=== PATIENT | male | born 1935 | race African-American/Black ===

== ENCOUNTER 2017-02-08 14:55 | Inpatient (IN) | payer MEDICAID, MEDICARE, OTHER ==
[~2017-02-08] VITALS: Ht 172.7 cm; Wt 89.8 kg
[2017-02-08] VITALS (9 sets, daily range): BP systolic 115–154; BP diastolic 54–79
--- NOTE | 2017-02-08 15:29 | Emergency Room Report ---
History of Present Illness General Chief Complaint: Dizziness Source: Patient Present Illness HPI 81-year-old male history of CAD with 1 stent, also with a pacemaker, hypertension, presenting with dizziness and lightheadedness for one day. Patient states that the dizziness occurs only when he walks, and is relieved with rest. Denying any headache, blurry vision, nausea or vomiting. Denies any palpitations or shortness of breath. Patient states that every single time he walks he gets the dizziness, however there are no other relieving factors. Patient states that he has been eating and drinking normally, denies any recent viral illness or diarrhea. Allergies: Coded Allergies: No Known Allergies (Unverified , 02/08/17) Patient History Past Medical History: see triage record Past Surgical History: none Pertinent Family History: none Reviewed Nursing Documentation: PMH: Agreed, PSxH: Agreed Nursing Documentation-PMH Past Medical History: No History, Except For Hx Cardiac Problems: Yes - angioplasty, "fluid in lungs" Hx Pacemaker: Yes Review of Systems All Other Systems: negative except mentioned in HPI Physical Exam Vital Signs Date Time Temp Pulse Resp B/P (MAP) Pulse Ox O2 Delivery O2 Flow Rate FiO2 02/08/17 14:58 97.3 65 18 114/72 98 Room Air Sp02 EP Interpretation: reviewed, normal General Appearance: normal inspection, well appearing, no apparent distress, alert, GCS 15, non-toxic Head: normocephalic, atraumatic Eyes: bilateral eye normal inspection, bilateral eye PERRL, bilateral eye EOMI ENT: normal ENT inspection, normal pharynx, normal voice, moist mucus membranes Neck: normal inspection, full range of motion, supple Respiratory: normal inspection, lungs clear, normal breath sounds, no respiratory distress, no retraction, no wheezing, speaking full sentences, chest symmetrical Cardiovascular #1: normal inspection, regular rate, rhythm, no edema, normal capillary refill Cardiovascular #2: 2+ radial (R), 2+ radial (L) Gastrointestinal: normal inspection, non tender, soft, non-distended, no guarding Genitourinary: no CVA tenderness Musculoskeletal: normal inspection, back normal, normal range of motion, non- tender Neurologic: normal inspection, alert, oriented x3, responsive, viticulturist III-XII nml as tested, motor strength/tone normal, sensory intact, speech normal, other - No nystagmus Psychiatric: normal inspection, judgement/insight normal, memory normal Skin: normal inspection, normal color, no rash, warm/dry, well hydrated, normal turgor Medical Decision Making Diagnostic Impression: Primary Impression: Dizziness of unknown cause ER Course 81-year-old male with one day of dizziness on exertion DDX: ACS vs. 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 Laboratory Tests Test 02/08/17 16:00 02/08/17 16:20 White Blood Count 6.4 K/UL (4.8-10.8) Red Blood Count 4.78 M/UL (4.70-6.10) Hemoglobin 14.1 G/DL (14.2-18.0) L Hematocrit 42.2 % (42.0-52.0) Mean Corpuscular Volume 88 FL (80-99) Mean Corpuscular Hemoglobin 29.5 PG (27.0-31.0) Mean Corpuscular Hemoglobin Concent 33.4 G/DL (32.0-36.0) Red Cell Distribution Width 12.9 % (11.6-14.8) Platelet Count 139 K/UL (150-450) L Mean Platelet Volume 9.8 FL (6.5-10.1) Neutrophils (%) (Auto) 63.8 % (45.0-75.0) Lymphocytes (%) (Auto) 24.6 % (20.0-45.0) Monocytes (%) (Auto) 9.6 % (1.0-10.0) Eosinophils (%) (Auto) 0.5 % (0.0-3.0) Basophils (%) (Auto) 1.6 % (0.0-2.0) Sodium Level 141 mEQ/L (135-145) Potassium Level 4.7 mEQ/L (3.4-4.9) Chloride Level 105 mEQ/L (98-107) Carbon Dioxide Level 25 mEQ/L (20-30) Anion Gap 11 (5-15) Blood Urea Nitrogen 16 mg/dL (7-23) Creatinine 1.5 mg/dL (0.7-1.2) H Estimate Glomerular Filtration Rate mL/min (>60) Glucose Level 119 mg/dL (74-106) H Calcium Level 9.0 mg/dL (8.6-10.2) Total Bilirubin 0.3 mg/dL (0.0-1.2) Aspartate Amino Transferase (AST) 19 U/L (5-40) Alanine Aminotransferase (ALT) 11 U/L (3-41) Alkaline Phosphatase 70 U/L (40-129) Total Creatine Kinase 107 U/L (38-174) Creatine Kinase MB 2.3 ng/mL (< 6.7) Creatine Kinase MB Relative Index 2.1 Troponin I < 0.30 ng/mL (<=0.30) Pro-B-Type Natriuretic Peptide 2300 pg/mL (0-450) H Total Protein 7.0 g/dL (6.6-8.7) Albumin 3.9 g/dL (3.5-5.2) Globulin 3.1 g/dL Albumin/Globulin Ratio 1.2 (1.0-2.7) Urine Color Yellow Urine Appearance Clear Urine pH 6 (4.5-8.0) Urine Specific [place] 1.020 (1.005-1.035) Urine Protein 3+ (NEGATIVE) H Urine Glucose (UA) Negative (NEGATIVE) Urine Ketones Negative (NEGATIVE) Urine Occult Blood Negative (NEGATIVE) Urine Nitrite Negative (NEGATIVE) Urine Bilirubin Negative (NEGATIVE) Urine Urobilinogen 8 MG/DL (0.0-1.0) H Urine Leukocyte Esterase Negative (NEGATIVE) Urine RBC 0-2 /HPF (0 - 0) H Urine WBC 0-2 /HPF (0 - 0) Urine Squamous Epithelial Cells None /LPF (NONE/OCC) Urine Calcium Oxalate Crystals Few /LPF (NONE) Urine Bacteria None /HPF (NONE) EKG Diagnostic Results Rate: normal Rhythm: other - V paced ST Segments: other - borderline peaked T waves, TWI aVL, discordant KRISTIN precordial leads ASA given to the pt in ED: No Rhythm Strip Diag. Results EP Interpretation: yes Rate: 65 Rhythm: other - V paced CT/MRI/US Diagnostic Results CT/MRI/US Diagnostic Results : Imaging Test Ordered: CT head Impression Impression No intracranial hemorrhage, mass effect or edema No evidence of acute cortical stroke Ventricular small vessel ischemic change. Cerebral atrophy. via [facility] Electronically signed by Christina Gonzales MD Last Vital Signs Date Time Temp Pulse Resp B/P (MAP) Pulse Ox O2 Delivery O2 Flow Rate FiO2 02/08/17 14:58 97.3 65 18 114/72 98 Room Air Disposition: ADMITTED INPATIENT Condition: Serious Christina Gonzales M.D. Feb 08, 2017 15:29
[2017-02-08 16:31] LABS: BASOPHILS % (AUTO) 1.6 % (0.0-2.0); EOSINOPHILS % (AUTO) 0.5 % (0.0-3.0); LYMPHOCYTES % (AUTO) 24.6 % (20.0-45.0); MEAN CORPUSCULAR HEMOGLOBIN 29.5 PG (27.0-31.0); MEAN CORPUSCULAR HGB CONC 33.4 G/DL (32.0-36.0); MEAN CORPUSCULAR VOLUME 88 FL (80-99); MEAN PLATELET VOLUME 9.8 FL (6.5-10.1); MONOCYTES % (AUTO) 9.6 % (1.0-10.0); NEUTROPHILS % (AUTO) 63.8 % (45.0-75.0); PLATELET COUNT 139 K/UL (150-450); RED BLOOD COUNT 4.78 M/UL (4.70-6.10); RED CELL DISTRIBUTION WIDTH 12.9 % (11.6-14.8); WHITE BLOOD COUNT 6.4 K/UL (4.8-10.8)
--- NOTE | 2017-02-08 16:40 | Diagnostic Imaging Report ---
Indication: Chest pain Comparison: December 27, 2005 A single view chest radiograph was obtained. Findings: No definite infiltrate or pulmonary vascular congestion identified. The heart is enlarged. The bones are osteopenic. Impression: No acute disease
[2017-02-08 16:48] LABS: TROPONIN I < 0.30 ng/mL (<=0.30)
[2017-02-08 16:56] LABS: ALANINE AMINOTRANSFERASE 11 U/L (3-41); ALBUMIN/GLOBULIN RATIO 1.2 (1.0-2.7); ANION GAP 11 (5-15); ASPARTATE AMINO TRANSFERASE 19 U/L (5-40); CARBON DIOXIDE 25 mEQ/L (20-30); CHLORIDE 105 mEQ/L (98-107); CREATININE 1.5 mg/dL (0.7-1.2); HEMOLYSIS 1; POTASSIUM 4.7 mEQ/L (3.4-4.9); SODIUM 141 mEQ/L (135-145)
[2017-02-08 17:04] LABS: APPEARANCE,URINE CLEAR; KETONES,URINE NEGATIVE (NEGATIVE); LEUKOCYTE ESTERASE ,URINE NEGATIVE (NEGATIVE); NITRITE,URINE NEGATIVE (NEGATIVE); PH,URINE 6 (4.5-8.0); PROTEIN,URINE 3+ (NEGATIVE); UROBILINOGEN,URINE 8 MG/DL (0.0-1.0)
[2017-02-08 17:06] LABS: CKMB 2.3 ng/mL (< 6.7)
[2017-02-08 17:10] LABS: CALCIUM OXALATE CRYSTALS,UR FEW /LPF; RBC,URINE 0-2 /HPF (0 - 0); WBC,URINE 0-2 /HPF (0 - 0)
[2017-02-08] MEDS ORDERED: Meclizine 25mg tab ORAL ONE (17:30)
[2017-02-08] MEDS ORDERED: NAPROXEN250 M1 PO (17:36)
[2017-02-08] MEDS ORDERED: LIPITOR80 MG ORAL (17:36)
[2017-02-08] MEDS ORDERED: OMEGA 3 1,0001 EACH PO (17:36)
[2017-02-08] MEDS ORDERED: CARVEDILOL3.125 MG ORAL (17:36)
[2017-02-08] MEDS ORDERED: COUMADIN2 MG ORAL (17:36)
[2017-02-08] MEDS ORDERED: DuoNeb 0.5-3(2.5)mg/3ml neb HHN PRN (18:45)
[2017-02-08] MEDS ORDERED: LORazepam Inj 2mg/ml 1ml IV PRN (18:45)
[2017-02-08] MEDS ORDERED: Miralax 17gm pkt ORAL PRN (18:45)
[2017-02-08] MEDS ORDERED: Mylanta II UD 30ml ORAL PRN (18:45)
[2017-02-08] MEDS ORDERED: Nitroglycerin Subl 0.4mg tab (Bottle Of 25) SL PRN (18:45)
[2017-02-08] MEDS ORDERED: Morphine Sulfate 2mg/ml Inj IVP PRN (18:45)
[2017-02-08] MEDS: Atorvastatin 80mg tab ORAL SCH (22:45)
[2017-02-08] MEDS: Heparin 5000 units/ml inj SUBQ SCH (22:47)
[2017-02-09 00:01] VITALS: BP 159/77
[2017-02-09 03:46] VITALS: BP 151/74
[2017-02-09 06:59] LABS: INR 1.9 (0.9-1.1); PROTHROMBIN TIME 20.5 SEC (9.30-11.50)
[2017-02-09 07:13] LABS: BASOPHILS % (AUTO) 0.7 % (0.0-2.0); EOSINOPHILS % (AUTO) 0.7 % (0.0-3.0); LYMPHOCYTES % (AUTO) 33.8 % (20.0-45.0); MEAN CORPUSCULAR HEMOGLOBIN 29.8 PG (27.0-31.0); MEAN CORPUSCULAR HGB CONC 33.5 G/DL (32.0-36.0); MEAN CORPUSCULAR VOLUME 89 FL (80-99); MEAN PLATELET VOLUME 9.4 FL (6.5-10.1); MONOCYTES % (AUTO) 9.7 % (1.0-10.0); NEUTROPHILS % (AUTO) 55.1 % (45.0-75.0); PLATELET COUNT 142 K/UL (150-450); RED CELL DISTRIBUTION WIDTH 12.9 % (11.6-14.8); WHITE BLOOD COUNT 7.2 K/UL (4.8-10.8)
[2017-02-09 07:20] LABS: ALANINE AMINOTRANSFERASE 12 U/L (3-41); ANION GAP 10 (5-15); ASPARTATE AMINO TRANSFERASE 19 U/L (5-40); CALCIUM 8.9 mg/dL (8.6-10.2); CARBON DIOXIDE 26 mEQ/L (20-30); CHLORIDE 106 mEQ/L (98-107); CHOLESTEROL 135 mg/dL (< 200); CHOLESTEROL/HDL RATIO 2.9 (3.3-4.4); CREATININE 1.4 mg/dL (0.7-1.2); HEMOLYSIS 5; LDL CHOLESTEROL (CALC.) 60 mg/dL (60-99); POTASSIUM 4.3 mEQ/L (3.4-4.9); SODIUM 142 mEQ/L (135-145); TOTAL PROTEIN 6.7 g/dL (6.6-8.7)
[2017-02-09 08:00] VITALS: BP 143/72
--- NOTE | 2017-02-09 08:24 | Diagnostic Imaging Report ---
Indication: DIZZY Technique: spiral acquisitions obtained through the brain. Angled axial and coronal 5 x 5 mm slices were reconstructed. No IV contrast utilized. Radiation dose was minimized using automated exposure control Total dose length product 1347 mGycm. CTDIvol(s) 70 mGy Comparison: none FINDINGS: No acute hemorrhage or edema. No mass effect or midline shift. There is age-related enlargement of the ventricles and extra axial CSF spaces. There is periventricular deep white matter ischemic change. Normal schmidt-white differentiation. Visualized orbits are unremarkable. Visualized sinuses are unremarkable. Intact calvarium. IMPRESSION: Chronic and age-related changes. Negative for acute intracranial bleed or mass effect This agrees with the preliminary interpretation provided overnight by [facility] teleradiology service. The CT scanner at [facility] is accredited by the [employer] and the scans are performed using protocols designed to limit radiation exposure to as low as reasonably achievable to attain images of sufficient resolution adequate for diagnostic evaluation
[2017-02-09] MEDS: Heparin 5000 units/ml inj SUBQ SCH ×2 (08:46→20:44)
--- NOTE | 2017-02-09 10:57 | Consultation ---
History of Present Illness General Date patient seen: Feb 09, 2017 Chief Complaint: Dizziness Referring physician: Dr. Leon Reason for Consultation: ipatient management Present Illness HPI 81-year-old male history of CAD with 1 stent, pacemaker, hypertension, presented to [facility] ER with CC of dizziness and lightheadedness for one day. Patient states that the dizziness occurs only when he walks, and is relieved with rest. Denying any headache, blurry vision, nausea or vomiting. Denies any palpitations or shortness of breath. Patient states that every single time he walks he gets the dizziness. Pt is admitted to telemetry for further work up. Allergies: Coded Allergies: No Known Allergies (Unverified , 02/08/17) Medication History Scheduled Atorvastatin (Lipitor), 80 MG ORAL BEDTIME, (Reported) Carvedilol* (Carvedilol*), 3.125 MG ORAL EVERY 12 HOURS, (Reported) Naproxen (Naproxen), 250 MG PO BID, (Reported) Warfarin Sod* (Coumadin*), 2 MG ORAL DAILY, (Reported) Miscellaneous Medications [place]-3 Fatty Acids/Fish Oil ([place] 3 1,000 Mg Softgel), 1 EACH PO, (Reported) Patient History Healthcare decision maker Resuscitation status Full Code Advanced Directive on File Yes Past Medical/Surgical History Past Medical/Surgical History: (1) CAD (coronary artery disease) (2) Stented coronary artery (3) Pacemaker (4) Acute encephalopathy Review of Systems All Other Systems: negative except mentioned in HPI Physical Exam General Appearance: WD/WN Lines, tubes and drains: peripheral HEENT: normocephalic, anicteric Neck: non-tender Respiratory/Chest: chest wall non-tender Abdomen: normal bowel sounds, non tender Genitourinary/Rectal: normal genital exam Extremities: normal range of motion, non-tender Skin Exam: normal pigmentation Last 24 Hour Vital Signs Date Time Temp Pulse Resp B/P (MAP) Pulse Ox O2 Delivery O2 Flow Rate FiO2 02/09/17 08:46 66 143/72 02/09/17 08:00 68 02/09/17 08:00 97.5 66 20 143/72 99 Room Air 02/09/17 04:00 66 02/09/17 03:46 97.3 65 20 151/74 98 Room Air 65 02/09/17 03:44 97.3 65 65 02/09/17 00:01 96.8 65 20 159/77 97 Room Air 02/09/17 00:00 68 02/08/17 22:45 66 153/77 02/08/17 22:07 97.5 66 20 141/68 98 Room Air 02/08/17 21:50 98.7 69 16 138/72 99 Room Air 02/08/17 21:30 98.7 69 16 138/72 99 Room Air 02/08/17 21:00 97.6 72 17 142/70 100 Room Air 02/08/17 19:35 97.8 68 18 139/71 99 Room Air 02/08/17 18:08 65 22 140/70 100 Room Air 02/08/17 17:08 65 20 154/79 100 Room Air 02/08/17 16:08 65 23 147/70 100 Room Air 02/08/17 15:30 65 20 137/67 100 Room Air 118/60 115/54 02/08/17 15:08 97.6 68 20 147/70 100 Room Air 02/08/17 14:58 97.3 65 18 114/72 98 Room Air Laboratory Tests Test 02/08/17 16:00 02/08/17 16:20 02/09/17 04:30 02/09/17 06:15 White Blood Count 6.4 K/UL (4.8-10.8) 7.2 K/UL (4.8-10.8) Red Blood Count 4.78 M/UL (4.70-6.10) 4.80 M/UL (4.70-6.10) Hemoglobin 14.1 G/DL (14.2-18.0) L 14.3 G/DL (14.2-18.0) Hematocrit 42.2 % (42.0-52.0) 42.7 % (42.0-52.0) Mean Corpuscular Volume 88 FL (80-99) 89 FL (80-99) Mean Corpuscular Hemoglobin 29.5 PG (27.0-31.0) 29.8 PG (27.0-31.0) Mean Corpuscular Hemoglobin Concent 33.4 G/DL (32.0-36.0) 33.5 G/DL (32.0-36.0) Red Cell Distribution Width 12.9 % (11.6-14.8) 12.9 % (11.6-14.8) Platelet Count 139 K/UL (150-450) L 142 K/UL (150-450) L Mean Platelet Volume 9.8 FL (6.5-10.1) 9.4 FL (6.5-10.1) Neutrophils (%) (Auto) 63.8 % (45.0-75.0) 55.1 % (45.0-75.0) Lymphocytes (%) (Auto) 24.6 % (20.0-45.0) 33.8 % (20.0-45.0) Monocytes (%) (Auto) 9.6 % (1.0-10.0) 9.7 % (1.0-10.0) Eosinophils (%) (Auto) 0.5 % (0.0-3.0) 0.7 % (0.0-3.0) Basophils (%) (Auto) 1.6 % (0.0-2.0) 0.7 % (0.0-2.0) Sodium Level 141 mEQ/L (135-145) 142 mEQ/L (135-145) Potassium Level 4.7 mEQ/L (3.4-4.9) 4.3 mEQ/L (3.4-4.9) Chloride Level 105 mEQ/L (98-107) 106 mEQ/L (98-107) Carbon Dioxide Level 25 mEQ/L (20-30) 26 mEQ/L (20-30) Anion Gap 11 (5-15) 10 (5-15) Blood Urea Nitrogen 16 mg/dL (7-23) 18 mg/dL (7-23) Creatinine 1.5 mg/dL (0.7-1.2) H 1.4 mg/dL (0.7-1.2) H Estimat Glomerular Filtration Rate mL/min (>60) mL/min (>60) Glucose Level 119 mg/dL (74-106) H 108 mg/dL (74-106) H Calcium Level 9.0 mg/dL (8.6-10.2) 8.9 mg/dL (8.6-10.2) Total Bilirubin 0.3 mg/dL (0.0-1.2) 0.4 mg/dL (0.0-1.2) Aspartate Amino Transf (AST/SGOT) 19 U/L (5-40) 19 U/L (5-40) Alanine Aminotransferase (ALT/SGPT) 11 U/L (3-41) 12 U/L (3-41) Alkaline Phosphatase 70 U/L (40-129) 66 U/L (40-129) Total Creatine Kinase 107 U/L (38-174) Creatine Kinase MB 2.3 ng/mL (< 6.7) Creatine Kinase MB Relative Index 2.1 Troponin I < 0.30 ng/mL (<=0.30) Pro-B-Type Natriuretic Peptide 2300 pg/mL (0-450) H Total Protein 7.0 g/dL (6.6-8.7) 6.7 g/dL (6.6-8.7) Albumin 3.9 g/dL (3.5-5.2) 3.5 g/dL (3.5-5.2) Globulin 3.1 g/dL 3.2 g/dL Albumin/Globulin Ratio 1.2 (1.0-2.7) 1.0 (1.0-2.7) Urine Color Yellow Urine Appearance Clear Urine pH 6 (4.5-8.0) Urine Specific [place] 1.020 (1.005-1.035) Urine Protein 3+ (NEGATIVE) H Urine Glucose (UA) Negative (NEGATIVE) Urine Ketones Negative (NEGATIVE) Urine Occult Blood Negative (NEGATIVE) Urine Nitrite Negative (NEGATIVE) Urine Bilirubin Negative (NEGATIVE) Urine Urobilinogen 8 MG/DL (0.0-1.0) H Urine Leukocyte Esterase Negative (NEGATIVE) Urine RBC 0-2 /HPF (0 - 0) H Urine WBC 0-2 /HPF (0 - 0) Urine Squamous Epithelial Cells None /LPF (NONE/OCC) Urine Calcium Oxalate Crystals Few /LPF (NONE) Urine Bacteria None /HPF (NONE) Triglycerides Level 142 mg/dL (< 150) Cholesterol Level 135 mg/dL (< 200) LDL Cholesterol 60 mg/dL (60-99) HDL Cholesterol 47 mg/dL (> 60) Cholesterol/HDL Ratio 2.9 (3.3-4.4) L Thyroid Stimulating Hormone (TSH) 1.810 uIU/mL (0.300-4.500) Prothrombin Time 20.5 SEC (9.30-11.50) H Prothromb Time International Ratio 1.9 (0.9-1.1) H Activated Partial Thromboplast Time 36 SEC (23-33) H Height (Feet): 5 Height (Inches): 8.00 Weight (Pounds): 198 Medications Current Medications Medications (Trade) Dose Ordered Sig/Tommy Route PRN Reason Start Time Stop Time Status Last Admin Dose Admin Acetaminophen (Tylenol) 650 mg Q4H PRN ORAL fever 02/08/17 18:45 03/10/17 18:44 Al Hydroxide/Mg Hydroxide (Mylanta II) 30 ml Q6H PRN ORAL dyspepsia 02/08/17 18:45 03/10/17 18:44 Albuterol/ Ipratropium (DuoNeb 0.5-3(2.5)mg/3ml) 3 ml Q4H PRN HHN Shortness of Breath 02/08/17 18:45 02/13/17 18:44 Atorvastatin Calcium (Lipitor) 80 mg BEDTIME ORAL 02/08/17 23:00 03/10/17 22:59 02/08/17 22:45 Carvedilol (Coreg) 3.125 mg EVERY 12 HOURS ORAL 02/08/17 23:00 03/10/17 22:59 02/09/17 08:46 Clonidine HCl (Catapres) 0.1 mg Q4H PRN ORAL For High Blood Pressure 02/08/17 18:45 03/10/17 18:44 Dextrose (Dextrose 50%) STAT PRN IV Hypoglycemia 02/08/17 18:45 03/10/17 18:44 Heparin Sodium (Porcine) (Heparin 5000 units/ml) 5,000 units EVERY 12 HOURS SUBQ 02/08/17 23:00 03/10/17 22:59 Lorazepam (Ativan 2mg/ml 1ml) 0.5 mg Q4H PRN IV For Anxiety 02/08/17 18:45 02/15/17 18:44 Morphine Sulfate (Morphine Sulfate) 1 mg Q4H PRN IVP For Pain 7-10 02/08/17 18:45 02/15/17 18:44 Nitroglycerin (Ntg) 0.4 mg Q5M X 3 DOSES PRN SL Prn Chest Pain 02/08/17 18:45 03/10/17 18:44 Ondansetron HCl (Zofran) 4 mg Q6H PRN IVP Nausea & Vomiting 02/08/17 18:45 03/10/17 18:44 Polyethylene Glycol (Miralax) 17 gm HSPRN PRN ORAL Constipation 02/08/17 18:45 03/10/17 18:44 Temazepam (Restoril) 15 mg HSPRN PRN ORAL Insomnia 02/08/17 18:45 02/15/17 18:44 Assessment/Plan Problem List: (1) Dizziness of unknown cause ICD Codes: R42 - Dizziness and giddiness SNOMED: 024120318 (2) Pacemaker ICD Codes: Z95.0 - Presence of cardiac pacemaker SNOMED: 924567286, 645038764 (3) CAD (coronary artery disease) ICD Codes: I25.10 - Atherosclerotic heart disease of [place] coronary artery without angina pectoris SNOMED: 27955570 (4) Stented coronary artery ICD Codes: Z95.5 - Presence of coronary angioplasty implant and graft SNOMED: 08853356, 643412477 (5) Acute encephalopathy ICD Codes: G93.40 - Encephalopathy, unspecified SNOMED: 9388832 Assessment/Plan 2d echo doppler of carotid artery neuro evaluation cardiac evaluation [place] Feb 09, 2017 10:57
[2017-02-09 11:48] VITALS: BP 126/71
[2017-02-09 13:17] LABS: URIC ACID 6.6 mg/dL (3.0-7.5)
[2017-02-09 14:05] LABS: APPEARANCE,URINE CLEAR; KETONES,URINE NEGATIVE (NEGATIVE); LEUKOCYTE ESTERASE ,URINE 1+ (NEGATIVE); NITRITE,URINE NEGATIVE (NEGATIVE); PH,URINE 6 (4.5-8.0); PROTEIN,URINE 2+ (NEGATIVE); UROBILINOGEN,URINE 4 MG/DL (0.0-1.0)
[2017-02-09 14:25] LABS: BACTERIA,URINE FEW /HPF; RBC,URINE 0-2 /HPF (0 - 0); SQUAMOUS EPITHELIAL CELL,UR OCCASIONAL /LPF (NONE/OCC)
--- NOTE | 2017-02-09 14:52 | History & Physical ---
History and Physical History & Physicial Adam Acosta MD Feb 09, 2017 14:52
[2017-02-09 16:00] VITALS: BP 156/71
--- NOTE | 2017-02-09 16:52 | Cardiology Progress Note ---
Assessment/Plan Assessment/Plan dizziness ? related to afib and loss a trial kick as well as paf s/p pacer implantation with joe as of yest paf now back into sinus cad hx of pci hso f chf pef pacer interrogated joe noted as of yesat reporgrammed to ddd mode with pt distinctively better now back to simnuf form afib keep on anticoagualtion with coumadin need pacer generator changed soon understood he want to go home today [id number] Objective Last 24 Hour Vital Signs Date Time Temp Pulse Resp B/P (MAP) Pulse Ox O2 Delivery O2 Flow Rate FiO2 02/09/17 16:00 60 02/09/17 16:00 97.9 61 20 156/71 97 Room Air 02/09/17 12:00 65 02/09/17 11:48 97.1 66 20 126/71 99 Room Air 02/09/17 08:46 66 143/72 02/09/17 08:00 68 02/09/17 08:00 97.5 66 20 143/72 99 Room Air 02/09/17 04:00 66 02/09/17 03:46 97.3 65 20 151/74 98 Room Air 65 02/09/17 03:44 97.3 65 65 02/09/17 00:01 96.8 65 20 159/77 97 Room Air 02/09/17 00:00 68 02/08/17 22:45 66 153/77 02/08/17 22:07 97.5 66 20 141/68 98 Room Air 02/08/17 21:50 98.7 69 16 138/72 99 Room Air 02/08/17 21:30 98.7 69 16 138/72 99 Room Air 02/08/17 21:00 97.6 72 17 142/70 100 Room Air 02/08/17 19:35 97.8 68 18 139/71 99 Room Air 02/08/17 18:08 65 22 140/70 100 Room Air 02/08/17 17:08 65 20 154/79 100 Room Air Laboratory Tests Test 02/09/17 04:30 02/09/17 06:15 02/09/17 13:57 White Blood Count 7.2 K/UL (4.8-10.8) Red Blood Count 4.80 M/UL (4.70-6.10) Hemoglobin 14.3 G/DL (14.2-18.0) Hematocrit 42.7 % (42.0-52.0) Mean Corpuscular Volume 89 FL (80-99) Mean Corpuscular Hemoglobin 29.8 PG (27.0-31.0) Mean Corpuscular Hemoglobin Concent 33.5 G/DL (32.0-36.0) Red Cell Distribution Width 12.9 % (11.6-14.8) Platelet Count 142 K/UL (150-450) L Mean Platelet Volume 9.4 FL (6.5-10.1) Neutrophils (%) (Auto) 55.1 % (45.0-75.0) Lymphocytes (%) (Auto) 33.8 % (20.0-45.0) Monocytes (%) (Auto) 9.7 % (1.0-10.0) Eosinophils (%) (Auto) 0.7 % (0.0-3.0) Basophils (%) (Auto) 0.7 % (0.0-2.0) Sodium Level 142 mEQ/L (135-145) Potassium Level 4.3 mEQ/L (3.4-4.9) Chloride Level 106 mEQ/L (98-107) Carbon Dioxide Level 26 mEQ/L (20-30) Anion Gap 10 (5-15) Blood Urea Nitrogen 18 mg/dL (7-23) Creatinine 1.4 mg/dL (0.7-1.2) H Estimat Glomerular Filtration Rate mL/min (>60) Glucose Level 108 mg/dL (74-106) H Uric Acid 6.6 mg/dL (3.0-7.5) Calcium Level 8.9 mg/dL (8.6-10.2) Total Bilirubin 0.4 mg/dL (0.0-1.2) Aspartate Amino Transf (AST/SGOT) 19 U/L (5-40) Alanine Aminotransferase (ALT/SGPT) 12 U/L (3-41) Alkaline Phosphatase 66 U/L (40-129) Total Creatine Kinase 87 U/L (38-174) Total Protein 6.7 g/dL (6.6-8.7) Albumin 3.5 g/dL (3.5-5.2) Globulin 3.2 g/dL Albumin/Globulin Ratio 1.0 (1.0-2.7) Triglycerides Level 142 mg/dL (< 150) Cholesterol Level 135 mg/dL (< 200) LDL Cholesterol 60 mg/dL (60-99) HDL Cholesterol 47 mg/dL (> 60) Cholesterol/HDL Ratio 2.9 (3.3-4.4) L Thyroid Stimulating Hormone (TSH) 1.810 uIU/mL (0.300-4.500) Prothrombin Time 20.5 SEC (9.30-11.50) H Prothromb Time International Ratio 1.9 (0.9-1.1) H Activated Partial Thromboplast Time 36 SEC (23-33) H Urine Color Yellow Urine Appearance Clear Urine pH 6 (4.5-8.0) Urine Specific [place] 1.020 (1.005-1.035) Urine Protein 2+ (NEGATIVE) H Urine Glucose (UA) Negative (NEGATIVE) Urine Ketones Negative (NEGATIVE) Urine Occult Blood Negative (NEGATIVE) Urine Nitrite Negative (NEGATIVE) Urine Bilirubin Negative (NEGATIVE) Urine Urobilinogen 4 MG/DL (0.0-1.0) H Urine Leukocyte Esterase 1+ (NEGATIVE) H Urine RBC 0-2 /HPF (0 - 0) H Urine WBC 2-4 /HPF (0 - 0) Urine Squamous Epithelial Cells Occasional /LPF Urine Bacteria Few /HPF (NONE) Urine Eosinophils None seen Urine Random Sodium 117 mmol/L Urine Potassium Timed 52 mmol/L CLAY GOMEZ Feb 09, 2017 16:52
[2017-02-09 20:00] VITALS: BP 145/64
[2017-02-09] MEDS: Atorvastatin 80mg tab ORAL SCH (20:42)
[2017-02-10] VITALS (7 sets, daily range): BP systolic 150–168; BP diastolic 71–77
--- NOTE | 2017-02-10 01:15 | History and Physical Report ---
DATE OF ADMISSION: 02/08/2017 CHIEF COMPLAINT: Near syncope and dizziness. History Of Present Illness: This is an 81-year-old gentleman with history of coronary artery disease status post PTCA with stent, sick sinus syndrome, status post pacemaker, hypertension, dyslipidemia, and congestive heart failure. The patient stated he had a pacemaker placed in 2004 with [employer] pacemaker, then generator replacement in 2010, who presented to the emergency room complaining about dizziness and lightheadedness since morning. The patient stated that dizziness occurred when he was walking out of his house. It was relieved with resting. Denies any headache, blurry vision, nausea, or vomiting. Denies any palpitations or shortness of breath. He stated that every single time that he walks he gets dizzy and however that relieves after the rest. Shortly after initial evaluation in the emergency room, the patient was admitted to the hospital with dizziness and near syncope. Past Medical History And Past Surgical History: As above. History of coronary artery disease with history of PTCA with stent, sick sinus syndrome, status post pacemaker, status post cholecystectomy in 1983, congestive heart failure, dyslipidemia, and hypertension. Medications: Medications at home are significant for Lipitor, Coreg, Naprosyn, omega-3, and warfarin. ALLERGIES: No known drug allergies. Social History: The patient quit smoking in 1983, 30 years pack smoker. He socially drinks. No substance. He is retired at this time. Family History: Father has history of diabetes. No history of coronary artery disease or myocardial infarction in the family. Denies any history of cancer in the family. Review Of Systems: Mostly as above. Denies any dysuria, frequency, or hematuria. Denies any hemoptysis or hematochezia. Denies any suicidal or homicidal ideation. Denies any double vision. Denies any bowel or urine incontinence. Positive history of arthritis. PHYSICAL EXAMINATION: Vital Signs: On admission, temperature 97.3 degrees, pulse of 65, respirations 18, and blood pressure 114/72. GENERAL: The patient is awake and responsive, no acute distress. Head And Neck: Pupils are equal and reactive to light. Extraocular movements are intact. NECK: Supple. No JVD. LUNGS: Good air entry. No wheezes or rales. Heart: S1 and S2 irregular. Distant heart sounds. Pacemaker leads noted in the left side of chest wall. ABDOMEN: Soft, nondistended, and morbidly obese. RECTAL: Refused and deferred. GENITOURINARY: Refused and deferred. EXTREMITIES: No cyanosis, clubbing, or edema. Neurologic: Cranial nerves II through XII grossly normal. Motor strength is 5/5 in all extremities. Gait is intact. Laboratory And Diagnostic Data: On admission from the ER, WBC of 6.4, hemoglobin 14, hematocrit 42, and platelet 139,000. Sodium 141, potassium 4.7, chloride 105, bicarbonate 25, BUN 16, creatinine 1.5, glucose is 119, and calcium is 9.0. First troponin less than 0.03. ProBNP of 2300. The patient's cholesterol is 135. Uric acid is 6.6. Urinalysis, +3 protein, no leukocytes. PT of 20, INR of 1.9, and PTT of 36. EKG with ventricular pacing with ventricular rate of 65. No ST elevation was noted. ASSESSMENT: 1. Syncopal episode, possibly due to the cardiac etiology such as arrhythmia. 2. Paroxysmal atrial fibrillation. 3. Dyslipidemia. 4. Congestive heart failure, chronic. 5. Sick sinus syndrome, status post pacemaker. 6. Mild obesity. 7. Presumed obstructive sleep apnea. Plan: Admit the patient to telemetry. We will followup with Dr. Munguia from Cardiology and Dr. Freitas, Pulmonary Critical Care. We interrogated the pacemaker. Code status is Full Code. We will resume home medications. PT evaluation for mobility. Continue Coumadin for DVT. Code status Full Code and if the patient's status improves, consider discharge home to be followed as outpatient for polysomnography. Adam Acosta M.D. DR: Padma JOB#: [id number] CC:
--- NOTE | 2017-02-10 05:01 | Consultation ---
DATE OF CONSULTATION: 02/09/2017 CARDIOLOGY CONSULTATION CONSULTING PHYSICIAN: Jose Munguia M.D. REFERRING PHYSICIAN: Phuc Freitas M.D. and Adam Acosta M.D. REASON FOR REFERRAL: Dizziness. History of Present Illness: This is an elderly gentleman, who is actually 81 years old, who presented to the hospital yesterday. He describes sensation of when he would walk. After a few steps, he would feel like he is dizzy. He cannot really describe whether it is lightheaded or not, but he describes a sensation of spinning. That sensation would persist for two to three seconds would go away if he would walk a little bit more stating that he had the same sensation. This occurred on several occasions walking back and forth to his car and from his car and eventually he give up walking, went into the car. When he did sit in the car, he did not have any of that sensation. In fact, he drove himself, initially to his work in the car and subsequently to the hospital. He denies any feeling of fainting, just dizziness and denies any feeling of balance issues. He is saying this is distinctly different than the sensation he had before he had his pacemaker implanted several years ago. Nevertheless, Dr. Freitas called me this morning. We arranged for his pacemaker to be interrogated. ROSA was reached as of yesterday. The VVI mode, which had occurred. The pacemaker was again reprogrammed to dual-chamber as the patient indicates immediately after that he felt a lot better, more energetic and he was able to walk around more so than he was prior to the episode before his defibrillator was reprogrammed. He has this pacemaker implanted back in 2004 he believes and since then he has had 1 generator replacement, but his sensation that he had yesterday and today was different than the sensation he had before it was placed. He does have a history of congestive heart failure. He was previously taken care of by Dr. Delonte Cowart, who has this past October and he had a recent stress test by the physician who has taken over Dr. Martel's. The stress test was done approximately two to three days ago and reportedly was negative. Last time he was hospitalized for congestive heart failure was back in October. At this time, he does not have any PND or orthopnea. He uses three pillows basically to watch TV, in the morning when he wakes up he has only one pillow underneath his head. He plays racquetball and does not have any chest pain, pressure, tightness, or heaviness in his chest nor is he short of breath except for occasion while he does play racque[employer]romex[employer]. He does not have PND as mentioned, no heart pounding or palpitation. No dizziness on standing. Past Medical History: Negative for diabetes or high blood pressure. He does have high cholesterol. He has taken medication. No heart attack. No cancer, stroke, hepatitis or tuberculosis. No asthma. No emphysema. He does have a history of ulcer disease. No kidney problems, liver problems, thyroid problems, or anemia. He does have some arthritis. He has never had any blood clots. He has coronary disease for which he has had the percutaneous coronary intervention and a stent that was placed a number of years ago and he got this pacemaker implantation as mentioned above as well as congestive heart failure. Medications: Medications at home, the patient takes Lipitor 80 mg bedtime, warfarin, Naprosyn, omega-3 and carvedilol. ALLERGIES: He is not allergic to any medications. Social History: He used to smoke and drink, but he has quit those, no drug use. He just recently got . As mentioned, he is playing racGiftology on regular basis. Review Of Systems: GI: Negative. : Negative. PULMONARY: Negative. CONSTITUTIONAL: Negative. NEUROLOGIC: Negative. CARDIAC: As mentioned in the history of present illness. PHYSICAL EXAMINATION: General: Shows to be an elderly gentleman, who looks younger than stated age. NECK: Supple. No jugular venous distention. LUNGS: Clear to auscultation and percussion. Cardiac: S1 is normal. S2 is normal. Regular rate and rhythm. No heaves, thrills, or gallops noted. ABDOMEN: Soft and nontender. Positive bowel sounds. EXTREMITIES: There is no clubbing, cyanosis, nor is there any edema. Neurological: He is awake, alert, responsive, and he moves all four extremities. Laboratory Values: Telemetry shows basically atrial paced ventricular sinus rhythm. Previously, the patient had ventricular paced with retrograde P-wave being noted and he had actually atrial fibrillation on his admission strips. The echocardiogram preliminary shows ejection fraction 65%. Mild valvular regurgitations and his EKG basically shows ventricular paced rhythm with possible retrograde P waves. His labs, white count 7.2, hemoglobin 14.3, and platelet count 142,000. Sodium is 142, potassium 4.3, chloride 106, bicarb 26, BUN of 18, creatinine 1.4, glucose of 108, uric acid 6.6. Liver function tests are normal. ProBNP is 2200. Troponin less than 0.03. Albumin of 3.5. Total cholesterol 135 with a LDL of 60 and HDL of 47. TSH of 1.8. Coags, INR 1.9 and a PTT of 36. Urinalysis shows 4+ urobilinogen, 1+ leukocyte esterase. A chest x-ray was performed that showed no acute disease. A CT scan of the head was performed that also shows chronic age-related changes, negative for acute intracranial bleed or mass effect. ASSESSMENT AND PLAN: 1. Episode of dizziness yesterday, which the patient describes as some spinning sensation although this may be related to mode switch on the pacemaker. 2. History of a dual-chamber pacemaker implantation now at elective replacement interval as of yesterday. 3. Paroxysmal episodes of atrial fibrillation and flutter. 4. Reported history of congestive heart failure and coronary disease status post coronary intervention. Dr. Acosta, this patient was seen in cardiac consultation. In this description, the patient provides unfortunately is vague, but it may be a constellation of symptoms including the fact that he is flipped into atrial fibrillation or flutter and has achieved elective replacement level his pacemaker, the component of vertebra cannot be excluded and should be considered. He seems to be on Coumadin. His INR was a bit subtherapeutic and I suspect that may be because of his proximal episodes of atrial fibrillation. He has no coronary ischemic syndrome. 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 His pacemaker has been interrogated today and elective replacement overall has been achieved. The patient's pacemaker was reprogrammed to dual chamber and he specifically indicates that he has significantly felt better once that occurred. It is likely that at least a component of symptoms were related to the atrial fibrillation and/or ROSA achievement of the pacemaker. He should be continued on anticoagulation with Coumadin. His Coumadin dose should be adjusted higher to achieve a therapeutic INR. He needs to follow up with Cardiology. He understands that he needs to have his pacemaker generator replaced as it appear to achieve ROSA as of yesterday. Jose Munguia M.D. DR: SEBASTIAN JOB#: [id number] CC:
[2017-02-10] MEDS: Heparin 5000 units/ml inj SUBQ SCH ×2 (08:31→21:04)
--- NOTE | 2017-02-10 11:17 | Diagnostic Imaging Report ---
Indication:Elevated Bun and Creatinine. Technique: Grayscale and duplex Doppler imaging of the kidneys performed. Comparison: None Findings: The size, contour, and echogenicity of both kidneys are within normal limits. Right kidney is between 11 and 12 cm. Left kidney is about 12 cm in length. There is no hydronephrosis. The IVC and urinary bladder are unremarkable. Impression: Negative study
--- NOTE | 2017-02-10 12:43 | Pulmonology Progress Note ---
Assessment/Plan Problems: (1) Dizziness of unknown cause (2) Pacemaker (3) CAD (coronary artery disease) (4) Stented coronary artery (5) Acute encephalopathy Assessment/Plan all noted dc home when ok with cardi symptomatic treatment Subjective ROS Limited/Unobtainable: No Constitutional: Reports: no symptoms HEENT: Repors: no symptoms Respiratory: Reports: no symptoms Allergies: Coded Allergies: No Known Allergies (Unverified , 02/08/17) Objective Last 24 Hour Vital Signs Date Time Temp Pulse Resp B/P (MAP) Pulse Ox O2 Delivery O2 Flow Rate FiO2 02/10/17 11:35 98.1 60 19 162/71 96 Room Air 02/10/17 09:30 60 152/75 02/10/17 08:29 60 165/77 02/10/17 08:17 97.8 60 20 165/77 95 Room Air 02/10/17 07:54 60 02/10/17 04:00 97.0 60 18 150/74 97 Room Air 02/10/17 04:00 60 02/10/17 00:00 60 02/10/17 00:00 97.0 60 20 158/71 97 Room Air 02/09/17 20:39 55 145/64 02/09/17 20:00 97.9 55 20 145/64 97 Room Air 02/09/17 20:00 60 02/09/17 16:00 60 02/09/17 16:00 97.9 61 20 156/71 97 Room Air Intake and Output 02/10/17 02/11/17 19:00 07:00 Intake Total 460 ml Balance 460 ml Intake Oral 460 ml # Voids 2 General Appearance: WD/WN HEENT: normocephalic, atraumatic Respiratory/Chest: chest wall non-tender, lungs clear Cardiovascular: normal peripheral pulses, normal rate Abdomen: normal bowel sounds, soft, non tender Extremities: no cyanosis, no clubbing Neurologic/Psychiatric: jukebox operator II-XII grossly normal, no motor/sensory deficits Laboratory Tests 02/09/17 13:57: Urine Color Yellow, Urine Appearance Clear, Urine pH 6, Urine Specific [place] 1.020, Urine Protein 2+H, Urine Glucose (UA) Negative, Urine Ketones Negative, Urine Occult Blood Negative, Urine Nitrite Negative, Urine Bilirubin Negative, Urine Urobilinogen 4H, Urine Leukocyte Esterase 1+H, Urine RBC 0-2H, Urine WBC 2 -4, Urine Squamous Epithelial Cells Occasional, Urine Bacteria Few, Urine Eosinophils None seen, Urine Random Sodium 117, Urine Potassium Timed 52 Current Medications Medications (Trade) Dose Ordered Sig/Tommy Route PRN Reason Start Time Stop Time Status Last Admin Dose Admin Acetaminophen (Tylenol) 650 mg Q4H PRN ORAL fever 02/08/17 18:45 03/10/17 18:44 Al Hydroxide/Mg Hydroxide (Mylanta II) 30 ml Q6H PRN ORAL dyspepsia 02/08/17 18:45 03/10/17 18:44 Albuterol/ Ipratropium (DuoNeb 0.5-3(2.5)mg/3ml) 3 ml Q4H PRN HHN Shortness of Breath 02/08/17 18:45 02/13/17 18:44 Atorvastatin Calcium (Lipitor) 80 mg BEDTIME ORAL 02/08/17 23:00 03/10/17 22:59 02/09/17 20:42 Carvedilol (Coreg) 3.125 mg EVERY 12 HOURS ORAL 02/08/17 23:00 03/10/17 22:59 02/10/17 08:29 Clonidine HCl (Catapres) 0.1 mg Q4H PRN ORAL For High Blood Pressure 02/08/17 18:45 03/10/17 18:44 Dextrose (Dextrose 50%) STAT PRN IV Hypoglycemia 02/08/17 18:45 03/10/17 18:44 Heparin Sodium (Porcine) (Heparin 5000 units/ml) 5,000 units EVERY 12 HOURS SUBQ 02/08/17 23:00 03/10/17 22:59 02/10/17 08:31 Lorazepam (Ativan 2mg/ml 1ml) 0.5 mg Q4H PRN IV For Anxiety 02/08/17 18:45 02/15/17 18:44 Morphine Sulfate (Morphine Sulfate) 1 mg Q4H PRN IVP For Pain 7-10 02/08/17 18:45 02/15/17 18:44 Nitroglycerin (Ntg) 0.4 mg Q5M X 3 DOSES PRN SL Prn Chest Pain 02/08/17 18:45 03/10/17 18:44 Ondansetron HCl (Zofran) 4 mg Q6H PRN IVP Nausea & Vomiting 02/08/17 18:45 03/10/17 18:44 Polyethylene Glycol (Miralax) 17 gm HSPRN PRN ORAL Constipation 02/08/17 18:45 03/10/17 18:44 Temazepam (Restoril) 15 mg HSPRN PRN ORAL Insomnia 02/08/17 18:45 02/15/17 18:44 [place] Feb 10, 2017 12:43
--- NOTE | 2017-02-10 13:58 | Internal Med Progress Note ---
Subjective Date of Service: Feb 10, 2017 Physician Name Dalton Ray Attending Physician Adam Acosta MD Current Medications Medications (Trade) Dose Ordered Sig/Tommy Route PRN Reason Start Time Stop Time Status Last Admin Dose Admin Acetaminophen (Tylenol) 650 mg Q4H PRN ORAL fever 02/08/17 18:45 03/10/17 18:44 Al Hydroxide/Mg Hydroxide (Mylanta II) 30 ml Q6H PRN ORAL dyspepsia 02/08/17 18:45 03/10/17 18:44 Albuterol/ Ipratropium (DuoNeb 0.5-3(2.5)mg/3ml) 3 ml Q4H PRN HHN Shortness of Breath 02/08/17 18:45 02/13/17 18:44 Atorvastatin Calcium (Lipitor) 80 mg BEDTIME ORAL 02/08/17 23:00 03/10/17 22:59 02/09/17 20:42 Carvedilol (Coreg) 3.125 mg EVERY 12 HOURS ORAL 02/08/17 23:00 03/10/17 22:59 02/10/17 08:29 Clonidine HCl (Catapres) 0.1 mg Q4H PRN ORAL For High Blood Pressure 02/08/17 18:45 03/10/17 18:44 Dextrose (Dextrose 50%) STAT PRN IV Hypoglycemia 02/08/17 18:45 03/10/17 18:44 Heparin Sodium (Porcine) (Heparin 5000 units/ml) 5,000 units EVERY 12 HOURS SUBQ 02/08/17 23:00 03/10/17 22:59 02/10/17 08:31 Lorazepam (Ativan 2mg/ml 1ml) 0.5 mg Q4H PRN IV For Anxiety 02/08/17 18:45 02/15/17 18:44 Morphine Sulfate (Morphine Sulfate) 1 mg Q4H PRN IVP For Pain 7-10 02/08/17 18:45 02/15/17 18:44 Nitroglycerin (Ntg) 0.4 mg Q5M X 3 DOSES PRN SL Prn Chest Pain 02/08/17 18:45 03/10/17 18:44 Ondansetron HCl (Zofran) 4 mg Q6H PRN IVP Nausea & Vomiting 02/08/17 18:45 03/10/17 18:44 Polyethylene Glycol (Miralax) 17 gm HSPRN PRN ORAL Constipation 02/08/17 18:45 03/10/17 18:44 Temazepam (Restoril) 15 mg HSPRN PRN ORAL Insomnia 02/08/17 18:45 02/15/17 18:44 Allergies: Coded Allergies: No Known Allergies (Unverified , 02/08/17) ROS Limited/Unobtainable: No Constitutional: Reports: no symptoms HEENT: Reports: no symptoms Cardiovascular: Reports: no symptoms Respiratory: Reports: no symptoms Gastrointestinal/Abdominal: Reports: no symptoms Genitourinary: Reports: no symptoms Neurologic/Psychiatric: Reports: no symptoms Subjective 81 YO M admitted with dizziness and near syncope. Cover for Int Med-Dr Acosta. Objective Last Vital Signs Date Time Temp Pulse Resp B/P (MAP) Pulse Ox O2 Delivery O2 Flow Rate FiO2 02/10/17 11:35 98.1 60 19 162/71 96 Room Air General Appearance: WD/WN, no apparent distress, alert EENT: PERRL/EOMI, normal ENT inspection, TMs normal Neck: non-tender, normal alignment, supple, normal inspection Cardiovascular: normal peripheral pulses, normal rate, regular rhythm, no gallop/murmur, no JVD Respiratory/Chest: chest wall non-tender, no respiratory distress, no accessory muscle use Abdomen: normal bowel sounds, non tender, soft, no organomegaly, no mass Extremities: normal range of motion, non-tender Neurologic: observation assistant II-XII grossly normal Skin: normal pigmentation, warm/dry Laboratory Tests Test 02/09/17 13:57 Urine Color Yellow Urine Appearance Clear Urine pH 6 (4.5-8.0) Urine Specific [place] 1.020 (1.005-1.035) Urine Protein 2+ (NEGATIVE) H Urine Glucose (UA) Negative (NEGATIVE) Urine Ketones Negative (NEGATIVE) Urine Occult Blood Negative (NEGATIVE) Urine Nitrite Negative (NEGATIVE) Urine Bilirubin Negative (NEGATIVE) Urine Urobilinogen 4 MG/DL (0.0-1.0) H Urine Leukocyte Esterase 1+ (NEGATIVE) H Urine RBC 0-2 /HPF (0 - 0) H Urine WBC 2-4 /HPF (0 - 0) Urine Squamous Epithelial Cells Occasional /LPF Urine Bacteria Few /HPF (NONE) Urine Eosinophils None seen Urine Random Sodium 117 mmol/L Urine Potassium Timed 52 mmol/L Intake and Output 02/10/17 02/11/17 19:00 07:00 Intake Total 460 ml Balance 460 ml Intake Oral 460 ml # Voids 2 Assessment/Plan Problem List: (1) Vertigo (2) Near syncope (3) CHF (congestive heart failure) (4) Sick sinus syndrome Assessment & Plan: S/P pacemaker (5) Atrial fibrillation Assessment & Plan: Currently sinus. See cardiology note. (6) HTN (hypertension) (7) CAD (coronary artery disease) (8) Pacemaker Assessment & Plan: S/P interrogation. Will need new generator-see cardiology note. Status: stable DALTON RAY Feb 10, 2017 13:58
--- NOTE | 2017-02-10 16:40 | Cardiology Progress Note ---
Assessment/Plan Assessment/Plan dizziness ? related to afib and loss a trial kick as well as paf s/p pacer implantation with joe as of yest paf now back into sinus cad hx of pci hs of chf pacer interrogated joe noted as of 1 dptra device was reporgrammed to ddd mode yest with pt distinctively better now back to sinus from afib keep on anticoagulation with Coumadin need pacer generator changed soon understood doing well tele sinus Subjective Cardiovascular: Denies: chest pain, irregular heart rate, lightheadedness, palpitations Respiratory: Denies: shortness of breath Gastrointestinal/Abdominal: Denies: abdominal pain Genitourinary: Denies: burning Subjective has walked around nto had any problems Objective Last 24 Hour Vital Signs Date Time Temp Pulse Resp B/P (MAP) Pulse Ox O2 Delivery O2 Flow Rate FiO2 02/10/17 16:33 98.3 61 20 168/73 97 Room Air 02/10/17 11:55 56 02/10/17 11:35 98.1 60 19 162/71 96 Room Air 02/10/17 09:30 60 152/75 02/10/17 08:29 60 165/77 02/10/17 08:17 97.8 60 20 165/77 95 Room Air 02/10/17 07:54 60 02/10/17 04:00 97.0 60 18 150/74 97 Room Air 02/10/17 04:00 60 02/10/17 00:00 60 02/10/17 00:00 97.0 60 20 158/71 97 Room Air 02/09/17 20:39 55 145/64 02/09/17 20:00 97.9 55 20 145/64 97 Room Air 02/09/17 20:00 60 General Appearance: no apparent distress, alert Neck: supple Cardiovascular: normal rate, regular rhythm Respiratory/Chest: lungs clear, normal breath sounds Abdomen: normal bowel sounds, non tender, soft Extremities: no swelling Intake and Output 02/10/17 02/11/17 19:00 07:00 Intake Total 460 ml Balance 460 ml Intake Oral 460 ml # Voids 2 CLAY GOMEZ Feb 10, 2017 16:40
[2017-02-10 17:39] LABS: INR 1.5 (0.9-1.1); PROTHROMBIN TIME 16.1 SEC (9.30-11.50)
[2017-02-10] MEDS ORDERED: Warfarin Sodium 3mg ORAL ONE (19:30)
[2017-02-10] MEDS: Atorvastatin 80mg tab ORAL SCH (21:03)
[2017-02-11] VITALS: BP 169/78
[2017-02-11 02:08] VITALS: BP 155/71
[2017-02-11 04:00] VITALS: BP 135/66
[2017-02-11 08:00] VITALS: BP 154/72
[2017-02-11 08:34] LABS: BASOPHILS % (AUTO) 0.6 % (0.0-2.0); EOSINOPHILS % (AUTO) 0.9 % (0.0-3.0); LYMPHOCYTES % (AUTO) 28.5 % (20.0-45.0); MEAN CORPUSCULAR HEMOGLOBIN 28.9 PG (27.0-31.0); MEAN CORPUSCULAR HGB CONC 32.4 G/DL (32.0-36.0); MEAN CORPUSCULAR VOLUME 89 FL (80-99); MEAN PLATELET VOLUME 9.3 FL (6.5-10.1); MONOCYTES % (AUTO) 9.3 % (1.0-10.0); NEUTROPHILS % (AUTO) 60.8 % (45.0-75.0); PLATELET COUNT 144 K/UL (150-450); RED BLOOD COUNT 4.95 M/UL (4.70-6.10); RED CELL DISTRIBUTION WIDTH 12.8 % (11.6-14.8); WHITE BLOOD COUNT 6.8 K/UL (4.8-10.8)
[2017-02-11 08:47] LABS: INR 1.4 (0.9-1.1); PROTHROMBIN TIME 14.9 SEC (9.30-11.50)
[2017-02-11 08:52] LABS: ANION GAP 9 (5-15); CALCIUM 9.2 mg/dL (8.6-10.2); CARBON DIOXIDE 28 mEQ/L (20-30); CHLORIDE 105 mEQ/L (98-107); CREATININE 1.4 mg/dL (0.7-1.2); HEMOLYSIS 4; POTASSIUM 4.5 mEQ/L (3.4-4.9); SODIUM 142 mEQ/L (135-145)
[2017-02-11] MEDS: Heparin 5000 units/ml inj SUBQ SCH (08:55)
[2017-02-11 09:21] LABS: TROPONIN I < 0.30 ng/mL (<=0.30)
--- NOTE | 2017-02-11 11:39 | Pulmonology Progress Note ---
Assessment/Plan Problems: (1) Dizziness of unknown cause (2) Pacemaker (3) CAD (coronary artery disease) (4) Stented coronary artery (5) Acute encephalopathy Assessment/Plan all noted dc home when ok with cardi symptomatic treatment pace maker generator need to be changed, ? when pt is asymptomatic Subjective ROS Limited/Unobtainable: No Constitutional: Reports: no symptoms HEENT: Repors: no symptoms Respiratory: Reports: no symptoms Allergies: Coded Allergies: No Known Allergies (Unverified , 02/08/17) Objective Last 24 Hour Vital Signs Date Time Temp Pulse Resp B/P (MAP) Pulse Ox O2 Delivery O2 Flow Rate FiO2 02/11/17 08:55 62 154/72 02/11/17 08:00 62 02/11/17 08:00 97.8 62 19 154/72 98 Room Air 02/11/17 04:00 60 02/11/17 04:00 97.6 60 20 135/66 96 Room Air 02/11/17 02:08 155/71 02/11/17 00:37 169/78 02/11/17 00:00 61 02/11/17 00:00 97.7 60 20 169/78 97 Room Air 02/10/17 21:03 62 155/71 02/10/17 20:00 60 02/10/17 20:00 97.5 62 20 155/71 96 Room Air 02/10/17 16:33 98.3 61 20 168/73 97 Room Air 02/10/17 15:59 61 02/10/17 11:55 56 General Appearance: WD/WN, no acute distress HEENT: anicteric Respiratory/Chest: chest wall non-tender, lungs clear Cardiovascular: normal peripheral pulses, normal rate, regular rhythm, no JVD Abdomen: normal bowel sounds, soft, non tender Genitourinary: normal external genitalia Skin: no rash Laboratory Tests 02/10/17 17:10: Prothrombin Time 16.1H, Prothromb Time International Ratio 1.5H 02/11/17 07:00: Prothrombin Time 14.9H, Prothromb Time International Ratio 1.4H, White Blood Count 6.8, Red Blood Count 4.95, Hemoglobin 14.3, Hematocrit 44.2, Mean Corpuscular Volume 89, Mean Corpuscular Hemoglobin 28.9, Mean Corpuscular Hemoglobin Concent 32.4, Red Cell Distribution Width 12.8, Platelet Count 144L, Mean Platelet Volume 9.3, Neutrophils (%) (Auto) 60.8, Lymphocytes (%) (Auto) 28.5, Monocytes (%) (Auto) 9.3, Eosinophils (%) (Auto) 0.9, Basophils (%) (Auto ) 0.6, Sodium Level 142, Potassium Level 4.5, Chloride Level 105, Carbon Dioxide Level 28, Anion Gap 9, Blood Urea Nitrogen 17, Creatinine 1.4H, Estimat Glomerular Filtration Rate , Glucose Level 111H, Calcium Level 9.2, Troponin I < 0.30, Pro-B-Type Natriuretic Peptide 866H Current Medications Medications (Trade) Dose Ordered Sig/Tommy Route PRN Reason Start Time Stop Time Status Last Admin Dose Admin Acetaminophen (Tylenol) 650 mg Q4H PRN ORAL fever 02/08/17 18:45 03/10/17 18:44 Al Hydroxide/Mg Hydroxide (Mylanta II) 30 ml Q6H PRN ORAL dyspepsia 02/08/17 18:45 03/10/17 18:44 Albuterol/ Ipratropium (DuoNeb 0.5-3(2.5)mg/3ml) 3 ml Q4H PRN HHN Shortness of Breath 02/08/17 18:45 02/13/17 18:44 Atorvastatin Calcium (Lipitor) 80 mg BEDTIME ORAL 02/08/17 23:00 03/10/17 22:59 02/10/17 21:03 Carvedilol (Coreg) 3.125 mg EVERY 12 HOURS ORAL 02/08/17 23:00 03/10/17 22:59 02/11/17 08:55 Clonidine HCl (Catapres) 0.1 mg Q4H PRN ORAL For High Blood Pressure 02/08/17 18:45 03/10/17 18:44 02/11/17 00:37 Dextrose (Dextrose 50%) STAT PRN IV Hypoglycemia 02/08/17 18:45 03/10/17 18:44 Heparin Sodium (Porcine) (Heparin 5000 units/ml) 5,000 units EVERY 12 HOURS SUBQ 02/08/17 23:00 03/10/17 22:59 02/10/17 21:04 Lorazepam (Ativan 2mg/ml 1ml) 0.5 mg Q4H PRN IV For Anxiety 02/08/17 18:45 02/15/17 18:44 Morphine Sulfate (Morphine Sulfate) 1 mg Q4H PRN IVP For Pain 7-10 02/08/17 18:45 02/15/17 18:44 Nitroglycerin (Ntg) 0.4 mg Q5M X 3 DOSES PRN SL Prn Chest Pain 02/08/17 18:45 03/10/17 18:44 Ondansetron HCl (Zofran) 4 mg Q6H PRN IVP Nausea & Vomiting 02/08/17 18:45 03/10/17 18:44 Polyethylene Glycol (Miralax) 17 gm HSPRN PRN ORAL Constipation 02/08/17 18:45 03/10/17 18:44 Temazepam (Restoril) 15 mg HSPRN PRN ORAL Insomnia 02/08/17 18:45 02/15/17 18:44 Warfarin Sodium (Coumadin per pharmacy) 1 ea DAILY PRN MISC Per rx protocol 02/10/17 18:00 03/12/17 17:59 Warfarin Sodium (Coumadin) 6 mg COUMADIN ORAL 02/11/17 17:00 02/11/17 17:01 [place] Feb 11, 2017 11:39
[2017-02-11 12:28] VITALS: BP 163/72
--- NOTE | 2017-02-11 14:14 | Cardiology Progress Note ---
Assessment/Plan Assessment/Plan dizziness ? related to afib and loss a trial kick as well as paf s/p pacer implantation with joe as of yest paf now back into sinus cad hx of pci hs of chf pacer interrogated joe noted as of 1 dptra device was reporgrammed to ddd mode with pt distinctively better back and fort with afib ad sinus keep on anticoagulation with Coumadin need pacer generator changed soon understood doing well tele sinus Subjective Cardiovascular: Denies: chest pain, lightheadedness, palpitations Respiratory: Denies: shortness of breath, SOB with excertion Gastrointestinal/Abdominal: Denies: abdominal pain Genitourinary: Denies: burning Subjective has walked around nto had any problems Objective Last 24 Hour Vital Signs Date Time Temp Pulse Resp B/P (MAP) Pulse Ox O2 Delivery O2 Flow Rate FiO2 02/11/17 12:28 97.0 61 20 163/72 99 Room Air 02/11/17 11:47 60 02/11/17 08:55 62 154/72 02/11/17 08:00 62 02/11/17 08:00 97.8 62 19 154/72 98 Room Air 02/11/17 04:00 60 02/11/17 04:00 97.6 60 20 135/66 96 Room Air 02/11/17 02:08 155/71 02/11/17 00:37 169/78 02/11/17 00:00 61 02/11/17 00:00 97.7 60 20 169/78 97 Room Air 02/10/17 21:03 62 155/71 02/10/17 20:00 60 02/10/17 20:00 97.5 62 20 155/71 96 Room Air 02/10/17 16:33 98.3 61 20 168/73 97 Room Air 02/10/17 15:59 61 General Appearance: alert Neck: supple Cardiovascular: normal rate, regular rhythm Respiratory/Chest: lungs clear, normal breath sounds Abdomen: normal bowel sounds, non tender, soft Extremities: no swelling Intake and Output 02/11/17 02/12/17 19:00 07:00 Intake Total 240 ml Balance 240 ml Intake Oral 240 ml # Voids 2 Laboratory Tests Test 02/10/17 17:10 02/11/17 07:00 Prothrombin Time 16.1 SEC (9.30-11.50) H 14.9 SEC (9.30-11.50) H Prothromb Time International Ratio 1.5 (0.9-1.1) H 1.4 (0.9-1.1) H White Blood Count 6.8 K/UL (4.8-10.8) Red Blood Count 4.95 M/UL (4.70-6.10) Hemoglobin 14.3 G/DL (14.2-18.0) Hematocrit 44.2 % (42.0-52.0) Mean Corpuscular Volume 89 FL (80-99) Mean Corpuscular Hemoglobin 28.9 PG (27.0-31.0) Mean Corpuscular Hemoglobin Concent 32.4 G/DL (32.0-36.0) Red Cell Distribution Width 12.8 % (11.6-14.8) Platelet Count 144 K/UL (150-450) L Mean Platelet Volume 9.3 FL (6.5-10.1) Neutrophils (%) (Auto) 60.8 % (45.0-75.0) Lymphocytes (%) (Auto) 28.5 % (20.0-45.0) Monocytes (%) (Auto) 9.3 % (1.0-10.0) Eosinophils (%) (Auto) 0.9 % (0.0-3.0) Basophils (%) (Auto) 0.6 % (0.0-2.0) Sodium Level 142 mEQ/L (135-145) Potassium Level 4.5 mEQ/L (3.4-4.9) Chloride Level 105 mEQ/L (98-107) Carbon Dioxide Level 28 mEQ/L (20-30) Anion Gap 9 (5-15) Blood Urea Nitrogen 17 mg/dL (7-23) Creatinine 1.4 mg/dL (0.7-1.2) H Estimat Glomerular Filtration Rate mL/min (>60) Glucose Level 111 mg/dL (74-106) H Calcium Level 9.2 mg/dL (8.6-10.2) Troponin I < 0.30 ng/mL (<=0.30) Pro-B-Type Natriuretic Peptide 866 pg/mL (0-450) H CLAY GOMEZ Feb 11, 2017 14:14
--- NOTE | 2017-02-11 14:26 | Internal Med Progress Note ---
Subjective Date of Service: Feb 11, 2017 Physician Name Ray,Daryn Attending Physician Adam Acosta MD Current Medications Medications (Trade) Dose Ordered Sig/Tommy Route PRN Reason Start Time Stop Time Status Last Admin Dose Admin Acetaminophen (Tylenol) 650 mg Q4H PRN ORAL fever 02/08/17 18:45 03/10/17 18:44 Al Hydroxide/Mg Hydroxide (Mylanta II) 30 ml Q6H PRN ORAL dyspepsia 02/08/17 18:45 03/10/17 18:44 Albuterol/ Ipratropium (DuoNeb 0.5-3(2.5)mg/3ml) 3 ml Q4H PRN HHN Shortness of Breath 02/08/17 18:45 02/13/17 18:44 Atorvastatin Calcium (Lipitor) 80 mg BEDTIME ORAL 02/08/17 23:00 03/10/17 22:59 02/10/17 21:03 Carvedilol (Coreg) 3.125 mg EVERY 12 HOURS ORAL 02/08/17 23:00 03/10/17 22:59 02/11/17 08:55 Clonidine HCl (Catapres) 0.1 mg Q4H PRN ORAL For High Blood Pressure 02/08/17 18:45 03/10/17 18:44 02/11/17 00:37 Dextrose (Dextrose 50%) STAT PRN IV Hypoglycemia 02/08/17 18:45 03/10/17 18:44 Heparin Sodium (Porcine) (Heparin 5000 units/ml) 5,000 units EVERY 12 HOURS SUBQ 02/08/17 23:00 03/10/17 22:59 02/10/17 21:04 Lorazepam (Ativan 2mg/ml 1ml) 0.5 mg Q4H PRN IV For Anxiety 02/08/17 18:45 02/15/17 18:44 Morphine Sulfate (Morphine Sulfate) 1 mg Q4H PRN IVP For Pain 7-10 02/08/17 18:45 02/15/17 18:44 Nitroglycerin (Ntg) 0.4 mg Q5M X 3 DOSES PRN SL Prn Chest Pain 02/08/17 18:45 03/10/17 18:44 Ondansetron HCl (Zofran) 4 mg Q6H PRN IVP Nausea & Vomiting 02/08/17 18:45 03/10/17 18:44 Polyethylene Glycol (Miralax) 17 gm HSPRN PRN ORAL Constipation 02/08/17 18:45 03/10/17 18:44 Temazepam (Restoril) 15 mg HSPRN PRN ORAL Insomnia 02/08/17 18:45 02/15/17 18:44 Warfarin Sodium (Coumadin per pharmacy) 1 ea DAILY PRN MISC Per rx protocol 02/10/17 18:00 03/12/17 17:59 Warfarin Sodium (Coumadin) 6 mg COUMADIN ORAL 02/11/17 17:00 02/11/17 17:01 Allergies: Coded Allergies: No Known Allergies (Unverified , 02/08/17) ROS Limited/Unobtainable: No Constitutional: Reports: no symptoms HEENT: Reports: no symptoms Cardiovascular: Reports: no symptoms Respiratory: Reports: no symptoms Gastrointestinal/Abdominal: Reports: no symptoms Genitourinary: Reports: no symptoms Neurologic/Psychiatric: Reports: no symptoms Subjective 81 YO M admitted with dizziness and near syncope. Cover for [facility] Med-Dr Acosta. Await discharge home today Objective Last Vital Signs Date Time Temp Pulse Resp B/P (MAP) Pulse Ox O2 Delivery O2 Flow Rate FiO2 02/11/17 12:28 97.0 61 20 163/72 99 Room Air Laboratory Tests Test 02/10/17 17:10 02/11/17 07:00 Prothrombin Time 16.1 SEC (9.30-11.50) H 14.9 SEC (9.30-11.50) H Prothromb Time International Ratio 1.5 (0.9-1.1) H 1.4 (0.9-1.1) H White Blood Count 6.8 K/UL (4.8-10.8) Red Blood Count 4.95 M/UL (4.70-6.10) Hemoglobin 14.3 G/DL (14.2-18.0) Hematocrit 44.2 % (42.0-52.0) Mean Corpuscular Volume 89 FL (80-99) Mean Corpuscular Hemoglobin 28.9 PG (27.0-31.0) Mean Corpuscular Hemoglobin Concent 32.4 G/DL (32.0-36.0) Red Cell Distribution Width 12.8 % (11.6-14.8) Platelet Count 144 K/UL (150-450) L Mean Platelet Volume 9.3 FL (6.5-10.1) Neutrophils (%) (Auto) 60.8 % (45.0-75.0) Lymphocytes (%) (Auto) 28.5 % (20.0-45.0) Monocytes (%) (Auto) 9.3 % (1.0-10.0) Eosinophils (%) (Auto) 0.9 % (0.0-3.0) Basophils (%) (Auto) 0.6 % (0.0-2.0) Sodium Level 142 mEQ/L (135-145) Potassium Level 4.5 mEQ/L (3.4-4.9) Chloride Level 105 mEQ/L (98-107) Carbon Dioxide Level 28 mEQ/L (20-30) Anion Gap 9 (5-15) Blood Urea Nitrogen 17 mg/dL (7-23) Creatinine 1.4 mg/dL (0.7-1.2) H Estimat Glomerular Filtration Rate mL/min (>60) Glucose Level 111 mg/dL (74-106) H Calcium Level 9.2 mg/dL (8.6-10.2) Troponin I < 0.30 ng/mL (<=0.30) Pro-B-Type Natriuretic Peptide 866 pg/mL (0-450) H Intake and Output 02/11/17 02/12/17 19:00 07:00 Intake Total 240 ml Balance 240 ml Intake Oral 240 ml # Voids 2 Objective General Appearance: WD/WN, no apparent distress, alert EENT: PERRL/EOMI, normal ENT inspection, TMs normal Neck: non-tender, normal alignment, supple, normal inspection Cardiovascular: normal peripheral pulses, normal rate, regular rhythm, no gallop/murmur, no JVD Respiratory/Chest: chest wall non-tender, no respiratory distress, no accessory muscle use Abdomen: normal bowel sounds, non tender, soft, no organomegaly, no mass Extremities: normal range of motion, non-tender Neurologic: documentum consultant II-XII grossly normal Skin: normal pigmentation, warm/dry Assessment/Plan Problem List: (1) Vertigo (2) Near syncope (3) CHF (congestive heart failure) (4) Sick sinus syndrome Assessment & Plan: S/P pacemaker (5) Atrial fibrillation Assessment & Plan: Currently sinus. See cardiology note. (6) HTN (hypertension) (7) CAD (coronary artery disease) (8) Pacemaker Assessment & Plan: S/P interrogation. Will need new generator-see cardiology note. Status: stable Assessment/Plan D/C home today DARYN RAY Feb 11, 2017 14:26
[2017-02-11] MEDS ORDERED: Warfarin Sodium 3mg ORAL SCH (17:00)
--- NOTE | 2017-02-12 16:03 | Cardiology Report ---
APPROVED REPORT EXAM: Two-dimensional and M-mode echocardiogram with Doppler and color Doppler. M-Mode DIMENSIONS IVSd1.5 (0.7-1.1cm)Left Atrium (MM)3.5 (1.6-4.0cm) LVDd4.5 (3.5-5.6cm)Aortic Root2.7 (2.0-3.7cm) PWd2.1 (0.7-1.1cm)Aortic Cusp Exc.1.7 (1.5-2.0cm) LVDs2.7 (2.5-4.0cm) PWs2.7 cm Left Ventricular Function Normal left ventricular chamber size, systolic function and wall motion. Left ventricular ejection fraction estimated to be 65%. No evidence of pericardial effusion All other cardiac chamber sizes are within normal limits. No Left atrial enlargement. Mild Focal aortic valve sclerosis with adequate cusp excursion. Thickened mitral valve leaflets with normal excursion. Pulmonic valve not well visualized. Normal tricuspid valve structure. IVC within normal size collapsing with respiration suggestive of increased RA pressure 10mmHg. A color flow and spectral Doppler study was performed and revealed: Mild, aortic insufficiency. Mild mitral regurgitation. Mitral inflow indicate grade II left ventricular diastolic function. Mild, tricuspid regurgitation. Tricuspid systolic velocities suggests peak right ventricular systolic pressure of 39mmHg consistent with mild pulmonary hypertension. .
--- NOTE | 2017-02-13 08:13 | Discharge Summary ---
Discharge Summary Hospital Course Date of Admission Feb 08, 2017 at 17:35 Date of Discharge Feb 11, 2017 at 14:40 Admitting Diagnosis DIZZINESS HPI Maximo Vuong is a 81 year old male who was admitted on Feb 08, 2017 at 17:35 for Dizziness Hospital Course dc summary #[id number] Discharge Medications Continued Medications: Atorvastatin (Lipitor) 80 Mg Tablet 80 MG ORAL BEDTIME, #30 TAB 0 Refills Carvedilol* (Carvedilol*) 3.125 Mg Tablet 3.125 MG ORAL EVERY 12 HOURS, TAB Naproxen (Naproxen) 250 Mg Tablet 250 MG PO BID, TAB Novelty-3 Fatty Acids/Fish Oil (Novelty 3 1,000 Mg Softgel) 1 Each Capsule 1 EACH PO, CAP Warfarin Sod* (Coumadin*) 2 Mg Tablet 2 MG ORAL DAILY, TAB Discharge Condition Upon Discharge: stable Discharge Disposition Patient was discharged to Home (01) Discharge Diagnoses: Discharge Instructions Discharge Instructions Special Instructions I have been assigned to complete a D/C Summary on this account. I was not involved in the patient management Betina Phillip NP (Vanchtein) Feb 13, 2017 08:13
--- NOTE | 2017-02-14 09:16 | Discharge Summary 2 SIG ---
DATE OF ADMISSION: 02/08/2017 DATE OF DISCHARGE: 02/11/2017 Reason For Admission: An 81-year-old male with past medical history significant for coronary artery disease status post percutaneous transluminal coronary angioplasty with stent, sick sinus syndrome, status post pacemaker, hypertension, dyslipidemia, congestive heart failure presented to the emergency department with complaining of dizziness and lightheadedness. Dizziness occurred when he was walking and relieved with rest. He denied headache, blurry vision, nausea, vomiting, no palpitation or shortness of breath. His pacemaker initially was placed in 2004 and then generator was replaced in 2010. In emergency department, the patient's laboratory workup was unremarkable, proBNP was 2300, BUN 16, creatinine 1.5. Troponin was negative. Urinalysis, no evidence of urinary tract infection. EKG shows ventricular pacing. No acute ischemic changes. Ventricular rate 65. No leukocytosis, stable hemoglobin and hematocrit. The patient was admitted for further management to telemetry floor. ADMITTING DIAGNOSES: 1. Dizziness of unknown origin. 2. Presyncope. 3. Paroxysmal atrial fibrillation. 4. Dyslipidemia. 5. Coronary artery disease status post stent. 6. Chronic congestive heart failure. 7. Hypertension. 8. Sick sinus syndrome, status post pacemaker. 9. Mild obesity. 10. Presumed obstructive sleep apnea. Hospital Stay: The patient was admitted to telemetry floor. Cardiology and Pulmonology consults were requested. Home medications were resumed. Anticoagulation for paroxysmal atrial fibrillation with Coumadin was resumed. Pacemaker was interrogated and reprogrammed to dual-chamber. The patient specifically indicated since that he felt significantly better once pacemaker was reprogrammed. Per pantograph machine set up operator, it was likely that a component of dizziness was related to atrial fibrillation and loss of atrial kick .Per pantograph machine set up operator, the patient needs to have his pacemaker generator replaced to achieve ROSA., which will be done as outpatient per patient pantograph machine set up operator . The patient was off and on between atrial fibrillation and sinus rhythm. Rate was controlled with low dose of beta-wilton, anticoagulation provided with Coumadin , INR subtherapeutic. Patietn need outpatient follow up for Coumadin dosing to achieve therapeutic INR. Statin was continued. Lipid panel was within normal limits. Blood pressure was stable with beta-wilton. Pulse oximetry was stable on room air. The patient was working with physical therapists. The patient was stable for discharge home. DISCHARGE DIAGNOSES: 1. Presyncope. 2. Paroxysmal atrial fibrillation. 3. Dyslipidemia. 4. Coronary artery disease with history of PCI 5. Sick sinus syndrome status post pacemaker. 6. Chronic congestive heart failure. 7. Hypertension. 8. Mild obesity. 9. Presumed obstructive sleep apnea. DISCHARGE MEDICATIONS: See medication reconciliation list. Discharge Instructions: The patient to follow up with primary medical doctor. The patient to follow up with Cardiology for generator replacement as well as the INR checks to achieve therapeutic INR range between 2 and 3. Recommended sleep study as outpatient for presumptive obstructive sleep apnea. Adam Acosta M.D. I have been assigned to dictate discharge summary on this account and I was not involved in the patient's management. Betina PerezNyu Langone Tisch HospitalNicole N.PJing DR: OLY JOB#: [id number] CC: GERMAIN
== END 2017-02-11 14:40 | disposition home or self-care (01) | DRG 308 ==
LOC: EMR 16:03 → 2E 17:35 → EDBEDREQ 20:44 → EDBEDREQSVC 21:08
DX: I48.0 Paroxysmal atrial fibrillation (principal); G93.40 Encephalopathy, unspecified; I50.9 Heart failure, unspecified; I49.5 Sick sinus syndrome; I25.10 Atherosclerotic heart disease of native coronary artery without angina pectoris; Z95.0 Presence of cardiac pacemaker; Z95.5 Presence of coronary angioplasty implant and graft; Z79.01 Long term (current) use of anticoagulants; R55 Syncope and collapse; E78.5 Hyperlipidemia, unspecified; G47.33 Obstructive sleep apnea (adult) (pediatric); E66.9 Obesity, unspecified; Z87.891 Personal history of nicotine dependence
CPT/HCPCS: 36415; 70450; 71010; 76775; 80048; 80053; 80061; 81001; 81003; 82550; 82553; 83880; 84133; 84300; 84443; 84484; 84550; 85025; 85610; 85730; 89050; 93005; 93306; 93880; 99285

== ENCOUNTER 2018-07-10 05:21 | Emergency (ER) | payer MEDICARE ==
[~2018-07-10] VITALS: Ht 170.2 cm; Wt 82.6 kg
[~2018-07-10 05:21] MED LIST: CARVEDILOL3.125 MG ORAL; COUMADIN2 MG ORAL; LIPITOR80 MG ORAL; NAPROXEN250 M1 PO; OMEGA 3 1,0001 EACH PO
[2018-07-10] MEDS ORDERED: ELIQUIS5 MG PO (05:36)
[2018-07-10] MEDS ORDERED: DULCOLAX10 MG RC (05:36)
[2018-07-10] MEDS ORDERED: PEPCID AC20 M2 PO (05:36)
[2018-07-10] MEDS ORDERED: AMIODARONE HCL400 M1 ORAL (05:36)
[2018-07-10 05:37] VITALS: BP 113/55
--- NOTE | 2018-07-10 05:44 | NUR ---
ED Nurse Note: pt walked in due to constipation since and was given laxative. pt stated he just pass a small amount of bm. pt presents with vital signs within normal limts. abdomen does not appear distended. pt states his diahrea is [place] color. skin does not tent. pt is able to ambulate.
--- NOTE | 2018-07-10 05:53 | Emergency Room Report ---
History of Present Illness General Chief Complaint: Constipation Source: Patient Present Illness HPI Is an 83-year-old male with a history of hypertension and CAD. He present with chief complaint of constipation. He's been constipated for the last 3-4 days. No bowel movement. He try [id number] medication with minimal relief. He try enema and that helped a little bit. Denies any fever or chills. Has abdominal cramps and pressure to have bowel movement but can't. Denies any fever chills. Denies any new medication. Denies any recent opiates. Allergies: Coded Allergies: No Known Allergies (Unverified , 02/08/17) Patient History Past Medical History: see triage record, old chart reviewed, HTN, CAD Past Surgical History: other Pertinent Family History: none Social History: Denies: smoking Immunizations: other Reviewed Nursing Documentation: PMH: Agreed; PSxH: Agreed Nursing Documentation-PMH Hx Cardiac Problems: Yes - Angioplasty, "fluid in lungs" Hx Hypertension: Yes Hx Pacemaker: Yes Hx Cancer: No Hx Gastrointestinal Problems: No Hx Neurological Problems: No Review of Systems Eye: Denies: eye pain, blurred vision ENT: Denies: ear pain, nose congestion, throat swelling Respiratory: Denies: cough, shortness of breath Cardiovascular: Denies: chest pain, palpitations Gastrointestinal: Reports: abdominal pain, constipation; Denies: diarrhea, nausea, vomiting Musculoskeletal: Denies: back pain, joint pain Skin: Denies: rash Neurological: Denies: headache, numbness Endocrine: Denies: increased thirst, increased urine Hematologic/Lymphatic: Denies: easy bruising All Other Systems: negative except mentioned in HPI Physical Exam Vital Signs Date Time Temp Pulse Resp B/P (MAP) Pulse Ox O2 Delivery O2 Flow Rate FiO2 07/10/18 05:28 98.1 68 16 113/55 93 Room Air vitals normal Sp02 EP Interpretation: reviewed, normal General Appearance: well appearing, no apparent distress, alert Head: normocephalic, atraumatic Eyes: bilateral eye PERRL, bilateral eye EOMI ENT: hearing grossly normal, normal pharynx Neck: full range of motion, supple, no meningismus Respiratory: chest non-tender, lungs clear, normal breath sounds Cardiovascular #1: regular rate, rhythm, no murmur Gastrointestinal: normal bowel sounds, non tender, no mass, no organomegaly, no bruit, non-distended Rectal: hemorrhoids - External, other - Large amount of stool in the rectal vault Musculoskeletal: back normal, gait/station normal, normal range of motion Psychiatric: mood/affect normal Skin: warm/dry Medical Decision Making Diagnostic Impression: Primary Impression: Constipation Qualified Codes: K59.00 - Constipation, unspecified ER Course Patient with constipation. No evidence of any obstruction. No evidence of any acute abdomen. He had a bowel movement after disimpaction and enema here. He felt better. We'll discharge home on medication. Last Vital Signs Date Time Temp Pulse Resp B/P (MAP) Pulse Ox O2 Delivery O2 Flow Rate FiO2 07/10/18 05:37 98.1 69 16 113/55 93 Room Air Status: improved Disposition: HOME, SELF-CARE Condition: Stable Scripts Lactulose (LACTULOSE*) 20 Gm/30 Ml Solution 30 ML ORAL DAILY, #240 ML 0 Refills Prov: Kike Mckinney MD 07/10/18 Patient Instructions: Constipation, Adult Additional Instructions: May use enema as needed. Follow-up with your doctor in 2-3 days of not better. Return if symptom worsen. Kike Mckinney MD Jul 10, 2018 05:53
[2018-07-10] MEDS ORDERED: Fleet's Enema 133ml RECTAL ONE (06:15)
[2018-07-10 06:25] VITALS: BP 115/56
[2018-07-10 06:26] VITALS: BP 115/56
[2018-07-10] MEDS ORDERED: LACTULOSE20 GM/301 ORAL (06:26)
--- NOTE | 2018-07-10 06:34 | NUR ---
ED Nurse Note: PT is DC per ERMD orders. pt vital signs, status and condition is steady and has been reported to ERMD prior to Dc and are stable. pt is alert and oriented times 4. pt is able to ambulate. pt has understood and is able to teach back Dc info. pt ID band removed. pt has left with all belongings. pt is stable for Dc as per ERMD order. pt has left with all belonging, DC notes and prescrptions.
== END 2018-07-10 06:40 | disposition home or self-care (01) ==
LOC: EMR 06:40
DX: K59.00 Constipation, unspecified (principal); I10 Essential (primary) hypertension; I25.10 Atherosclerotic heart disease of native coronary artery without angina pectoris; Z95.0 Presence of cardiac pacemaker
CPT/HCPCS: 99282

== ENCOUNTER 2018-07-12 06:21 | Inpatient (IN) | payer MEDICARE ==
[~2018-07-12] VITALS: Ht 172.7 cm; Wt 80.8 kg
[~2018-07-12 06:21] MED LIST changes: +AMIODARONE HCL400 M1 ORAL; +DULCOLAX10 MG RC; +ELIQUIS5 MG PO; +LACTULOSE20 GM/301 ORAL; +PEPCID AC20 M2 PO
[2018-07-12 06:30] VITALS: BP 140/56
--- NOTE | 2018-07-12 06:30 | NUR ---
ED Nurse Note: Patient walk in c/o diarrhea for 2 days. Patient was seen in [facility] ED for constipation 2 days ago, prescribed medication. Patient now reports diarrhea and weakness. ermd on bedside. will continue to monitor.
[2018-07-12 07:17] LABS: APPEARANCE,URINE CLEAR; BILIRUBIN, URINE NEGATIVE (NEGATIVE); GLUCOSE, URINE (UA) NEGATIVE (NEGATIVE); KETONES,URINE NEGATIVE (NEGATIVE); LEUKOCYTE ESTERASE ,URINE NEGATIVE (NEGATIVE); NITRITE,URINE NEGATIVE (NEGATIVE); PH,URINE 5 (4.5-8.0); PROTEIN,URINE 2+ (NEGATIVE); UROBILINOGEN,URINE 4 MG/DL (0.0-1.0)
[2018-07-12 07:29] LABS: ANION GAP 11 mmol/L (5-15); BLOOD UREA NITROGEN 32 mg/dL (7-18); CALCIUM 8.6 MG/DL (8.5-10.1); CARBON DIOXIDE 26 MMOL/L (21-32); CHLORIDE 101 MMOL/L (98-107); CREATININE 2.5 MG/DL (0.55-1.30); POTASSIUM 3.9 MMOL/L (3.5-5.1); SODIUM 138 MMOL/L (136-145)
[2018-07-12 07:32] LABS: COLOR,URINE YELLOW
[2018-07-12 07:33] LABS: ALANINE AMINOTRANSFERASE 25 U/L (12-78); ALBUMIN 3.5 G/DL (3.4-5.0); ALBUMIN/GLOBULIN RATIO 0.7 (1.0-2.7); ALKALINE PHOSPHATASE 67 U/L (46-116); ASPARTATE AMINO TRANSFERASE 54 U/L (15-37); BILIRUBIN,TOTAL 0.8 MG/DL (0.2-1.0)
[2018-07-12 07:36] VITALS: BP 151/54
--- NOTE | 2018-07-12 07:36 | NUR ---
ED Nurse Note: REPORT RECEIVED FROM ESTELA WOOTEN.
[2018-07-12 07:54] LABS: HEMATOCRIT 38.9 % (42.0-52.0); HEMOGLOBIN 12.8 G/DL (14.2-18.0); MEAN CORPUSCULAR VOLUME 89 FL (80-99); PLATELET COUNT 83 K/UL (150-450); RED BLOOD COUNT 4.36 M/UL (4.70-6.10); RED CELL DISTRIBUTION WIDTH 13.5 % (11.6-14.8); WHITE BLOOD COUNT 6.7 K/UL (4.8-10.8)
[2018-07-12] MEDS ORDERED: Oseltamivir 75mg cap ORAL ONE (08:15)
--- NOTE | 2018-07-12 08:30 | Emergency Room Report ---
History of Present Illness General Chief Complaint: Diarrhea Source: Patient, Family Member Present Illness HPI 83-year-old male presents to ED for evaluation. Complaining of feeling weak with diarrhea 2 days. Notes multiple loose watery stools. Denies any recent antibiotic use. Denies any recent travel. Was seen here 2 days ago for constipation and was prescribed stool softeners. at bedside also notes patient having runny nose, congestion. Denies fevers or chills. States he did not receive flu shot this year. No other aggravating relieving factors. Denies any other associated symptoms Allergies: Coded Allergies: No Known Allergies (Unverified , 02/08/17) Patient History Past Medical History: HTN Past Surgical History: pacemaker Pertinent Family History: none Social History: Denies: smoking, alcohol use, drug use Immunizations: UTD Reviewed Nursing Documentation: PMH: Agreed; PSxH: Agreed Nursing Documentation-PMH Hx Cardiac Problems: Yes - Angioplasty, "fluid in lungs" Hx Hypertension: Yes Hx Pacemaker: Yes Hx Cancer: No Hx Gastrointestinal Problems: No Hx Neurological Problems: No Review of Systems All Other Systems: negative except mentioned in HPI Physical Exam Vital Signs Date Time Temp Pulse Resp B/P (MAP) Pulse Ox O2 Delivery O2 Flow Rate FiO2 07/12/18 06:25 97.9 74 16 140/56 92 Room Air Sp02 EP Interpretation: reviewed, normal General Appearance: no apparent distress, alert, GCS 15, non-toxic Head: normocephalic, atraumatic Eyes: bilateral eye normal inspection, bilateral eye PERRL ENT: hearing grossly normal, normal pharynx, no angioedema, normal voice Neck: full range of motion, supple/symm/no masses Respiratory: chest non-tender, lungs clear, normal breath sounds, speaking full sentences Cardiovascular #1: regular rate, rhythm, no edema Cardiovascular #2: 2+ carotid (R), 2+ carotid (L), 2+ radial (R), 2+ radial (L) , 2+ dorsalis pedis (R), 2+ dorsalis pedis (L) Gastrointestinal: normal bowel sounds, non tender, soft, non-distended, no guarding, no rebound Rectal: deferred Genitourinary: normal inspection, no CVA tenderness Musculoskeletal: back normal, gait/station normal, normal range of motion, non- tender Neurologic: alert, oriented x3, responsive, motor strength/tone normal, sensory intact, speech normal Psychiatric: judgement/insight normal, memory normal, mood/affect normal, no suicidal/homicidal ideation Reflexes: 3+ bicep (R), 3+ bicep (L), 3+ tricep (R), 3+ tricep (L), 3+ knee (R) , 3+ knee (L) Skin: normal color, no rash, warm/dry, well hydrated Lymphatic: no adenopathy Medical Decision Making Diagnostic Impression: Primary Impression: Diarrhea Qualified Codes: A09 - Infectious gastroenteritis and colitis, unspecified Additional Impressions: Influenza A Renal insufficiency ER Course Hospital Course 83-year-old male presents ED with diarrhea, cough and congestion, weakness Clinical course Differentialgastroenteritis, dehydration, sepsis, influenza Patient placed on stretcher. After initial history and physical I ordered labs , IV fluids, chest x-ray Labs - no leukocytosis noted, Hb/Hct stable. BUN/Cr elevated, influenza A+ CXR - some atelectasis, effusion given levaquin. Given Tamiflu here. Given IV fluids. Discussed findings with patient. Patient will require inpatient admission patient will be admitted to Dr. Ferrari I feel this is a highly complex case requiring extensive working including EKG/ Rhythm strip, Xray/CT/US, Blood/urine lab work, repeat exams while in ED, and administration of strong opiates/narcotics for pain control, admission to hospital or close patient follow up. Diagnosis - diarrhea, influenza A, renal insufficiency Patient admitted to hospital in serious condition Labs Test 07/12/18 06:53 07/12/18 07:07 White Blood Count 6.7 K/UL (4.8-10.8) Red Blood Count 4.36 M/UL (4.70-6.10) Hemoglobin 12.8 G/DL (14.2-18.0) Hematocrit 38.9 % (42.0-52.0) Mean Corpuscular Volume 89 FL (80-99) Mean Corpuscular Hemoglobin 29.4 PG (27.0-31.0) Mean Corpuscular Hemoglobin Concent 32.9 G/DL (32.0-36.0) Red Cell Distribution Width 13.5 % (11.6-14.8) Platelet Count 83 K/UL (150-450) Mean Platelet Volume 10.2 FL (6.5-10.1) Neutrophils (%) (Auto) % (45.0-75.0) Lymphocytes (%) (Auto) % (20.0-45.0) Monocytes (%) (Auto) % (1.0-10.0) Eosinophils (%) (Auto) % (0.0-3.0) Basophils (%) (Auto) % (0.0-2.0) Urine Color Yellow Urine Appearance Clear Urine pH 5 (4.5-8.0) Urine Specific [place] 1.015 (1.005-1.035) Urine Protein 2+ (NEGATIVE) Urine Glucose (UA) Negative (NEGATIVE) Urine Ketones Negative (NEGATIVE) Urine Blood 3+ (NEGATIVE) Urine Nitrite Negative (NEGATIVE) Urine Bilirubin Negative (NEGATIVE) Urine Urobilinogen 4 MG/DL (0.0-1.0) Urine Leukocyte Esterase Negative (NEGATIVE) Urine RBC 2-4 /HPF (0 - 0) Urine WBC 2-4 /HPF (0 - 0) Urine Squamous Epithelial Cells Few /LPF (NONE/OCC) Urine Bacteria Few /HPF (NONE) Sodium Level 138 MMOL/L (136-145) Potassium Level 3.9 MMOL/L (3.5-5.1) Chloride Level 101 MMOL/L (98-107) Carbon Dioxide Level 26 MMOL/L (21-32) Anion Gap 11 mmol/L (5-15) Blood Urea Nitrogen 32 mg/dL (7-18) Creatinine 2.5 MG/DL (0.55-1.30) Estimat Glomerular Filtration Rate mL/min (>60) Glucose Level 94 MG/DL (74-106) Calcium Level 8.6 MG/DL (8.5-10.1) Total Bilirubin 0.8 MG/DL (0.2-1.0) Aspartate Amino Transf (AST/SGOT) 54 U/L (15-37) Alanine Aminotransferase (ALT/SGPT) 25 U/L (12-78) Alkaline Phosphatase 67 U/L (46-116) Total Protein 8.2 G/DL (6.4-8.2) Albumin 3.5 G/DL (3.4-5.0) Globulin 4.7 g/dL Albumin/Globulin Ratio 0.7 (1.0-2.7) Lactic Acid Level 1.80 mmol/L (0.4-2.0) Chest X-Ray Diagnostic Results Chest X-Ray Diagnostic Results : Chest X-Ray Ordered: Yes # of Views/Limited/Complete: 1 View Indication: Other EP Interpretation: Yes Interpretation: no pneumothorax, other - atelectasis RLL lung, effusion LLL Impression: Other - atelectasis Electronically Signed by: Electronically signed by Phillip Myles MD Last Vital Signs Date Time Temp Pulse Resp B/P (MAP) Pulse Ox O2 Delivery O2 Flow Rate FiO2 07/12/18 07:36 98.1 69 21 151/54 98 Room Air Status: improved Disposition: ADMITTED INPATIENT Condition: Serious Referrals: NON PHYSICIAN (PCP) Phillip Myles MD Jul 12, 2018 08:30
--- NOTE | 2018-07-12 08:30 | NUR ---
ED Nurse Note: XRAY AT BEDSIDE
--- NOTE | 2018-07-12 08:32 | NUR ---
ED Nurse Note: [facility] CALLED FOR REPORT. PER [facility], RN CURRENTLY WITH A PT AND WILL CALL BACK IN 10 MINUTES.
--- NOTE | 2018-07-12 08:52 | Diagnostic Imaging Report ---
Indication: Cough Technique: One view of the chest Comparison: 02/08/2017 Findings: Less optimal inspiration, with some crowding of bronchovascular markings in the right hilar region.. Linear scarring is again demonstrated in the left midlung. No definite infiltrates, effusions, or congestion. Left chest bifocal pacemaker is again demonstrated. Degenerative proliferative changes of both shoulders again noted Impression: No acute process. Incidental findings as noted
--- NOTE | 2018-07-12 09:22 | NUR ---
ED Nurse Note: [facility] CALLED FOR PT REPORT. REPORT GIVEN TO ESTELA QUINTANILLA. PT TRANSFERRED TO [facility] VIA GURNEY ON IV FLUIDS AND IV ABX ALONG WITH ALL BELONGINGS ACCOMPANIED BY EMT. VSS.
[2018-07-12 10:23] VITALS: BP 124/68
--- NOTE | 2018-07-12 11:39 | NUR ---
NURSE NOTES: Left message for MD Ferrari for admission orders.
[2018-07-12 12:00] VITALS: BP 140/62
--- NOTE | 2018-07-12 13:51 | NUR ---
NURSE NOTES: Left mesage for MD Ferrari again for admission orders.
[2018-07-12] MEDS ORDERED: Naproxen 500mg tab ORAL PRN (14:15)
[2018-07-12] MEDS ORDERED: Albuterol/Ipratropium 3ml neb HHN SCH (15:00)
[2018-07-12 16:00] VITALS: BP 162/68
[2018-07-12] MEDS: cefTRIAXone 1 GM in D5W 55 ML IVPB SCH (16:20)
[2018-07-12] MEDS: Eliquis 2.5mg tablet ORAL SCH (17:57)
[2018-07-12] MEDS ORDERED: Eliquis 2.5mg tablet ORAL SCH (18:00)
--- NOTE | 2018-07-12 19:52 | NUR ---
HAND-OFF: Report given to STEPHEN Stevens.
--- NOTE | 2018-07-12 19:54 | NUR ---
NURSE NOTES:Patent received ace QUINTANILLA R.N. patient A/A/OX4 . RAC G#20 NS @ 75CC/HR Infusing well.@100cc /hr.patient scds in placed .patient droplets isolation precaution maintained.call light within reach . bed in low position at all times will continue to monitor.
[2018-07-12 20:00] VITALS: BP 145/60
--- NOTE | 2018-07-12 22:15 | History and Physical Report ---
DATE OF ADMISSION: 07/12/2018 HISTORY OF PRESENT ILLNESS: The patient is an 83-year-old male who came to the emergency room for having short of breath, cough, two days prior to admission. The patient claims that he just came from [place] and has been sick for the last two days and feeling generalized weakness, tired, fatigue, cough with sputum production. Has low-grade fever. PAST MEDICAL HISTORY: Significant for coronary artery disease, hypertension, and status post stent placement. MEDICATIONS: He is taking amiodarone, apixaban, Lipitor, Pepcid, and naproxen. ALLERGIES: NKA. FAMILY HISTORY: Noncontributory. SOCIAL HISTORY: Lives at home with his . Denies any smoking or drinking. Denies any illegal drugs. REVIEW OF SYSTEMS: Generalized weakness, tired, fatigue, cough, and low-grade fever. PHYSICAL EXAMINATION: VITAL SIGNS: Blood pressure is 124/68, pulse 86, respirations 18, and temperature is 98.7. SKIN: Good skin turgor. HEENT: NAD. CHEST: Bilateral few crackles and wheezing. CARDIOVASCULAR: Regular rhythm. Tachycardia. ABDOMEN: Soft, positive bowel sounds. EXTREMITIES: CCE. NEUROLOGICAL: No focal deficit. GENITOURINARY: Deferred. LABORATORY EXAMINATION: White count 6.7, hemoglobin 13, hematocrit 39, and platelets are 83,000. Chemistry panel, sodium 138, potassium 3.9, BUN 32, creatinine 2.5. Glucose is 94. Lactic acid 1.80. Chest x-ray was showing no acute process. ASSESSMENT: 1. Influenza, pneumonia. 2. Coronary artery disease. 3. Hypertension. 4. Thrombocytopenia. 5. Hyperlipidemia. 6. Acute versus chronic renal failure. PLAN: We will add Tamiflu, Rocephin 1 g IV fluid, consider ID consult. Isolation, contact isolation. Continue home medications. Continue amiodarone and his blood pressure is also high. He will add Coreg 6.25 mg twice a day. Continue bronchodilator treatments. Consider ID and Pulmonary consult. Discussed with the charge nurse as well as discussed with PCP, Dr. Hayden. Consider ID consult, Dr. Zambrano, pulmonary consult with Dr. Pedro Curiel as well as consider Dr. Gill for Nephrology consult. Sanjeev Arthur Ferrari DR: MAGY JOB#: [id number] CC:
[2018-07-12] MEDS: Carvedilol 6.25mg Tab ORAL SCH (22:17)
[2018-07-12] MEDS: Amiodarone 200mg tab ORAL SCH (22:18)
[2018-07-12] MEDS: Atorvastatin 80mg tab ORAL SCH (22:18)
[2018-07-13] VITALS: BP 142/71
[2018-07-13 04:00] VITALS: BP 134/77
--- NOTE | 2018-07-13 07:23 | NUR ---
HAND-OFF: Report given to Rhea Patient in stable condition.
[2018-07-13 08:00] VITALS: BP 134/80
--- NOTE | 2018-07-13 08:00 | NUR ---
NURSE NOTES: Report received from outgoing RN, rounds made. Patient resting in bed, semi-fowlers position on O2 2LNC, no respiratory distress/cough noted, encouraged CDB exercises and to expectorate sputum. Droplet precautions. IVF infusing to RAC, site asymptomatic. Denies pain. Call light in reach, bed in lowest position. Will continue to monitor.
[2018-07-13] MEDS ORDERED: Lactulose 20gm/30ml UDC ORAL SCH (09:00)
[2018-07-13] MEDS: Carvedilol 6.25mg Tab ORAL SCH ×2 (09:41→20:20)
[2018-07-13] MEDS: Amiodarone 200mg tab ORAL SCH ×2 (09:41→20:20)
[2018-07-13] MEDS: Eliquis 2.5mg tablet ORAL SCH ×2 (09:42→17:41)
[2018-07-13 11:21] LABS: HEMATOCRIT 36.8 % (42.0-52.0); MEAN CORPUSCULAR VOLUME 90 FL (80-99); PLATELET COUNT 82 K/UL (150-450); RED BLOOD COUNT 4.09 M/UL (4.70-6.10); RED CELL DISTRIBUTION WIDTH 13.7 % (11.6-14.8); WHITE BLOOD COUNT 4.9 K/UL (4.8-10.8)
[2018-07-13 11:59] LABS: ANION GAP 6 mmol/L (5-15); BLOOD UREA NITROGEN 22 mg/dL (7-18); CALCIUM 8.4 MG/DL (8.5-10.1); CARBON DIOXIDE 27 MMOL/L (21-32); CHLORIDE 108 MMOL/L (98-107); CREATININE 1.8 MG/DL (0.55-1.30); POTASSIUM 4.2 MMOL/L (3.5-5.1); SODIUM 141 MMOL/L (136-145)
[2018-07-13 12:00] VITALS: BP 143/58
--- NOTE | 2018-07-13 12:02 | Consultation ---
Consult Note Consult Note asked to eval for renal failure- 83-year-old male presents to ED for evaluation. Complaining of feeling weak with diarrhea 2 days. Notes multiple loose watery stools. Denies any recent antibiotic use. Denies any recent travel. Was seen here 2 days ago for constipation and was prescribed stool softeners. at bedside also notes patient having runny nose, congestion. Denies fevers or chills. States he did not receive flu shot this year. No other aggravating relieving factors. Denies any other associated symptoms No Known Allergies (Unverified , 02/08/17) Past Medical History: HTN Past Surgical History: pacemaker Pertinent Family History: none Social History: Denies: smoking, alcohol use, drug use Immunizations: UTD Reviewed Nursing Documentation: PMH: Agreed; PSxH: Agreed Hx Cardiac Problems: Yes - Angioplasty, "fluid in lungs" Hx Hypertension: Yes Hx Pacemaker: Yes interviewed examined data reviewed Assessment/Plan renal failure: Likely acute on chronic Dehydration Diarrhea Influenza A Pacemaker Hydrate Urine studies Monitor renal parameters Avoid Nephrotoxics flomax 2D echo Sunil Gill MD Jul 13, 2018 12:02
[2018-07-13 12:04] LABS: ALANINE AMINOTRANSFERASE 29 U/L (12-78); ALBUMIN 2.8 G/DL (3.4-5.0); ALBUMIN/GLOBULIN RATIO 0.7 (1.0-2.7); ALKALINE PHOSPHATASE 57 U/L (46-116); ASPARTATE AMINO TRANSFERASE 52 U/L (15-37); BILIRUBIN,TOTAL 0.6 MG/DL (0.2-1.0); PHOSPHORUS 2.6 MG/DL (2.5-4.9)
[2018-07-13 12:10] LABS: CHOLESTEROL 116 MG/DL (< 200); CREATINE KINASE 259 U/L (26-308); HDL CHOLESTEROL 37 MG/DL (40-60); TRIGLYCERIDES 87 MG/DL (30-150)
[2018-07-13] MEDS ORDERED: Tamsulosin 0.4mg cap ORAL SCH (13:45)
--- NOTE | 2018-07-13 13:52 | NUR ---
CASE MANAGEMENT: INITIAL REVIEW 83 YO M PRESENTED TO OUR ED FROM HOME CC: DIARRHEA PMHx: HTN. PACEMAKER. SI:DEHYDRATION. INFLUENZA POSITIVE. T 97.9 HR 74 RR 16 B/P 140/56 STS 92% ONRA BUN 32 CR 2.5 AST 54 IS: NS BOLUS X1 PATIENT ADMITTED TO MED/SURG 07/12/2018 @ 0757 DCP: PATIENT TO BE DISCHARGED TO HOME ONCE MEDICALLY CLEARED. PLAN OF CARE: 2D ECHO SODIUM RANDOM URINE
[2018-07-13 16:00] VITALS: BP 174/72
[2018-07-13] MEDS: Tamsulosin 0.4mg cap ORAL SCH ×2 (16:21→20:20)
--- NOTE | 2018-07-13 16:32 | NUR ---
CARDIOLOGY PACS is down. 2D Echo preliminary report is as follows, Normal left ventricular chamber size. Global left ventricular hypokinesis. Left ventricular ejection fraction estimated to be 40 %. Mild left ventricular hypertrophy. Anterior Echo-free space, may be due to pericardial fat or effusion. All other cardiac chamber sizes are within normal limits. Mild focal aortic valve sclerosis with adequate cusp excursion. Mildly thickened mitral valve leaflets with normal excursion. Mild mitral annulus and aortic root calcification. Normal pulmonic valve structure. Normal tricuspid valve structure. IVC is normal in size with physiological collapse. A color flow and spectral Doppler study was performed and revealed: Mild to moderate aortic insufficiency. Moderate mitral regurgitation. Normal left ventricular diastolic function. Mild tricuspid regurgitation. Tricuspid systolic velocities suggests peak right ventricular systolic pressure of 85 mmHg, consistent with severe pulmonary hypertension. Mild pulmonic regurgitation present.
[2018-07-13] MEDS: cefTRIAXone 1 GM in D5W 55 ML IVPB SCH (16:37)
--- NOTE | 2018-07-13 16:45 | NUR ---
NURSE NOTES: Patient noted with elevated blood pressure 174/72 mmHg. Administered Catapres 0.1 mg at 1636, reassessed BP 139/62 mmHg. Patient with inspiratory/expiratory wheeze upon auscultation 94% on RA, RT notified for breathing treatment. Will continue to monitor.
--- NOTE | 2018-07-13 16:55 | NUR ---
NURSE NOTES: Spoke with Dr. Ferrari regarding new order for IVF from Dr. Monaco and that patient has had approximately 6 diarrheal stool, medication profile reviewed. Okay to start IVF as ordered by Dr. Monaco.
[2018-07-13] MEDS: Albuterol/Ipratropium 3ml neb HHN PRN (17:19)
[2018-07-13] MEDS: Docusate 100mg cap ORAL SCH (17:32)
--- NOTE | 2018-07-13 19:30 | NUR ---
HAND-OFF: Report given to Sahara PALMER.
[2018-07-13 20:00] VITALS: BP 164/70
--- NOTE | 2018-07-13 20:07 | NUR ---
NURSE NOTES: Received patient AOx4, able to verbalize needs, assisted to the bathroom, IV dressing reinforced. Pt denies pain. Bed on lowest position, brakes engaged, call light and belongings within reach. Droplet isolation noted.
[2018-07-13] MEDS: Atorvastatin 80mg tab ORAL SCH (20:19)
[2018-07-14] VITALS (7 sets, daily range): BP systolic 140–189; BP diastolic 63–98
[2018-07-14 06:32] LABS: HEMATOCRIT 35.5 % (42.0-52.0); HEMOGLOBIN 11.5 G/DL (14.2-18.0); MEAN CORPUSCULAR VOLUME 90 FL (80-99); PLATELET COUNT 83 K/UL (150-450); RED BLOOD COUNT 3.97 M/UL (4.70-6.10); RED CELL DISTRIBUTION WIDTH 13.7 % (11.6-14.8); WHITE BLOOD COUNT 5.6 K/UL (4.8-10.8)
[2018-07-14 07:13] LABS: ALANINE AMINOTRANSFERASE 29 U/L (12-78); ALBUMIN 2.9 G/DL (3.4-5.0); ALBUMIN/GLOBULIN RATIO 0.7 (1.0-2.7); ALKALINE PHOSPHATASE 58 U/L (46-116); ANION GAP 7 mmol/L (5-15); ASPARTATE AMINO TRANSFERASE 49 U/L (15-37); BILIRUBIN,TOTAL 0.5 MG/DL (0.2-1.0); BLOOD UREA NITROGEN 21 mg/dL (7-18); CALCIUM 8.5 MG/DL (8.5-10.1); CARBON DIOXIDE 24 MMOL/L (21-32); CHLORIDE 107 MMOL/L (98-107); CREATININE 1.7 MG/DL (0.55-1.30); PHOSPHORUS 2.5 MG/DL (2.5-4.9); POTASSIUM 4.1 MMOL/L (3.5-5.1); SODIUM 138 MMOL/L (136-145)
--- NOTE | 2018-07-14 07:15 | NUR ---
NURSE NOTES: Reinforced droplet precautions. No cough noted. Will continue to monitor.
--- NOTE | 2018-07-14 07:15 | NUR ---
NURSE NOTES: Report received from outgoing RN, rounds made. Patient resting in bed, semi-fowlers position. Alert, oriented x4 calm. Reinforced call light use and not to get up alone. BSC provided and instructed on. IVF infusing to RAC with difficulty, site asymptomatic. Assessed elbows, hips and knees, skin intact, no bruising or skin impairment noted due to recent fall last night. Denies diarrhea/NV. Call light in reach, bed in lowest position. Will continue to moniot
[2018-07-14 07:22] LABS: CREATINE KINASE 222 U/L (26-308)
--- NOTE | 2018-07-14 07:25 | NUR ---
HAND-OFF: Report given to ESTELA So. Endorsed troponin level to be followed up by AM nurse.
--- NOTE | 2018-07-14 08:30 | NUR ---
NURSE NOTES: Dr. Ferrari notified of Troponin level 0.105. Orders for Dr. Moreland to consult. see orders.
[2018-07-14] MEDS ORDERED: Lactulose 20gm/30ml UDC ORAL SCH (09:00)
[2018-07-14] MEDS: Docusate 100mg cap ORAL SCH ×3 (10:33→18:23)
[2018-07-14] MEDS: Carvedilol 6.25mg Tab ORAL SCH ×2 (10:33→20:13)
[2018-07-14] MEDS: Amiodarone 200mg tab ORAL SCH ×2 (10:33→20:12)
[2018-07-14] MEDS: Eliquis 2.5mg tablet ORAL SCH ×2 (10:34→18:23)
[2018-07-14] MEDS: Tamsulosin 0.4mg cap ORAL SCH ×2 (10:34→20:12)
--- NOTE | 2018-07-14 12:54 | Nephrology Progress Note ---
Assessment/Plan Problem List: (1) Renal insufficiency Assessment: acute on chronic (2) Dehydration (3) Pacemaker Assessment renal failure: Likely acute on chronic Dehydration Diarrhea Influenza A Pacemaker Plan Hydrate Urine studies Monitor renal parameters Avoid Nephrotoxics flomax 2D echo Subjective ROS Limited/Unobtainable: No Constitutional: Reports: malaise Objective Objective Last 24 Hour Vital Signs Date Time Temp Pulse Resp B/P (MAP) Pulse Ox O2 Delivery O2 Flow Rate FiO2 07/14/18 10:33 68 140/63 07/14/18 08:00 97.9 68 18 140/63 (88) 100 07/14/18 04:54 165/69 07/14/18 04:00 97.9 62 18 158/98 (118) 97 07/14/18 00:40 73 18 Room Air 21 07/14/18 00:00 98.3 64 18 165/69 (101) 96 07/13/18 21:00 Room Air 07/13/18 20:20 62 174/72 07/13/18 20:00 97.7 64 18 164/70 (101) 95 07/13/18 17:19 62 16 96 Room Air 21 07/13/18 16:36 174/72 07/13/18 16:00 97.7 65 18 174/72 (106) 94 Intake and Output 07/13/18 07/14/18 19:00 07:00 Intake Total 655 ml 825 ml Balance 655 ml 825 ml Intake Oral 480 ml IV Total 175 ml 825 ml # Voids 3 2 # Bowel Movements 6 Laboratory Tests 07/14/18 06:00: White Blood Count 5.6, Red Blood Count 3.97L, Hemoglobin 11.5L, Hematocrit 35.5L , Mean Corpuscular Volume 90, Mean Corpuscular Hemoglobin 29.1, Mean Corpuscular Hemoglobin Concent 32.4, Red Cell Distribution Width 13.7, Platelet Count 83L, Mean Platelet Volume 9.5, Neutrophils (%) (Auto) , Lymphocytes (%) ( Auto) , Monocytes (%) (Auto) , Eosinophils (%) (Auto) , Basophils (%) (Auto) , Differential Total Cells Counted 100, Neutrophils % (Manual) 67, Lymphocytes % ( Manual) 15L, Monocytes % (Manual) 16H, Eosinophils % (Manual) 2, Basophils % ( Manual) 0, Band Neutrophils 0, Platelet Estimate DecreasedL, Platelet Morphology Normal, Hypochromasia 1+, Sodium Level 138, Potassium Level 4.1, Chloride Level 107, Carbon Dioxide Level 24, Anion Gap 7, Blood Urea Nitrogen 21H, Creatinine 1.7H, Estimat Glomerular Filtration Rate , Glucose Level 112H, Uric Acid 3.8, Calcium Level 8.5, Phosphorus Level 2.5, Total Bilirubin 0.5, Aspartate Amino Transf (AST/SGOT) 49H, Alanine Aminotransferase (ALT/SGPT) 29, Alkaline Phosphatase 58, Total Creatine Kinase 222, Troponin I 0.105H, C- Reactive Protein, Quantitative 13.7H, Pro-B-Type Natriuretic Peptide 3952H, Total Protein 7.1, Albumin 2.9L, Globulin 4.2, Albumin/Globulin Ratio 0.7L Height (Feet): 5 Height (Inches): 8.00 Weight (Pounds): 182 General Appearance: no apparent distress Cardiovascular: normal rate Respiratory/Chest: decreased breath sounds Abdomen: soft Sunil Gill MD Jul 14, 2018 12:54
--- NOTE | 2018-07-14 15:30 | Progress Note ---
DATE: 07/14/2018 SUBJECTIVE: The patient had a fall while he was going to bathroom and he claims he slipped. He has no distress. His short of breath is improving. PHYSICAL EXAMINATION: VITAL SIGNS: Blood pressure is slightly still high at 165/69, pulse 62, respirations 18, and temperature 97.9. HEENT: NAD. CHEST: Bilaterally clear. CARDIOVASCULAR: Regular rhythm. ABDOMEN: Soft. Positive bowel sounds. EXTREMITIES: CCE. NEUROLOGICAL: No focal deficit. LABORATORY DATA: White counts are 5.6, hemoglobin 12. Chemistry panel, BUN 21, creatinine 1.7, and a glucose 112, troponin is 0.105. Cardiology consult was obtained. C. reactive protein is about 14,000. BNP was 3952. ASSESSMENT: 1. Possible pneumonia. 2. H. influenza. 3. Renal failure. 4. CHF. 5. Fall. 6. Uncontrolled high blood pressure. PLAN: 1. We will order PT and OT. 2. Cardiology consult. 3. We will probably make carvedilol to 12.5 twice a day. Continue current treatment. The patient is waiting for Cardiology and PT and OT. 4. We will continue Flomax. 5. Continue Colace and Pepcid. 6. Continue Tamiflu and IV fluids. Sanjeev Ferrari M.D. DR: Savita JOB#: [id number] CC:
--- NOTE | 2018-07-14 19:15 | Consultation ---
DATE OF CONSULTATION: 07/14/2018 INFECTIOUS DISEASES CONSULTATION PRIMARY ATTENDING PHYSICIAN: Sanjeev Ferrari M.D. REASON FOR CONSULTATION: Influenza A. HISTORY OF PRESENT ILLNESS: This is an 83-year-old male admitted on June from home. Few days before admission, the patient came to the ER because of constipation and anemia. At the time of admission developed diarrhea. According to , also had congestion, runny nose, and coughing. Influenza test became positive. PAST MEDICAL HISTORY: Significant for hypertension. The patient had history of pacemaker, coronary artery disease, history of angioplasty, and has BPH. ALLERGIES: No known drug allergies. MEDICATIONS: Getting Colace, Pepcid, Flomax, Tamiflu, amiodarone, atorvastatin, carvedilol, apixaban, ceftriaxone, albuterol, ipratropium inhaler. SOCIAL HISTORY: , lives at home. Denies alcohol, drug abuse, or smoking. VACCINATION HISTORY: The patient did not have a flu vaccination this year, but had pneumonia vaccination. REVIEW OF SYSTEMS: No sore throat. Some coughing that is nonproductive. No chest pain. No nausea. No vomiting. No problem passing urine. The patient is ambulatory. PHYSICAL EXAMINATION: VITAL SIGNS: Temperature 97.9 degrees, pulse 68, blood pressure 140/63. GENERAL APPEARANCE: Seems to be well developed. HEAD AND NECK: [place] conjunctiva. No oral lesion. HEART: S1, S2 regular. LUNGS: Clear. ABDOMEN: Soft and nontender. EXTREMITIES: He has no edema. NEUROLOGIC: Awake, alert, and oriented x3. LABORATORY AND DIAGNOSTIC DATA: WBC 5.6, hemoglobin 11.5, hematocrit 35.5, and platelets 83,000. Sodium 138, potassium 4.1, chloride 107, bicarbonate 24, BUN 21, creatinine 1.7. Troponin is elevated 0.105. Albumin is low 2.9. Influenza A and B antigen test was positive for influenza A. Chest x-ray showed no acute disease. IMPRESSION: Influenza A likely with upper respiratory infection, acute versus chronic renal failure. The patient has hypertension, decreased albumin, and benign prostatic hypertrophy. RECOMMENDATION: Continue Tamiflu to finish the five days course of treatment. Discontinue Rocephin. At the end of my exam, I thank Dr. Ferrari for involving me in the care of this patient. Adrian Zambrano M.D. DR: Mabel JOB#: [id number] CC: [place]
--- NOTE | 2018-07-14 19:33 | NUR ---
NURSE NOTES: Received report from ESTELA Wang
--- NOTE | 2018-07-14 19:45 | NUR ---
HAND-OFF: Report given to María PALMER.
--- NOTE | 2018-07-14 19:54 | Cardiology Progress Note ---
Assessment/Plan Assessment/Plan The patient is seen and examined, full consult note will be dictated. Objective Last 24 Hour Vital Signs Date Time Temp Pulse Resp B/P (MAP) Pulse Ox O2 Delivery O2 Flow Rate FiO2 07/14/18 16:00 97.5 62 19 144/69 (94) 100 07/14/18 12:00 98.0 70 20 147/68 (94) 100 07/14/18 10:33 68 140/63 07/14/18 09:00 Room Air 07/14/18 08:00 97.9 68 18 140/63 (88) 100 07/14/18 07:06 65 20 Room Air 21 07/14/18 04:54 165/69 07/14/18 04:00 97.9 62 18 158/98 (118) 97 07/14/18 00:40 73 18 Room Air 21 07/14/18 00:00 98.3 64 18 165/69 (101) 96 07/13/18 21:00 Room Air 07/13/18 20:20 62 174/72 07/13/18 20:00 97.7 64 18 164/70 (101) 95 Intake and Output 07/13/18 07/14/18 18:59 06:59 Intake Total 755 ml 825 ml Balance 755 ml 825 ml Intake Oral 480 ml IV Total 275 ml 825 ml # Voids 3 2 # Bowel Movements 6 Laboratory Tests Test 07/14/18 06:00 White Blood Count 5.6 K/UL (4.8-10.8) Red Blood Count 3.97 M/UL (4.70-6.10) L Hemoglobin 11.5 G/DL (14.2-18.0) L Hematocrit 35.5 % (42.0-52.0) L Mean Corpuscular Volume 90 FL (80-99) Mean Corpuscular Hemoglobin 29.1 PG (27.0-31.0) Mean Corpuscular Hemoglobin Concent 32.4 G/DL (32.0-36.0) Red Cell Distribution Width 13.7 % (11.6-14.8) Platelet Count 83 K/UL (150-450) L Mean Platelet Volume 9.5 FL (6.5-10.1) Neutrophils (%) (Auto) % (45.0-75.0) Lymphocytes (%) (Auto) % (20.0-45.0) Monocytes (%) (Auto) % (1.0-10.0) Eosinophils (%) (Auto) % (0.0-3.0) Basophils (%) (Auto) % (0.0-2.0) Differential Total Cells Counted 100 Neutrophils % (Manual) 67 % (45-75) Lymphocytes % (Manual) 15 % (20-45) L Monocytes % (Manual) 16 % (1-10) H Eosinophils % (Manual) 2 % (0-3) Basophils % (Manual) 0 % (0-2) Band Neutrophils 0 % (0-8) Platelet Estimate Decreased L Platelet Morphology Normal Hypochromasia 1+ Sodium Level 138 MMOL/L (136-145) Potassium Level 4.1 MMOL/L (3.5-5.1) Chloride Level 107 MMOL/L (98-107) Carbon Dioxide Level 24 MMOL/L (21-32) Anion Gap 7 mmol/L (5-15) Blood Urea Nitrogen 21 mg/dL (7-18) H Creatinine 1.7 MG/DL (0.55-1.30) H Estimat Glomerular Filtration Rate mL/min (>60) Glucose Level 112 MG/DL (74-106) H Uric Acid 3.8 MG/DL (2.6-7.2) Calcium Level 8.5 MG/DL (8.5-10.1) Phosphorus Level 2.5 MG/DL (2.5-4.9) Total Bilirubin 0.5 MG/DL (0.2-1.0) Aspartate Amino Transf (AST/SGOT) 49 U/L (15-37) H Alanine Aminotransferase (ALT/SGPT) 29 U/L (12-78) Alkaline Phosphatase 58 U/L (46-116) Total Creatine Kinase 222 U/L (26-308) Troponin I 0.105 ng/mL (0.000-0.056) C-Reactive Protein, Quantitative 13.7 mg/dL (0.00-0.90) H Pro-B-Type Natriuretic Peptide 3952 pg/mL (0-125) H Total Protein 7.1 G/DL (6.4-8.2) Albumin 2.9 G/DL (3.4-5.0) L Globulin 4.2 g/dL Albumin/Globulin Ratio 0.7 (1.0-2.7) L Microbiology Date/Time Source Procedure Growth Status 07/12/18 06:53 Nasal Nares Influenza Types A,B Antigen (JOVANNY) - Final Complete Markie Moreland MD Jul 14, 2018 19:54
[2018-07-14] MEDS: Atorvastatin 80mg tab ORAL SCH (20:13)
--- NOTE | 2018-07-14 21:39 | NUR ---
NURSE NOTES: Patient in bed, aox4. Clonidine given for bp of 189/80. C/o shortness of breath, 02 93% room air , placed on 2L nasal cannula. EKG performed, Dr. Moreland aware of results. Second order troponin lab pending. Reminded patient to call before getting out of bed. Due meds given, needs attended to. at bedside. Bed low, call light within reach.
--- NOTE | 2018-07-14 22:45 | Consultation ---
DATE OF CONSULTATION: 07/14/2018 CARDIOLOGY CONSULTATION CONSULTING PHYSICIAN: Markie Moreland M.D. REFERRING PHYSICIAN: Sanjeev Ferrari M.D. REASON FOR CONSULTATION: Management of shortness of breath and elevation of troponin I level. HISTORY OF PRESENT ILLNESS: The patient is a very unfortunate 83-year-old gentleman, who presents to the emergency department after feeling weak, dizzy spells following episodes of diarrhea that has been going on for about 2 days following use of stool softener given to him in this facility when he presented earlier with complaints of constipation. The patient also states that he has been having shortness of breath with productive cough with phlegm production as well as congestion. The patient also has had runny nose. Upon evaluation in the emergency department, blood pressure was 140/56 mmHg and heart rate was 74. The patient did not have any electrocardiogram and was admitted to non peoples hospital bed for management of diarrhea. Cardiology consultation was made at the request of Dr. Ferrari as his troponin I level turned out to be slightly positive at 0.1. At the time of my evaluation, the patient had trouble walking around his bed without getting dizzy or out of breath. He claims that prior to this event, he was capable of playing [employer]ash[employer] without having any difficulties. PAST MEDICAL HISTORY: 1. Hypertension. 2. History of paroxysmal atrial fibrillation for which he is on Eliquis. 3. Dual chamber pacemaker implantation due to sick sinus syndrome. FAMILY HISTORY: No premature coronary artery disease in first-degree relative. SOCIAL HISTORY: No history of tobacco, alcohol, or illicit drug use. REVIEW OF SYSTEMS: HEENT: Denies any headache, diplopia. Positive for dizziness and lightheadedness. CONSTITUTIONAL: Positive for chills. According to his , also generalized weakness, but no weight loss. CARDIOVASCULAR: Positive for shortness of breath with minimal activities. No chest pain. No PND, orthopnea, leg swelling, or syncope. PULMONARY: Positive for productive cough with phlegm, but no hemoptysis or wheezing. GASTROINTESTINAL: Denies any nausea, vomiting. He had diarrhea following use of stool softeners. Also 2 days ago, he had constipation. GENITOURINARY: Denies any hematuria, dysuria, incontinence. NEUROLOGY: Denies any motor dysfunction, sensory deficit, altered speech. There is no history of stroke in the past. MEDICATIONS: List of medication includes amiodarone 200 mg q.12 hours, Eliquis 5 mg p.o. twice daily, atorvastatin 80 mg p.o. at bedtime, Dulcolax 10 mg rectal daily as needed for constipation, carvedilol 3.125 mg q.12 hours, Pepcid AC 20 mg p.o. daily, lactulose 30 mL daily, naproxen 250 mg twice daily, [place]-3 ethyl merlin 1 tablet daily. PHYSICAL EXAMINATION: GENERAL: The patient is a very unfortunate 83-year-old gentleman, in no apparent respiratory distress. Alert and orientation x4. HEENT: Atraumatic and normocephalic. Anicteric. Pupils are equal, round, and reactive to light and accommodation. Extraocular muscles intact. NECK: JVP is less than 5 cm. No carotid bruits. Carotid upstrokes 2+ bilaterally. CARDIOVASCULAR: Normal S1, S2. There is 3/6 holosystolic murmur at the apex. LUNGS: Bibasilar crackles. ABDOMEN: Soft, nontender, nondistended. No hepatosplenomegaly. Positive bowel sounds. EXTREMITIES: No evidence of edema, clubbing, or cyanosis. LABORATORY FINDINGS: As of today sodium was 138, potassium 4.1, chloride 107, bicarbonate 24, BUN 21, creatinine 1.7, glucose is 112. Uric acid 3.8. Calcium is 8.5. Phosphorus 2.5. AST was 49 and ALT 29. Troponin I level was 0.105. ProBNP 3952. Triglyceride 87, total cholesterol is 116, LDL of 52, and HDL of 37. A 12-lead electrocardiogram shows sinus rhythm with no acute ST and T-wave abnormalities. ASSESSMENT AND PLAN: The patient is a very unfortunate 83-year-old gentleman, seen in Cardiology consultation. 1. Dyspnea most likely due to influenza A and pneumonia. There is presence of infiltration in the right middle lobe. Another mechanism for dyspnea on exertion could be congestive heart failure given elevated beta-natriuretic peptide as well as presence of a mitral regurgitation murmur, which is concerning. There is also presence of cardiomegaly on chest x-ray. A 2D echocardiography has been ordered, will be reviewed, and studied. Further diagnostic and therapeutic decision will be based on the results of 2D echocardiography. In the meantime, I would consider 1 dose of Lasix 20 mg IV push until the results of the echocardiography is available. 2. Most likely paroxysmal atrial fibrillation given the fact that he has been on amiodarone. We will continue on amiodarone 200 mg daily. The patient is also to be continued on Eliquis 5 mg twice daily. 3. Status post dual chamber permanent pacemaker. We will interrogate the device. 4. Thrombocytopenia. We will continue Eliquis at this time. I doubt Eliquis be a culprit for that. 5. History of hypertension. The patient will be continued on carvedilol. We will add hydralazine if needed given the presence of renal failure. 6. Acute kidney injury. Nephrology followup. I would like to thank Dr. Ferrari for the courtesy of this consultation. Markie Moreland M.D. DR: SUSI JOB#: [id number] CC:
[2018-07-15] VITALS (8 sets, daily range): BP systolic 118–195; BP diastolic 50–82
--- NOTE | 2018-07-15 00:05 | NUR ---
NURSE NOTES: Patient has increase in shortness of breath RR 24 02 94 on 4L nasal cannula BP 195/[address] Moreland called. Awaiting call back.
--- NOTE | 2018-07-15 00:13 | NUR ---
NURSE NOTES: RT called for breathing treatment.
[2018-07-15] MEDS: Albuterol/Ipratropium 3ml neb HHN PRN (00:30)
--- NOTE | 2018-07-15 00:48 | NUR ---
NURSE NOTES: Dr. Moreland ordered patient to be transferred to [facility]. Stat ABG ordered, D/C IV fluids, 40 mg lasix IVPx1 and hydralazine IVP q2H for SBP > 160 ([facility] only). Dr. Ferrari made aware. Breathing treatments changed from PRN to scheduled.
--- NOTE | 2018-07-15 02:02 | NUR ---
HAND-OFF: Report given to Raudel RN. Patient in stable condition. Transferred to [facility], room 244-2.
--- NOTE | 2018-07-15 02:03 | NUR ---
NURSE NOTES: Report received from ESTELA Rocha. Pt transferred to the unit via hospital bed. Pt awake and A/O x4. Denies any pain at this time. No signs of SOB. On NC 4L, saturating at 95%. Applied drum cleaner, SR with HR of 64. Denies any chest pain. VS 176/75. HR 64, T 98.4. Bed in the lowest position, semi-zhao's. Side rails up x2. Call light within reach. Will continue to monitor.
[2018-07-15] MEDS ORDERED: Albuterol/Ipratropium 3ml neb HHN SCH (03:00)
[2018-07-15] MEDS: Albuterol/Ipratropium 3ml neb HHN SCH ×5 (03:23→21:07)
--- NOTE | 2018-07-15 03:25 | NUR ---
NURSE NOTES: PRN bp med given and BP now 144/83, HR 77. Urine output 1.3L noted. Pt is getting breathing treatment. After Lasix, pt is breathing better, on NC 2L, saturation of 96%. Will continue to monitor.
--- NOTE | 2018-07-15 04:55 | NUR ---
NURSE NOTES: Observed pt sleeping on the bed. No acute distress noted at this time. Will continue to monitor.
--- NOTE | 2018-07-15 07:35 | NUR ---
HAND-OFF: Report given to Jann Krishna Observed pt sleeping on the bed, no acute distress noted.
[2018-07-15] MEDS: Amiodarone 200mg tab ORAL SCH ×2 (09:06→20:47)
[2018-07-15] MEDS: Docusate 100mg cap ORAL SCH ×3 (09:06→18:08)
[2018-07-15] MEDS: Carvedilol 6.25mg Tab ORAL SCH ×2 (09:06→20:47)
[2018-07-15] MEDS: Tamsulosin 0.4mg cap ORAL SCH ×2 (09:07→20:47)
[2018-07-15] MEDS: Eliquis 2.5mg tablet ORAL SCH ×2 (09:07→18:09)
--- NOTE | 2018-07-15 10:40 | NUR ---
NURSE NOTES: received pt in the bed, awake, alert, oriented, vital signs stable, no CO pain, no SOB at this time, skin warm and dry to touch, intact, tolerate diet well, use urinal, bed in low position, call light within reach.
--- NOTE | 2018-07-15 10:45 | NUR ---
NURSE NOTES: PT work with pt, ambulate, tolerate well, now sit in the chair.
[2018-07-15] MEDS ORDERED: Promethazine/Codeine 5ml UD ORAL PRN (11:00)
--- NOTE | 2018-07-15 11:04 | Consultation ---
History of Present Illness General Date patient seen: Jul 15, 2018 Chief Complaint: Diarrhea Present Illness HPI 83-year-old male history of CAD with 1 stent, pacemaker, hypertension, presented to [facility] ER with CC of diarrhea, then he was found to have dyspnea and cough with greenish sputum. Denies any palpitations or shortness of breath. I was called to evaluate his pulmonary symptoms. Allergies: Coded Allergies: No Known Allergies (Unverified , 02/08/17) Medication History Scheduled Amiodarone Hcl* (Amiodarone Hcl*), 200 MG ORAL EVERY 12 HOURS, (Reported) Atorvastatin (Lipitor), 80 MG ORAL BEDTIME, (Reported) Carvedilol* (Carvedilol*), 3.125 MG ORAL EVERY 12 HOURS, (Reported) Lactulose (Lactulose*), 30 ML ORAL DAILY Naproxen (Naproxen), 250 MG PO BID, (Reported) Warfarin Sod* (Coumadin*), 2 MG ORAL DAILY, (Reported) Miscellaneous Medications Apixaban (Eliquis), 5 MG PO, (Reported) Bisacodyl (Dulcolax), 10 MG RC, (Reported) Famotidine (Pepcid Ac), 20 MG PO, (Reported) [place]-3 Fatty Acids/Fish Oil ([place] 3 1,000 Mg Softgel), 1 EACH PO, (Reported) Patient History Healthcare decision maker Resuscitation status Chemical (Meds Only) Advanced Directive on File Yes Past Medical/Surgical History Past Medical/Surgical History: (1) Pacemaker (2) Stented coronary artery (3) Atrial fibrillation (4) CAD (coronary artery disease) Review of Systems Respiratory: Reports: shortness of breath All Other Systems: negative except mentioned in HPI Physical Exam General Appearance: WD/WN Lines, tubes and drains: peripheral HEENT: normocephalic, atraumatic Neck: non-tender, normal alignment Respiratory/Chest: chest wall non-tender, lungs clear Cardiovascular/Chest: normal peripheral pulses, normal rate Abdomen: normal bowel sounds, non tender Genitourinary/Rectal: normal genital exam, heme negative stool Extremities: normal range of motion, non-tender Skin Exam: normal pigmentation 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 Last 24 Hour Vital Signs Date Time Temp Pulse Resp B/P (MAP) Pulse Ox O2 Delivery O2 Flow Rate FiO2 07/15/18 10:43 80 18 100 Nasal Cannula 2.0 28 07/15/18 10:36 75 16 97 Nasal Cannula 2.0 28 07/15/18 09:06 76 126/57 07/15/18 08:00 98.1 76 26 126/57 (80) 95 07/15/18 08:00 Nasal Cannula 2.0 07/15/18 08:00 75 07/15/18 07:14 78 18 100 Nasal Cannula 2.0 28 07/15/18 07:05 73 16 Nasal Cannula 2.0 28 07/15/18 07:05 Nasal Cannula 2.0 28 07/15/18 07:05 73 16 100 Nasal Cannula 2.0 28 07/15/18 07:05 100 Nasal Cannula 2.0 28 07/15/18 06:00 142/69 (93) 07/15/18 05:24 171/69 07/15/18 04:00 71 07/15/18 04:00 Nasal Cannula 2.0 07/15/18 04:00 98.1 62 24 167/63 (97) 98 07/15/18 03:31 73 18 100 Nasal Cannula 2.0 28 07/15/18 03:24 73 18 96 Nasal Cannula 2.0 28 07/15/18 02:38 176/75 07/15/18 02:31 64 07/15/18 02:00 98.4 61 20 176/75 (108) 92 07/15/18 02:00 Nasal Cannula 2.0 07/15/18 00:38 67 20 99 Nasal Cannula 2.0 28 07/15/18 00:30 68 16 95 Nasal Cannula 2.0 28 07/15/18 00:00 97.6 72 22 195/82 (119) 92 07/14/18 21:30 64 162/65 (97) 07/14/18 21:25 69 18 Room Air 21 07/14/18 21:00 Nasal Cannula 2.0 07/14/18 20:13 71 189/80 07/14/18 20:04 189/80 07/14/18 20:00 97.8 71 19 189/80 (116) 93 07/14/18 16:00 97.5 62 19 144/69 (94) 100 07/14/18 12:00 98.0 70 20 147/68 (94) 100 Intake and Output 07/14/18 07/15/18 19:00 07:00 Intake Total 1225 ml 615 ml Output Total 1600 ml Balance 1225 ml -985 ml Intake Oral 400 ml 240 ml IV Total 825 ml 375 ml Output Urine Total 1600 ml Laboratory Tests Test 07/14/18 20:30 07/15/18 00:30 Troponin I 0.075 ng/mL (0.000-0.056) Arterial Blood pH 7.348 (7.350-7.450) Arterial Blood Partial Pressure CO2 38.8 mmHg (35.0-45.0) Arterial Blood Partial Pressure O2 89.5 mmHg (75.0-100.0) Arterial Blood HCO3 20.8 mmol/L (22.0-26.0) L Arterial Blood Oxygen Saturation 96.0 % (95-100) Arterial Blood Base Excess -4.4 (-2-2) L Lobo Test Positive Height (Feet): 5 Height (Inches): 8.00 Weight (Pounds): 182 Medications Current Medications Medications (Trade) Dose Ordered Sig/Tommy Route PRN Reason Start Time Stop Time Status Last Admin Dose Admin Albuterol/ Ipratropium (Albuterol/ Ipratropium) 3 ml Q4HRT HHN 07/15/18 03:00 07/20/18 02:59 07/15/18 10:36 Amiodarone HCl (Cordarone) 200 mg EVERY 12 HOURS ORAL 07/15/18 09:00 08/11/18 20:59 07/15/18 09:06 Apixaban (Eliquis) 5 mg BID ORAL 07/15/18 09:00 08/11/18 17:59 07/15/18 09:07 Atorvastatin Calcium (Lipitor) 80 mg BEDTIME ORAL 07/15/18 21:00 08/11/18 20:59 Bisacodyl (Dulcolax) 10 mg DAILYPRN PRN RECTAL Constipation 07/15/18 02:00 08/11/18 01:59 Carvedilol (Coreg) 6.25 mg EVERY 12 HOURS ORAL 07/15/18 09:00 08/11/18 20:59 07/15/18 09:06 Clonidine HCl (Catapres Tab) 0.1 mg Q6H PRN ORAL For High Blood Pressure 07/15/18 02:00 08/11/18 01:59 Docusate Sodium (Colace) 100 mg TID ORAL 07/15/18 09:00 08/12/18 17:59 07/15/18 09:06 Famotidine (Pepcid) 20 mg BID ORAL 07/15/18 09:00 08/12/18 08:59 07/15/18 09:06 Furosemide (Lasix) 20 mg DAILY IV 07/15/18 12:00 08/14/18 11:59 Hydralazine HCl (Apresoline) 5 mg Q2H PRN IV SBP>160 07/15/18 02:45 08/14/18 00:44 07/15/18 05:24 Oseltamivir Phosphate (Tamiflu) 30 mg DAILY ORAL 07/15/18 09:00 07/18/18 08:59 07/15/18 09:07 Promethazine HCl/ Codeine (Phenergan with Codeine) 5 ml Q4H PRN ORAL For Cough 07/15/18 11:00 08/14/18 10:59 UNV Tamsulosin HCl (Flomax) 0.4 mg Q12HR ORAL 07/15/18 09:00 08/12/18 13:44 07/15/18 09:07 Assessment/Plan Problem List: (1) Purulent bronchitis ICD Codes: 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
--- NOTE | 2018-07-15 11:10 | Infectious Diseases Prog Note ---
Assessment/Plan Assessment/Plan antibiotics : tamiflu 2.15.19 - A 1. influenza A URI 2. hypertension 3. renal failure improving 4. BPH P 1. continue tamiflu 1 more day 2. continue droplet precautions 3. will follow up clinically Subjective Constitutional: Denies: fever, chills Respiratory: Reports: shortness of breath, productive cough Gastrointestinal/Abdominal: Reports: diarrhea - decreased; Denies: nausea, vomiting Musculoskeletal: Denies: pain Allergies: Coded Allergies: No Known Allergies (Unverified , 02/08/17) Objective Vital Signs Last 24 Hour Vital Signs Date Time Temp Pulse Resp B/P (MAP) Pulse Ox O2 Delivery O2 Flow Rate FiO2 07/15/18 10:43 80 18 100 Nasal Cannula 2.0 28 07/15/18 10:36 75 16 97 Nasal Cannula 2.0 28 07/15/18 09:06 76 126/57 07/15/18 08:00 98.1 76 26 126/57 (80) 95 07/15/18 08:00 Nasal Cannula 2.0 07/15/18 08:00 75 07/15/18 07:14 78 18 100 Nasal Cannula 2.0 28 07/15/18 07:05 73 16 Nasal Cannula 2.0 28 07/15/18 07:05 Nasal Cannula 2.0 28 07/15/18 07:05 73 16 100 Nasal Cannula 2.0 28 07/15/18 07:05 100 Nasal Cannula 2.0 28 07/15/18 06:00 142/69 (93) 07/15/18 05:24 171/69 07/15/18 04:00 71 07/15/18 04:00 Nasal Cannula 2.0 07/15/18 04:00 98.1 62 24 167/63 (97) 98 07/15/18 03:31 73 18 100 Nasal Cannula 2.0 28 07/15/18 03:24 73 18 96 Nasal Cannula 2.0 28 07/15/18 02:38 176/75 07/15/18 02:31 64 07/15/18 02:00 98.4 61 20 176/75 (108) 92 07/15/18 02:00 Nasal Cannula 2.0 07/15/18 00:38 67 20 99 Nasal Cannula 2.0 28 07/15/18 00:30 68 16 95 Nasal Cannula 2.0 28 07/15/18 00:00 97.6 72 22 195/82 (119) 92 07/14/18 21:30 64 162/65 (97) 07/14/18 21:25 69 18 Room Air 21 07/14/18 21:00 Nasal Cannula 2.0 07/14/18 20:13 71 189/80 07/14/18 20:04 189/80 07/14/18 20:00 97.8 71 19 189/80 (116) 93 07/14/18 16:00 97.5 62 19 144/69 (94) 100 07/14/18 12:00 98.0 70 20 147/68 (94) 100 Height (Feet): 5 Height (Inches): 8.00 Weight (Pounds): 182 Respiratory/Chest: lungs clear Cardiovascular: normal rate, regular rhythm, no gallop/murmur Abdomen: soft, non tender Extremities: no edema Laboratory Tests Test 07/14/18 20:30 07/15/18 00:30 Troponin I 0.075 ng/mL (0.000-0.056) Arterial Blood pH 7.348 (7.350-7.450) Arterial Blood Partial Pressure CO2 38.8 mmHg (35.0-45.0) Arterial Blood Partial Pressure O2 89.5 mmHg (75.0-100.0) Arterial Blood HCO3 20.8 mmol/L (22.0-26.0) L Arterial Blood Oxygen Saturation 96.0 % (95-100) Arterial Blood Base Excess -4.4 (-2-2) L Lobo Test Positive Current Medications Medications (Trade) Dose Ordered Sig/Tommy Route PRN Reason Start Time Stop Time Status Last Admin Dose Admin Albuterol/ Ipratropium (Albuterol/ Ipratropium) 3 ml Q4HRT HHN 07/15/18 03:00 07/20/18 02:59 07/15/18 10:36 Amiodarone HCl (Cordarone) 200 mg EVERY 12 HOURS ORAL 07/15/18 09:00 08/11/18 20:59 07/15/18 09:06 Apixaban (Eliquis) 5 mg BID ORAL 07/15/18 09:00 08/11/18 17:59 07/15/18 09:07 Atorvastatin Calcium (Lipitor) 80 mg BEDTIME ORAL 07/15/18 21:00 08/11/18 20:59 Bisacodyl (Dulcolax) 10 mg DAILYPRN PRN RECTAL Constipation 07/15/18 02:00 08/11/18 01:59 Carvedilol (Coreg) 6.25 mg EVERY 12 HOURS ORAL 07/15/18 09:00 08/11/18 20:59 07/15/18 09:06 Clonidine HCl (Catapres Tab) 0.1 mg Q6H PRN ORAL For High Blood Pressure 07/15/18 02:00 08/11/18 01:59 Docusate Sodium (Colace) 100 mg TID ORAL 07/15/18 09:00 08/12/18 17:59 07/15/18 09:06 Famotidine (Pepcid) 20 mg BID ORAL 07/15/18 09:00 08/12/18 08:59 07/15/18 09:06 Furosemide (Lasix) 20 mg DAILY IV 07/15/18 12:00 08/14/18 11:59 Hydralazine HCl (Apresoline) 5 mg Q2H PRN IV SBP>160 07/15/18 02:45 08/14/18 00:44 07/15/18 05:24 Oseltamivir Phosphate (Tamiflu) 30 mg DAILY ORAL 07/15/18 09:00 07/18/18 08:59 07/15/18 09:07 Promethazine HCl/ Codeine (Phenergan with Codeine) 5 ml Q4H PRN ORAL For Cough 07/15/18 11:00 08/14/18 10:59 Tamsulosin HCl (Flomax) 0.4 mg Q12HR ORAL 07/15/18 09:00 08/12/18 13:44 07/15/18 09:07 Sri Antoine MD Jul 15, 2018 11:10
[2018-07-15 11:37] LABS: CREATINE KINASE 145 U/L (26-308)
--- NOTE | 2018-07-15 12:24 | Nephrology Progress Note ---
Assessment/Plan Problem List: (1) Renal failure (ARF), acute on chronic (2) Pacemaker Assessment renal failure: Likely acute on chronic Dehydration Diarrhea Influenza A Pacemaker Plan lasix for chf Urine studies Monitor renal parameters Avoid Nephrotoxics flomax 2D echo pending Subjective ROS Limited/Unobtainable: No Constitutional: Reports: malaise Objective Objective Last 24 Hour Vital Signs Date Time Temp Pulse Resp B/P (MAP) Pulse Ox O2 Delivery O2 Flow Rate FiO2 07/15/18 10:43 80 18 100 Nasal Cannula 2.0 28 07/15/18 10:36 75 16 97 Nasal Cannula 2.0 28 07/15/18 09:06 76 126/57 07/15/18 08:00 98.1 76 26 126/57 (80) 95 07/15/18 08:00 Nasal Cannula 2.0 07/15/18 08:00 75 07/15/18 07:14 78 18 100 Nasal Cannula 2.0 28 07/15/18 07:05 73 16 Nasal Cannula 2.0 28 07/15/18 07:05 Nasal Cannula 2.0 28 07/15/18 07:05 73 16 100 Nasal Cannula 2.0 28 07/15/18 07:05 100 Nasal Cannula 2.0 28 07/15/18 06:00 142/69 (93) 07/15/18 05:24 171/69 07/15/18 04:00 71 07/15/18 04:00 Nasal Cannula 2.0 07/15/18 04:00 98.1 62 24 167/63 (97) 98 07/15/18 03:31 73 18 100 Nasal Cannula 2.0 28 07/15/18 03:24 73 18 96 Nasal Cannula 2.0 28 07/15/18 02:38 176/75 07/15/18 02:31 64 07/15/18 02:00 98.4 61 20 176/75 (108) 92 07/15/18 02:00 Nasal Cannula 2.0 07/15/18 00:38 67 20 99 Nasal Cannula 2.0 28 07/15/18 00:30 68 16 95 Nasal Cannula 2.0 28 07/15/18 00:00 97.6 72 22 195/82 (119) 92 07/14/18 21:30 64 162/65 (97) 07/14/18 21:25 69 18 Room Air 21 07/14/18 21:00 Nasal Cannula 2.0 07/14/18 20:13 71 189/80 07/14/18 20:04 189/80 07/14/18 20:00 97.8 71 19 189/80 (116) 93 07/14/18 16:00 97.5 62 19 144/69 (94) 100 Intake and Output 07/14/18 07/15/18 19:00 07:00 Intake Total 1225 ml 615 ml Output Total 1600 ml Balance 1225 ml -985 ml Intake Oral 400 ml 240 ml IV Total 825 ml 375 ml Output Urine Total 1600 ml Laboratory Tests 07/14/18 20:30: Troponin I 0.075H 07/15/18 00:30: Arterial Blood pH 7.348L, Arterial Blood Partial Pressure CO2 38.8, Arterial Blood Partial Pressure O2 89.5, Arterial Blood HCO3 20.8L, Arterial Blood Oxygen Saturation 96.0, Arterial Blood Base Excess -4.4L, Lobo Test Positive 07/15/18 11:15: Uric Acid 3.6, Total Creatine Kinase 145 Height (Feet): 5 Height (Inches): 8.00 Weight (Pounds): 182 General Appearance: no apparent distress Cardiovascular: normal rate Respiratory/Chest: decreased breath sounds Abdomen: soft Objective no change Sunil Gill MD Jul 15, 2018 12:24
--- NOTE | 2018-07-15 12:37 | Diagnostic Imaging Report ---
Indication: Dyspnea Comparison: 07/14/2018 A single view chest radiograph was obtained. Findings: Patchy, primarily interstitial. Densities are noted bilaterally. Heart is enlarged. Pacemaker noted on the left. IMPRESSION: Similar findings to prior occasion. Pneumonitis versus interstitial edema
[2018-07-15 13:05] LABS: APPEARANCE,URINE CLEAR; BILIRUBIN, URINE NEGATIVE (NEGATIVE); COLOR,URINE PALE YELLOW; GLUCOSE, URINE (UA) NEGATIVE (NEGATIVE); KETONES,URINE NEGATIVE (NEGATIVE); LEUKOCYTE ESTERASE ,URINE NEGATIVE (NEGATIVE); NITRITE,URINE NEGATIVE (NEGATIVE); PH,URINE 6 (4.5-8.0); PROTEIN,URINE 1+ (NEGATIVE); UROBILINOGEN,URINE NORMAL MG/DL (0.0-1.0)
--- NOTE | 2018-07-15 14:16 | Diagnostic Imaging Report ---
Indication: Cough Comparison: 07/12/2018 A single view chest radiograph was obtained. Findings: Interstitial vascular prominence demonstrated slightly heterogeneous in distribution. The heart is enlarged. There is a left pacemaker noted. IMPRESSION: Slightly worsening interstitial edema versus pneumonitis
--- NOTE | 2018-07-15 14:52 | NUR ---
NURSE NOTES: pt resting, no co pain, no SOB, bed bath given, continue monitoring.
--- NOTE | 2018-07-15 15:10 | NUR ---
P.T Note: P.T evaluation completed and tx initiated. Please refer to P.T evaluation for current functional status. Pt is limited by generalized weakness and poor activity tolerance as evidenced by SOB with simple exertion and needing intermittent breaks . O2 saturation at 82-88% room with activities. Skilled P.T service is warranted to increase his strength, balance and endurance to improve safety and independence with ADL/functional mobilities gait. Recommend DC to prior living arrangement with P.T follow up.
--- NOTE | 2018-07-15 17:30 | Progress Note ---
DATE: 07/15/2018 SUBJECTIVE: This is an 83-year-old , currently was found as short of breath last night and was feeling generalized weakness transplant unit to step-down unit. The patient is currently awake and comfortable. Short of breath is improving. Pulmonary consult was obtained and chest x-ray is also done. OBJECTIVE: VITAL SIGNS: Blood pressure 126/57, pulse 76, respirations 26, and temperature 98.1. HEENT: NAD. CHEST: Bilateral few crackles. CARDIOVASCULAR: Regular rhythm. No gallop. No murmur. ABDOMEN: Soft. Positive bowel sounds. EXTREMITIES: CCE. NEUROLOGICAL: Generalized weakness. LABORATORY DATA: Chemistry panel, troponin 0.075 and yesterday BNP was 3952, protein 7.1. His ABG, pH 7.34, pCO2 38, pO2 89, and bicarb 21. ASSESSMENT AND PLAN: 1. Acute coronary syndrome. 2. Acute bronchitis. 3. CHF. 4. Hypertension. 5. Coronary artery disease. 6. Generalized weakness. PLAN: The patient's chest x-ray was done on 07/12/2018, showing no acute process. We will currently continue current medical treatment. The patient is waiting for cardiac workup. Continue Lipitor, amiodarone, apixaban, carvedilol, Colace, Pepcid, Flomax, bronchodilator treatment, hydralazine, and clonidine and probably we will give other dose of Lasix and consider Pulmonary consult. Sanjeev Ferrari M.D. DR: CARLOS JOB#: [id number] CC:
--- NOTE | 2018-07-15 18:52 | Cardiology Progress Note ---
Assessment/Plan Assessment/Plan 1. Acute heart failure with normal EF by echo, pseudo-normal LV physiology suggestive of moderately elevated LAP, recommend lasix, ? ischemic CM given elevated troponin I levels, require cardiac cath once influenza virus is resolved. 2. Severe pulmonary hypertension, ? etiology, some contribution from left heart failure, ? other etiologies. Requires right heart catheterization to verify pulmonary HTN and to evaluate pulmonary vein pressure, i.e PCWP. 3. Influenza pneumonitis 4. PAF, on Eliquis. 5. Permanent pacemaker, normal function. Subjective Subjective Sinus rhythm at rate of 70. Transferred to [facility]. Objective Last 24 Hour Vital Signs Date Time Temp Pulse Resp B/P (MAP) Pulse Ox O2 Delivery O2 Flow Rate FiO2 07/15/18 16:00 Nasal Cannula 2.0 07/15/18 16:00 70 07/15/18 16:00 97.9 70 20 118/50 (72) 100 07/15/18 15:30 70 16 100 Nasal Cannula 2.0 28 07/15/18 15:15 69 16 99 Nasal Cannula 2.0 28 07/15/18 12:00 69 07/15/18 12:00 Nasal Cannula 2.0 07/15/18 12:00 98.6 66 26 144/67 (92) 100 07/15/18 10:43 80 18 100 Nasal Cannula 2.0 28 07/15/18 10:36 75 16 97 Nasal Cannula 2.0 28 07/15/18 09:06 76 126/57 07/15/18 08:00 98.1 76 26 126/57 (80) 95 07/15/18 08:00 Nasal Cannula 2.0 07/15/18 08:00 75 07/15/18 07:14 78 18 100 Nasal Cannula 2.0 28 07/15/18 07:05 73 16 Nasal Cannula 2.0 28 07/15/18 07:05 Nasal Cannula 2.0 28 07/15/18 07:05 73 16 100 Nasal Cannula 2.0 28 07/15/18 07:05 100 Nasal Cannula 2.0 28 07/15/18 06:00 142/69 (93) 07/15/18 05:24 171/69 07/15/18 04:00 71 07/15/18 04:00 Nasal Cannula 2.0 07/15/18 04:00 98.1 62 24 167/63 (97) 98 07/15/18 03:31 73 18 100 Nasal Cannula 2.0 28 07/15/18 03:24 73 18 96 Nasal Cannula 2.0 28 07/15/18 02:38 176/75 07/15/18 02:31 64 07/15/18 02:00 98.4 61 20 176/75 (108) 92 07/15/18 02:00 Nasal Cannula 2.0 07/15/18 00:38 67 20 99 Nasal Cannula 2.0 28 07/15/18 00:30 68 16 95 Nasal Cannula 2.0 28 07/15/18 00:00 97.6 72 22 195/82 (119) 92 07/14/18 21:30 64 162/65 (97) 07/14/18 21:25 69 18 Room Air 21 07/14/18 21:00 Nasal Cannula 2.0 07/14/18 20:13 71 189/80 07/14/18 20:04 189/80 07/14/18 20:00 97.8 71 19 189/80 (116) 93 Intake and Output 07/14/18 07/15/18 18:59 06:59 Intake Total 1225 ml 690 ml Output Total 1600 ml Balance 1225 ml -910 ml Intake Oral 400 ml 240 ml IV Total 825 ml 450 ml Output Urine Total 1600 ml 2D Echo: Borderline LVEF ~45-50%, Pseudo-normal LV physio, Sev TR/RVSP ~80 Laboratory Tests Test 07/14/18 20:30 07/15/18 00:30 07/15/18 11:15 07/15/18 12:00 Troponin I 0.075 ng/mL (0.000-0.056) Arterial Blood pH 7.348 (7.350-7.450) Arterial Blood Partial Pressure CO2 38.8 mmHg (35.0-45.0) Arterial Blood Partial Pressure O2 89.5 mmHg (75.0-100.0) Arterial Blood HCO3 20.8 mmol/L (22.0-26.0) L Arterial Blood Oxygen Saturation 96.0 % (95-100) Arterial Blood Base Excess -4.4 (-2-2) L Lobo Test Positive Uric Acid 3.6 MG/DL (2.6-7.2) Total Creatine Kinase 145 U/L (26-308) C-Reactive Protein, Quantitative 16.2 mg/dL (0.00-0.90) H Urine Color Pale yellow Urine Appearance Clear Urine pH 6 (4.5-8.0) Urine Specific Geraldine 1.005 (1.005-1.035) Urine Protein 1+ (NEGATIVE) H Urine Glucose (UA) Negative (NEGATIVE) Urine Ketones Negative (NEGATIVE) Urine Blood Negative (NEGATIVE) Urine Nitrite Negative (NEGATIVE) Urine Bilirubin Negative (NEGATIVE) Urine Urobilinogen Normal MG/DL (0.0-1.0) Urine Leukocyte Esterase Negative (NEGATIVE) Urine RBC 0 /HPF (0 - 0) Urine WBC 0-2 /HPF (0 - 0) Urine Squamous Epithelial Cells None /LPF (NONE/OCC) Urine Bacteria Occasional /HPF (NONE) Urine Eosinophils None seen (NONE SEEN) Objective HEENT: Atraumatic and normocephalic. Anicteric. Pupils are equal, round, and reactive to light and accommodation. Extraocular muscles intact. NECK: JVP is less than 5 cm. No carotid bruits. Carotid upstrokes 2+ bilaterally. CARDIOVASCULAR: Normal S1, S2. There is 3/6 holosystolic murmur at the apex. LUNGS: Bibasilar crackles. ABDOMEN: Soft, nontender, nondistended. No hepatosplenomegaly. Positive bowel sounds. EXTREMITIES: No evidence of edema, clubbing, or cyanosis. Markie Moreland MD Jul 15, 2018 18:52
--- NOTE | 2018-07-15 19:06 | NUR ---
HAND-OFF: Report given to JAKE PALMER, no any distress at this time.
--- NOTE | 2018-07-15 19:06 | NUR ---
NURSE NOTES: Received report from Sudheer Jimenez RN. Patient is awake in bed watching television, A/O x4. No s/s of acute distress noted at this time. Sinus rhythm on nps. Saturating well on 2L O2 via nasal cannula. Right AC 20g IV saline lock, intact and patent. Bed locked in lowest position with side rails up x2. Call light left within reach. Will continue to monitor.
[2018-07-15] MEDS: Atorvastatin 80mg tab ORAL SCH (20:47)
[2018-07-16] VITALS: BP 126/67
[2018-07-16] MEDS: Albuterol/Ipratropium 3ml neb HHN SCH ×6 (00:36→20:39)
[2018-07-16 04:00] VITALS: BP 130/57
[2018-07-16 05:40] LABS: HEMATOCRIT 34.8 % (42.0-52.0); HEMOGLOBIN 11.5 G/DL (14.2-18.0); MEAN CORPUSCULAR VOLUME 87 FL (80-99); PLATELET COUNT 97 K/UL (150-450); RED BLOOD COUNT 3.98 M/UL (4.70-6.10); RED CELL DISTRIBUTION WIDTH 13.1 % (11.6-14.8); WHITE BLOOD COUNT 8.2 K/UL (4.8-10.8)
[2018-07-16 06:37] LABS: PHOSPHORUS 2.7 MG/DL (2.5-4.9)
[2018-07-16 06:44] LABS: ALANINE AMINOTRANSFERASE 25 U/L (12-78); ALBUMIN 2.5 G/DL (3.4-5.0); ALBUMIN/GLOBULIN RATIO 0.7 (1.0-2.7); ALKALINE PHOSPHATASE 53 U/L (46-116); ANION GAP 10 mmol/L (5-15); ASPARTATE AMINO TRANSFERASE 33 U/L (15-37); BILIRUBIN,TOTAL 1.1 MG/DL (0.2-1.0); BLOOD UREA NITROGEN 16 mg/dL (7-18); CALCIUM 7.8 MG/DL (8.5-10.1); CARBON DIOXIDE 26 MMOL/L (21-32); CHLORIDE 102 MMOL/L (98-107); CREATININE 1.7 MG/DL (0.55-1.30); POTASSIUM 3.6 MMOL/L (3.5-5.1); SODIUM 138 MMOL/L (136-145)
[2018-07-16 06:47] LABS: BILIRUBIN,DIRECT 0.3 MG/DL (0.0-0.3)
--- NOTE | 2018-07-16 07:06 | NUR ---
NURSE NOTES: 0702 Genie called to report patient troponin level of 0.061. MD not notified d/t troponin trending down.
--- NOTE | 2018-07-16 07:10 | NUR ---
HAND-OFF: Report given to Sudheer Jimenez RN.
[2018-07-16 08:00] VITALS: BP 157/62
--- NOTE | 2018-07-16 08:10 | NUR ---
NURSE NOTES: received pt in the bed, awake, alert, oriented, vital signs stable, no SOB, respiration regular, no co pain, skin warm and dry to touch, intact, tolerate diet well, bed in low position, call light within reach.
[2018-07-16] MEDS: Amiodarone 200mg tab ORAL SCH ×2 (08:34→20:48)
[2018-07-16] MEDS: Carvedilol 6.25mg Tab ORAL SCH ×2 (08:34→20:49)
[2018-07-16] MEDS: Eliquis 2.5mg tablet ORAL SCH ×2 (08:34→17:45)
[2018-07-16] MEDS: Docusate 100mg cap ORAL SCH ×3 (08:35→17:45)
[2018-07-16] MEDS: Tamsulosin 0.4mg cap ORAL SCH ×2 (08:36→20:48)
--- NOTE | 2018-07-16 09:06 | NUR ---
RADIOLOGY DEPT CHEST X-RAY DONE.-P.DYE
--- NOTE | 2018-07-16 09:56 | Infectious Diseases Prog Note ---
Assessment/Plan Assessment/Plan A 1. influenza A URI 2. hypertension 3. renal failure improving 4. BPH 5. Acute CHF 6. Pulmonary hypertension P 1. continue Tamiflu until tomorrow 2. continue droplet precautions 3. will follow up clinically Subjective ROS Limited/Unobtainable: No Constitutional: Reports: no symptoms Respiratory: Reports: productive cough Cardiovascular: Reports: no symptoms Gastrointestinal/Abdominal: Reports: no symptoms Genitourinary: Reports: no symptoms Allergies: Coded Allergies: No Known Allergies (Unverified , 02/08/17) Objective Vital Signs Last 24 Hour Vital Signs Date Time Temp Pulse Resp B/P (MAP) Pulse Ox O2 Delivery O2 Flow Rate FiO2 07/16/18 08:34 62 157/62 07/16/18 08:00 Nasal Cannula 2.0 07/16/18 08:00 97.9 62 18 157/62 (93) 100 07/16/18 08:00 68 07/16/18 07:22 68 18 97 Nasal Cannula 2.0 28 07/16/18 07:13 62 16 Nasal Cannula 2.0 28 07/16/18 07:13 Nasal Cannula 2.0 28 07/16/18 07:12 68 18 94 Nasal Cannula 2.0 28 07/16/18 07:12 94 Nasal Cannula 2.0 28 07/16/18 04:00 Nasal Cannula 2.0 07/16/18 04:00 98.5 62 20 130/57 (81) 99 07/16/18 03:20 72 07/16/18 02:39 71 18 99 Nasal Cannula 2.0 28 07/16/18 00:46 71 18 100 Nasal Cannula 2.0 28 07/16/18 00:36 69 18 100 Nasal Cannula 2.0 28 07/16/18 00:00 Nasal Cannula 2.0 07/16/18 00:00 99.3 70 20 126/67 (86) 100 07/15/18 23:31 64 07/15/18 21:17 66 16 100 Nasal Cannula 2.0 28 07/15/18 21:07 63 16 Nasal Cannula 2.0 28 07/15/18 21:07 63 16 100 Nasal Cannula 2.0 28 07/15/18 21:07 Nasal Cannula 2.0 28 07/15/18 21:07 100 Nasal Cannula 2.0 28 07/15/18 20:47 64 122/57 07/15/18 20:00 99.4 64 20 122/57 (78) 99 07/15/18 20:00 Nasal Cannula 2.0 07/15/18 19:30 62 07/15/18 16:00 Nasal Cannula 2.0 07/15/18 16:00 70 07/15/18 16:00 97.9 70 20 118/50 (72) 100 07/15/18 15:30 70 16 100 Nasal Cannula 2.0 28 07/15/18 15:15 69 16 99 Nasal Cannula 2.0 28 07/15/18 12:00 69 07/15/18 12:00 Nasal Cannula 2.0 07/15/18 12:00 98.6 66 26 144/67 (92) 100 07/15/18 10:43 80 18 100 Nasal Cannula 2.0 28 07/15/18 10:36 75 16 97 Nasal Cannula 2.0 28 Height (Feet): 5 Height (Inches): 8.00 Weight (Pounds): 182 General Appearance: no acute distress HEENT: mucous membranes moist Respiratory/Chest: lungs clear Cardiovascular: normal rate Abdomen: soft, non tender Extremities: no edema Neurologic/Psychiatric: alert, oriented x 3, responsive Microbiology Date/Time Source Procedure Growth Status 07/15/18 18:00 Sputum Gram Stain Pending Resulted 07/15/18 18:00 Sputum Sputum Culture - Preliminary NO GROWTH Resulted Laboratory Tests Test 07/15/18 11:15 07/15/18 12:00 07/16/18 03:25 Uric Acid 3.6 MG/DL (2.6-7.2) 3.8 MG/DL (2.6-7.2) Total Creatine Kinase 145 U/L (26-308) C-Reactive Protein, Quantitative 16.2 mg/dL (0.00-0.90) H Urine Color Pale yellow Urine Appearance Clear Urine pH 6 (4.5-8.0) Urine Specific Wise 1.005 (1.005-1.035) Urine Protein 1+ (NEGATIVE) H Urine Glucose (UA) Negative (NEGATIVE) Urine Ketones Negative (NEGATIVE) Urine Blood Negative (NEGATIVE) Urine Nitrite Negative (NEGATIVE) Urine Bilirubin Negative (NEGATIVE) Urine Urobilinogen Normal MG/DL (0.0-1.0) Urine Leukocyte Esterase Negative (NEGATIVE) Urine RBC 0 /HPF (0 - 0) Urine WBC 0-2 /HPF (0 - 0) Urine Squamous Epithelial Cells None /LPF (NONE/OCC) Urine Bacteria Occasional /HPF (NONE) Urine Eosinophils None seen (NONE SEEN) White Blood Count 8.2 K/UL (4.8-10.8) Red Blood Count 3.98 M/UL (4.70-6.10) L Hemoglobin 11.5 G/DL (14.2-18.0) L Hematocrit 34.8 % (42.0-52.0) L Mean Corpuscular Volume 87 FL (80-99) Mean Corpuscular Hemoglobin 28.8 PG (27.0-31.0) Mean Corpuscular Hemoglobin Concent 32.9 G/DL (32.0-36.0) Red Cell Distribution Width 13.1 % (11.6-14.8) Platelet Count 97 K/UL (150-450) L Mean Platelet Volume 11.2 FL (6.5-10.1) H Neutrophils (%) (Auto) % (45.0-75.0) Lymphocytes (%) (Auto) % (20.0-45.0) Monocytes (%) (Auto) % (1.0-10.0) Eosinophils (%) (Auto) % (0.0-3.0) Basophils (%) (Auto) % (0.0-2.0) Sodium Level 138 MMOL/L (136-145) Potassium Level 3.6 MMOL/L (3.5-5.1) Chloride Level 102 MMOL/L (98-107) Carbon Dioxide Level 26 MMOL/L (21-32) Anion Gap 10 mmol/L (5-15) Blood Urea Nitrogen 16 mg/dL (7-18) Creatinine 1.7 MG/DL (0.55-1.30) H Estimat Glomerular Filtration Rate mL/min (>60) Glucose Level 92 MG/DL (74-106) Hemoglobin A1c 6.0 % (4.3-6.0) Calcium Level 7.8 MG/DL (8.5-10.1) L Phosphorus Level 2.7 MG/DL (2.5-4.9) Magnesium Level 1.6 MG/DL (1.8-2.4) L Total Bilirubin 1.1 MG/DL (0.2-1.0) H Direct Bilirubin 0.3 MG/DL (0.0-0.3) Aspartate Amino Transf (AST/SGOT) 33 U/L (15-37) Alanine Aminotransferase (ALT/SGPT) 25 U/L (12-78) Alkaline Phosphatase 53 U/L (46-116) Troponin I 0.061 ng/mL (0.000-0.056) Pro-B-Type Natriuretic Peptide 4638 pg/mL (0-125) H Total Protein 6.3 G/DL (6.4-8.2) L Albumin 2.5 G/DL (3.4-5.0) L Globulin 3.8 g/dL Albumin/Globulin Ratio 0.7 (1.0-2.7) L Current Medications Medications (Trade) Dose Ordered Sig/Tommy Route PRN Reason Start Time Stop Time Status Last Admin Dose Admin Albuterol/ Ipratropium (Albuterol/ Ipratropium) 3 ml Q4HRT HHN 07/15/18 03:00 07/20/18 02:59 07/16/18 07:12 Amiodarone HCl (Cordarone) 200 mg EVERY 12 HOURS ORAL 07/15/18 09:00 08/11/18 20:59 07/16/18 08:34 Apixaban (Eliquis) 5 mg BID ORAL 07/15/18 09:00 08/11/18 17:59 07/16/18 08:34 Atorvastatin Calcium (Lipitor) 80 mg BEDTIME ORAL 07/15/18 21:00 08/11/18 20:59 07/15/18 20:47 Bisacodyl (Dulcolax) 10 mg DAILYPRN PRN RECTAL Constipation 07/15/18 02:00 08/11/18 01:59 Carvedilol (Coreg) 6.25 mg EVERY 12 HOURS ORAL 07/15/18 09:00 08/11/18 20:59 07/16/18 08:34 Clonidine HCl (Catapres Tab) 0.1 mg Q6H PRN ORAL For High Blood Pressure 07/15/18 02:00 08/11/18 01:59 Docusate Sodium (Colace) 100 mg TID ORAL 07/15/18 09:00 08/12/18 17:59 07/16/18 08:35 Famotidine (Pepcid) 20 mg BID ORAL 07/15/18 09:00 08/12/18 08:59 07/16/18 08:34 Furosemide (Lasix) 20 mg DAILY IV 07/15/18 12:00 08/14/18 11:59 07/16/18 08:35 Hydralazine HCl (Apresoline) 5 mg Q2H PRN IV SBP>160 07/15/18 02:45 08/14/18 00:44 07/15/18 05:24 Oseltamivir Phosphate (Tamiflu) 30 mg DAILY ORAL 07/15/18 09:00 07/18/18 08:59 07/16/18 08:35 Promethazine HCl/ Codeine (Phenergan with Codeine) 5 ml Q4H PRN ORAL For Cough 07/15/18 11:00 08/14/18 10:59 Tamsulosin HCl (Flomax) 0.4 mg Q12HR ORAL 07/15/18 09:00 08/12/18 13:44 07/16/18 08:36 Adrian Zambrano MD Jul 16, 2018 09:56
--- NOTE | 2018-07-16 10:55 | Diagnostic Imaging Report ---
Indication: Shortness of breath Technique: One view of the chest Comparison: 07/15/2018 Findings: Interstitial and airspace edema has increased slightly, right greater than left. Cardiomegaly persists. Left chest pacemaker again noted. Impression: Slightly increased interstitial and airspace edema, over one
--- NOTE | 2018-07-16 11:42 | Pulmonology Progress Note ---
Assessment/Plan Problems: (1) Purulent bronchitis (2) CHF (congestive heart failure) (3) Renal failure (ARF), acute on chronic (4) Stented coronary artery (5) CAD (coronary artery disease) (6) HTN (hypertension) (7) Pacemaker Assessment/Plan diuresed 4 liters so far watch BUN/creatinine respiratory treatment monitor BP Physical therapy ordered dvt prophylaxis. Subjective ROS Limited/Unobtainable: No Constitutional: Reports: no symptoms HEENT: Repors: no symptoms Allergies: Coded Allergies: No Known Allergies (Unverified , 02/08/17) Objective Last 24 Hour Vital Signs Date Time Temp Pulse Resp B/P (MAP) Pulse Ox O2 Delivery O2 Flow Rate FiO2 07/16/18 08:34 62 157/62 07/16/18 08:00 Nasal Cannula 2.0 07/16/18 08:00 97.9 62 18 157/62 (93) 100 07/16/18 08:00 68 07/16/18 07:22 68 18 97 Nasal Cannula 2.0 28 07/16/18 07:13 62 16 Nasal Cannula 2.0 28 07/16/18 07:13 Nasal Cannula 2.0 28 07/16/18 07:12 68 18 94 Nasal Cannula 2.0 28 07/16/18 07:12 94 Nasal Cannula 2.0 28 07/16/18 04:00 Nasal Cannula 2.0 07/16/18 04:00 98.5 62 20 130/57 (81) 99 07/16/18 03:20 72 07/16/18 02:39 71 18 99 Nasal Cannula 2.0 28 07/16/18 00:46 71 18 100 Nasal Cannula 2.0 28 07/16/18 00:36 69 18 100 Nasal Cannula 2.0 28 07/16/18 00:00 Nasal Cannula 2.0 07/16/18 00:00 99.3 70 20 126/67 (86) 100 07/15/18 23:31 64 07/15/18 21:17 66 16 100 Nasal Cannula 2.0 28 07/15/18 21:07 63 16 Nasal Cannula 2.0 28 07/15/18 21:07 63 16 100 Nasal Cannula 2.0 28 07/15/18 21:07 Nasal Cannula 2.0 28 07/15/18 21:07 100 Nasal Cannula 2.0 28 07/15/18 20:47 64 122/57 07/15/18 20:00 99.4 64 20 122/57 (78) 99 07/15/18 20:00 Nasal Cannula 2.0 07/15/18 19:30 62 07/15/18 16:00 Nasal Cannula 2.0 07/15/18 16:00 70 07/15/18 16:00 97.9 70 20 118/50 (72) 100 07/15/18 15:30 70 16 100 Nasal Cannula 2.0 28 07/15/18 15:15 69 16 99 Nasal Cannula 2.0 28 07/15/18 12:00 69 07/15/18 12:00 Nasal Cannula 2.0 07/15/18 12:00 98.6 66 26 144/67 (92) 100 Intake and Output 07/15/18 07/16/18 19:00 07:00 Intake Total 540 ml 120 ml Output Total 1100 ml 800 ml Balance -560 ml -680 ml Intake Oral 540 ml 120 ml Output Urine Total 1100 ml 800 ml General Appearance: cachetic HEENT: normocephalic, atraumatic Respiratory/Chest: chest wall non-tender, lungs clear Cardiovascular: normal peripheral pulses, normal rate Abdomen: normal bowel sounds, soft, non tender Genitourinary: normal external genitalia Extremities: no clubbing 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, no motor/sensory deficits Lymphatic: no neck adenopathy Microbiology Date/Time Source Procedure Growth Status 07/15/18 18:00 Sputum Gram Stain Pending Resulted 07/15/18 18:00 Sputum Sputum Culture - Preliminary NO GROWTH Resulted Laboratory Tests 07/15/18 12:00: Urine Color Pale yellow, Urine Appearance Clear, Urine pH 6, Urine Specific [place] 1.005, Urine Protein 1+H, Urine Glucose (UA) Negative, Urine Ketones Negative, Urine Blood Negative, Urine Nitrite Negative, Urine Bilirubin Negative , Urine Urobilinogen Normal, Urine Leukocyte Esterase Negative, Urine RBC 0, Urine WBC 0-2, Urine Squamous Epithelial Cells None, Urine Bacteria Occasional, Urine Eosinophils None seen 07/16/18 03:25: White Blood Count 8.2, Red Blood Count 3.98L, Hemoglobin 11.5L, Hematocrit 34.8L , Mean Corpuscular Volume 87, Mean Corpuscular Hemoglobin 28.8, Mean Corpuscular Hemoglobin Concent 32.9, Red Cell Distribution Width 13.1, Platelet Count 97L, Mean Platelet Volume 11.2H, Neutrophils (%) (Auto) , Lymphocytes (%) (Auto) , Monocytes (%) (Auto) , Eosinophils (%) (Auto) , Basophils (%) (Auto) , Sodium Level 138, Potassium Level 3.6, Chloride Level 102, Carbon Dioxide Level 26, Anion Gap 10, Blood Urea Nitrogen 16, Creatinine 1.7H, Estimat Glomerular Filtration Rate , Glucose Level 92, Hemoglobin A1c 6.0, Uric Acid 3.8, Calcium Level 7.8L, Phosphorus Level 2.7, Magnesium Level 1.6L, Total Bilirubin 1.1H, Direct Bilirubin 0.3, Aspartate Amino Transf (AST/SGOT) 33, Alanine Aminotransferase (ALT/SGPT) 25, Alkaline Phosphatase 53, Troponin I 0.061H, Pro- B-Type Natriuretic Peptide 4638H, Total Protein 6.3L, Albumin 2.5L, Globulin 3.8 , Albumin/Globulin Ratio 0.7L Current Medications Medications (Trade) Dose Ordered Sig/Tommy Route PRN Reason Start Time Stop Time Status Last Admin Dose Admin Albuterol/ Ipratropium (Albuterol/ Ipratropium) 3 ml Q4HRT HHN 07/15/18 03:00 07/20/18 02:59 07/16/18 07:12 Amiodarone HCl (Cordarone) 200 mg EVERY 12 HOURS ORAL 07/15/18 09:00 08/11/18 20:59 07/16/18 08:34 Apixaban (Eliquis) 5 mg BID ORAL 07/15/18 09:00 08/11/18 17:59 07/16/18 08:34 Atorvastatin Calcium (Lipitor) 80 mg BEDTIME ORAL 07/15/18 21:00 08/11/18 20:59 07/15/18 20:47 Bisacodyl (Dulcolax) 10 mg DAILYPRN PRN RECTAL Constipation 07/15/18 02:00 08/11/18 01:59 Carvedilol (Coreg) 6.25 mg EVERY 12 HOURS ORAL 07/15/18 09:00 08/11/18 20:59 07/16/18 08:34 Clonidine HCl (Catapres Tab) 0.1 mg Q6H PRN ORAL For High Blood Pressure 07/15/18 02:00 08/11/18 01:59 Docusate Sodium (Colace) 100 mg TID ORAL 07/15/18 09:00 08/12/18 17:59 07/16/18 08:35 Famotidine (Pepcid) 20 mg BID ORAL 07/15/18 09:00 08/12/18 08:59 07/16/18 08:34 Furosemide (Lasix) 20 mg DAILY IV 07/15/18 12:00 08/14/18 11:59 07/16/18 08:35 Hydralazine HCl (Apresoline) 5 mg Q2H PRN IV SBP>160 07/15/18 02:45 08/14/18 00:44 07/15/18 05:24 Magnesium Sulfate 100 ml @ 100 mls/hr Q1H IVPB 07/16/18 12:00 07/16/18 13:59 Oseltamivir Phosphate (Tamiflu) 30 mg DAILY ORAL 07/15/18 09:00 07/18/18 08:59 07/16/18 08:35 Promethazine HCl/ Codeine (Phenergan with Codeine) 5 ml Q4H PRN ORAL For Cough 07/15/18 11:00 08/14/18 10:59 Tamsulosin HCl (Flomax) 0.4 mg Q12HR ORAL 07/15/18 09:00 08/12/18 13:44 07/16/18 08:36 Phuc Freitas MD Jul 16, 2018 11:42
[2018-07-16 12:00] VITALS: BP 142/61
--- NOTE | 2018-07-16 14:10 | Cardiology Report ---
APPROVED REPORT EXAM: Two-dimensional and M-mode echocardiogram with Doppler and color Doppler. INDICATION Congestive Heart Failure M-Mode DIMENSIONS IVSd1.3 (0.7-1.1cm)Left Atrium (MM)3.7 (1.6-4.0cm) LVDd4.8 (3.5-5.6cm)Aortic Root2.4 (2.0-3.7cm) PWd1.3 (0.7-1.1cm)Aortic Cusp Exc.1.5 (1.5-2.0cm) LVDs3.3 (2.5-4.0cm) PWs1.8 cm Normal left ventricular chamber size. Global left ventricular hypokinesis. Left ventricular ejection fraction estimated to be 40 %. Mild left ventricular hypertrophy. Anterior Echo-free space, may be due to pericardial fat or effusion. All other cardiac chamber sizes are within normal limits. Mild focal aortic valve sclerosis with adequate cusp excursion. Mildly thickened mitral valve leaflets with normal excursion. Mild mitral annulus and aortic root calcification. Normal pulmonic valve structure. Normal tricuspid valve structure. IVC at normal size with physiologic collapse. A color flow and spectral Doppler study was performed and revealed: Mild to moderate aortic regurgitation. Moderate mitral regurgitation. Normal left ventricular diastolic function. Mild tricuspid regurgitation. Tricuspid systolic velocities suggests peak right ventricular systolic pressure of 85 mmHg, consistent with severe pulmonary hypertension. Mild pulmonic regurgitation present.
--- NOTE | 2018-07-16 15:09 | NUR ---
NURSE NOTES: dr. Freitas saw pt, Magnesium 1.6, 2gm Mag given as ordered, ambulate with PT, continue monitoring.
[2018-07-16 16:00] VITALS: BP 129/55
--- NOTE | 2018-07-16 19:08 | NUR ---
HAND-OFF: Report given to JAKE PALMER, pt resting, no distress.
--- NOTE | 2018-07-16 19:08 | NUR ---
NURSE NOTES: Received report from Sudheer Jimenez RN. Patient is asleep in bed, arousable to name and light shaking, A/O x4. No s/s of acute distress noted at this time. Sinus rhythm on cardiac specialist. Saturating well on 2L O2 via nasal cannula. Right AC 20g IV saline lock, intact and patent. Bed locked in lowest position with side rails up x2. Call light left within reach. Will continue to monitor.
--- NOTE | 2018-07-16 19:21 | Nephrology Progress Note ---
Assessment/Plan Problem List: (1) Renal failure (ARF), acute on chronic (2) Pacemaker (3) CHF (congestive heart failure) Assessment: cardiomyopathy Assessment renal failure: Likely acute on chronic Dehydration Diarrhea Influenza A Pacemaker Plan lasix for chf Urine studies Monitor renal parameters Avoid Nephrotoxics flomax 2D echo Global left ventricular hypokinesis. Left ventricular ejection fraction estimated to be 40 %. Subjective ROS Limited/Unobtainable: No Constitutional: Reports: malaise Objective Objective Last 24 Hour Vital Signs Date Time Temp Pulse Resp B/P (MAP) Pulse Ox O2 Delivery O2 Flow Rate FiO2 07/16/18 16:21 62 18 100 Nasal Cannula 2.0 28 07/16/18 16:11 69 18 100 Nasal Cannula 2.0 28 07/16/18 16:00 Nasal Cannula 2.0 07/16/18 16:00 60 07/16/18 16:00 98.1 63 20 129/55 (79) 100 07/16/18 12:00 98.8 66 22 142/61 (88) 98 07/16/18 12:00 66 07/16/18 12:00 Nasal Cannula 2.0 07/16/18 11:51 64 18 100 Nasal Cannula 2.0 28 07/16/18 11:41 64 18 98 Nasal Cannula 2.0 28 07/16/18 08:34 62 157/62 07/16/18 08:00 Nasal Cannula 2.0 07/16/18 08:00 97.9 62 18 157/62 (93) 100 07/16/18 08:00 68 07/16/18 07:22 68 18 97 Nasal Cannula 2.0 28 07/16/18 07:13 62 16 Nasal Cannula 2.0 28 07/16/18 07:13 Nasal Cannula 2.0 28 07/16/18 07:12 68 18 94 Nasal Cannula 2.0 28 07/16/18 07:12 94 Nasal Cannula 2.0 28 07/16/18 04:00 Nasal Cannula 2.0 07/16/18 04:00 98.5 62 20 130/57 (81) 99 07/16/18 03:20 72 07/16/18 02:39 71 18 99 Nasal Cannula 2.0 28 07/16/18 00:46 71 18 100 Nasal Cannula 2.0 28 07/16/18 00:36 69 18 100 Nasal Cannula 2.0 28 07/16/18 00:00 Nasal Cannula 2.0 07/16/18 00:00 99.3 70 20 126/67 (86) 100 07/15/18 23:31 64 07/15/18 21:17 66 16 100 Nasal Cannula 2.0 28 07/15/18 21:07 63 16 Nasal Cannula 2.0 28 07/15/18 21:07 63 16 100 Nasal Cannula 2.0 28 07/15/18 21:07 Nasal Cannula 2.0 28 07/15/18 21:07 100 Nasal Cannula 2.0 28 07/15/18 20:47 64 122/57 07/15/18 20:00 99.4 64 20 122/57 (78) 99 07/15/18 20:00 Nasal Cannula 2.0 07/15/18 19:30 62 Intake and Output 07/15/18 07/16/18 19:00 07:00 Intake Total 540 ml 120 ml Output Total 1100 ml 800 ml Balance -560 ml -680 ml Intake Oral 540 ml 120 ml Output Urine Total 1100 ml 800 ml Laboratory Tests 07/16/18 03:25: White Blood Count 8.2, Red Blood Count 3.98L, Hemoglobin 11.5L, Hematocrit 34.8L , Mean Corpuscular Volume 87, Mean Corpuscular Hemoglobin 28.8, Mean Corpuscular Hemoglobin Concent 32.9, Red Cell Distribution Width 13.1, Platelet Count 97L, Mean Platelet Volume 11.2H, Neutrophils (%) (Auto) , Lymphocytes (%) (Auto) , Monocytes (%) (Auto) , Eosinophils (%) (Auto) , Basophils (%) (Auto) , Sodium Level 138, Potassium Level 3.6, Chloride Level 102, Carbon Dioxide Level 26, Anion Gap 10, Blood Urea Nitrogen 16, Creatinine 1.7H, Estimat Glomerular Filtration Rate , Glucose Level 92, Hemoglobin A1c 6.0, Uric Acid 3.8, Calcium Level 7.8L, Phosphorus Level 2.7, Magnesium Level 1.6L, Total Bilirubin 1.1H, Direct Bilirubin 0.3, Aspartate Amino Transf (AST/SGOT) 33, Alanine Aminotransferase (ALT/SGPT) 25, Alkaline Phosphatase 53, Troponin I 0.061H, Pro- B-Type Natriuretic Peptide 4638H, Total Protein 6.3L, Albumin 2.5L, Globulin 3.8 , Albumin/Globulin Ratio 0.7L Height (Feet): 5 Height (Inches): 8.00 Weight (Pounds): 182 General Appearance: no apparent distress Cardiovascular: normal rate Respiratory/Chest: decreased breath sounds Abdomen: soft Objective no change Sunil Gill MD Jul 16, 2018 19:21
[2018-07-16 20:00] VITALS: BP 137/59
[2018-07-16] MEDS: Atorvastatin 80mg tab ORAL SCH (20:48)
--- NOTE | 2018-07-16 22:26 | Consultation ---
History of Present Illness General Chief Complaint: Diarrhea Present Illness Allergies: Coded Allergies: No Known Allergies (Unverified , 02/08/17) Medication History Scheduled Amiodarone Hcl* (Amiodarone Hcl*), 200 MG ORAL EVERY 12 HOURS, (Reported) Atorvastatin (Lipitor), 80 MG ORAL BEDTIME, (Reported) Carvedilol* (Carvedilol*), 3.125 MG ORAL EVERY 12 HOURS, (Reported) Lactulose (Lactulose*), 30 ML ORAL DAILY Naproxen (Naproxen), 250 MG PO BID, (Reported) Warfarin Sod* (Coumadin*), 2 MG ORAL DAILY, (Reported) Miscellaneous Medications Apixaban (Eliquis), 5 MG PO, (Reported) Bisacodyl (Dulcolax), 10 MG RC, (Reported) Famotidine (Pepcid Ac), 20 MG PO, (Reported) [place]-3 Fatty Acids/Fish Oil ([place] 3 1,000 Mg Softgel), 1 EACH PO, (Reported) Patient History Healthcare decision maker Resuscitation status Chemical (Meds Only) Advanced Directive on File Yes Physical Exam Last 24 Hour Vital Signs Date Time Temp Pulse Resp B/P (MAP) Pulse Ox O2 Delivery O2 Flow Rate FiO2 07/16/18 20:49 68 137/59 07/16/18 20:00 98 Nasal Cannula 2.0 28 07/16/18 20:00 99.1 69 18 137/59 (85) 100 07/16/18 20:00 Nasal Cannula 2.0 07/16/18 20:00 68 18 Nasal Cannula 2.0 28 07/16/18 20:00 Nasal Cannula 2.0 28 07/16/18 20:00 72 18 100 Nasal Cannula 2.0 28 07/16/18 19:50 68 18 98 Nasal Cannula 2.0 28 07/16/18 19:36 66 07/16/18 16:21 62 18 100 Nasal Cannula 2.0 28 07/16/18 16:11 69 18 100 Nasal Cannula 2.0 28 07/16/18 16:00 Nasal Cannula 2.0 07/16/18 16:00 60 07/16/18 16:00 98.1 63 20 129/55 (79) 100 07/16/18 12:00 98.8 66 22 142/61 (88) 98 07/16/18 12:00 66 2/19/19 12:00 Nasal Cannula 2.0 07/16/18 11:51 64 18 100 Nasal Cannula 2.0 28 07/16/18 11:41 64 18 98 Nasal Cannula 2.0 28 07/16/18 08:34 62 157/62 07/16/18 08:00 Nasal Cannula 2.0 07/16/18 08:00 97.9 62 18 157/62 (93) 100 07/16/18 08:00 68 07/16/18 07:22 68 18 97 Nasal Cannula 2.0 28 07/16/18 07:13 62 16 Nasal Cannula 2.0 28 07/16/18 07:13 Nasal Cannula 2.0 28 07/16/18 07:12 68 18 94 Nasal Cannula 2.0 28 07/16/18 07:12 94 Nasal Cannula 2.0 28 07/16/18 04:00 Nasal Cannula 2.0 07/16/18 04:00 98.5 62 20 130/57 (81) 99 07/16/18 03:20 72 07/16/18 02:39 71 18 99 Nasal Cannula 2.0 28 07/16/18 00:46 71 18 100 Nasal Cannula 2.0 28 07/16/18 00:36 69 18 100 Nasal Cannula 2.0 28 07/16/18 00:00 Nasal Cannula 2.0 07/16/18 00:00 99.3 70 20 126/67 (86) 100 07/15/18 23:31 64 Intake and Output 07/15/18 07/16/18 18:59 06:59 Intake Total 540 ml 120 ml Output Total 1100 ml 800 ml Balance -560 ml -680 ml Intake Oral 540 ml 120 ml Output Urine Total 1100 ml 800 ml Laboratory Tests Test 07/16/18 03:25 White Blood Count 8.2 K/UL (4.8-10.8) Red Blood Count 3.98 M/UL (4.70-6.10) L Hemoglobin 11.5 G/DL (14.2-18.0) L Hematocrit 34.8 % (42.0-52.0) L Mean Corpuscular Volume 87 FL (80-99) Mean Corpuscular Hemoglobin 28.8 PG (27.0-31.0) Mean Corpuscular Hemoglobin Concent 32.9 G/DL (32.0-36.0) Red Cell Distribution Width 13.1 % (11.6-14.8) Platelet Count 97 K/UL (150-450) L Mean Platelet Volume 11.2 FL (6.5-10.1) H Neutrophils (%) (Auto) % (45.0-75.0) Lymphocytes (%) (Auto) % (20.0-45.0) Monocytes (%) (Auto) % (1.0-10.0) Eosinophils (%) (Auto) % (0.0-3.0) Basophils (%) (Auto) % (0.0-2.0) Sodium Level 138 MMOL/L (136-145) Potassium Level 3.6 MMOL/L (3.5-5.1) Chloride Level 102 MMOL/L (98-107) Carbon Dioxide Level 26 MMOL/L (21-32) Anion Gap 10 mmol/L (5-15) Blood Urea Nitrogen 16 mg/dL (7-18) Creatinine 1.7 MG/DL (0.55-1.30) H Estimat Glomerular Filtration Rate mL/min (>60) Glucose Level 92 MG/DL (74-106) Hemoglobin A1c 6.0 % (4.3-6.0) Uric Acid 3.8 MG/DL (2.6-7.2) Calcium Level 7.8 MG/DL (8.5-10.1) L Phosphorus Level 2.7 MG/DL (2.5-4.9) Magnesium Level 1.6 MG/DL (1.8-2.4) L Total Bilirubin 1.1 MG/DL (0.2-1.0) H Direct Bilirubin 0.3 MG/DL (0.0-0.3) Aspartate Amino Transf (AST/SGOT) 33 U/L (15-37) Alanine Aminotransferase (ALT/SGPT) 25 U/L (12-78) Alkaline Phosphatase 53 U/L (46-116) Troponin I 0.061 ng/mL (0.000-0.056) Pro-B-Type Natriuretic Peptide 4638 pg/mL (0-125) H Total Protein 6.3 G/DL (6.4-8.2) L Albumin 2.5 G/DL (3.4-5.0) L Globulin 3.8 g/dL Albumin/Globulin Ratio 0.7 (1.0-2.7) L Height (Feet): 5 Height (Inches): 8.00 Weight (Pounds): 182 Medications Current Medications Medications (Trade) Dose Ordered Sig/Tommy Route PRN Reason Start Time Stop Time Status Last Admin Dose Admin Albuterol/ Ipratropium (Albuterol/ Ipratropium) 3 ml Q4HRT HHN 07/15/18 03:00 07/20/18 02:59 07/16/18 20:39 Amiodarone HCl (Cordarone) 200 mg EVERY 12 HOURS ORAL 07/15/18 09:00 08/11/18 20:59 07/16/18 20:48 Apixaban (Eliquis) 2.5 mg BID ORAL 07/16/18 18:00 08/15/18 17:59 07/16/18 17:45 Atorvastatin Calcium (Lipitor) 80 mg BEDTIME ORAL 07/15/18 21:00 08/11/18 20:59 07/16/18 20:48 Bisacodyl (Dulcolax) 10 mg DAILYPRN PRN RECTAL Constipation 07/15/18 02:00 08/11/18 01:59 Carvedilol (Coreg) 6.25 mg EVERY 12 HOURS ORAL 07/15/18 09:00 08/11/18 20:59 07/16/18 20:49 Clonidine HCl (Catapres Tab) 0.1 mg Q6H PRN ORAL For High Blood Pressure 07/15/18 02:00 08/11/18 01:59 Docusate Sodium (Colace) 100 mg TID ORAL 07/15/18 09:00 08/12/18 17:59 07/16/18 17:45 Famotidine (Pepcid) 20 mg BID ORAL 07/15/18 09:00 08/12/18 08:59 07/16/18 17:45 Furosemide (Lasix) 20 mg DAILY IV 07/15/18 12:00 08/14/18 11:59 07/16/18 08:35 Hydralazine HCl (Apresoline) 5 mg Q2H PRN IV SBP>160 07/15/18 02:45 08/14/18 00:44 07/15/18 05:24 Oseltamivir Phosphate (Tamiflu) 30 mg DAILY ORAL 07/15/18 09:00 07/18/18 08:59 07/16/18 08:35 Promethazine HCl/ Codeine (Phenergan with Codeine) 5 ml Q4H PRN ORAL For Cough 07/15/18 11:00 08/14/18 10:59 Tamsulosin HCl (Flomax) 0.4 mg Q12HR ORAL 07/15/18 09:00 08/12/18 13:44 07/16/18 20:48 Assessment/Plan Assessment/Plan Hematology/Oncology Consultation Requesting MD: Vega Pace Date of Service: 07/16/18 Reason for consultation: Anemia and Thrombocytopenia HPI: This is a 83-year-old male with history of CAD with 1 stent, pacemaker, hypertension, presented to [facility] with CC of diarrhea, then he was found to have dyspnea and cough with greenish sputum. Denies any palpitations or shortness of breath. I was called to evaluate his pulmonary symptoms. Hematology /Oncology was consulted for Anemia and Thrombocytopenia, Hgb 11 and plt 97. Allergies: Coded Allergies: No Known Allergies (Unverified , 02/08/17) Medication History Scheduled Amiodarone Hcl* (Amiodarone Hcl*), 200 MG ORAL EVERY 12 HOURS, (Reported) Atorvastatin (Lipitor), 80 MG ORAL BEDTIME, (Reported) Carvedilol* (Carvedilol*), 3.125 MG ORAL EVERY 12 HOURS, (Reported) Lactulose (Lactulose*), 30 ML ORAL DAILY Naproxen (Naproxen), 250 MG PO BID, (Reported) Warfarin Sod* (Coumadin*), 2 MG ORAL DAILY, (Reported) Miscellaneous Medications Apixaban (Eliquis), 5 MG PO, (Reported) Bisacodyl (Dulcolax), 10 MG RC, (Reported) Famotidine (Pepcid Ac), 20 MG PO, (Reported) [place]-3 Fatty Acids/Fish Oil ([place] 3 1,000 Mg Softgel), 1 EACH PO, (Reported) Patient History Healthcare decision maker Resuscitation status Chemical (Meds Only) Advanced Directive on File Yes Past Medical/Surgical History Past Medical/Surgical History: (1) Pacemaker (2) Stented coronary artery (3) Atrial fibrillation (4) CAD (coronary artery disease) Review of Systems Respiratory: Reports: shortness of breath All Other Systems: negative except mentioned in HPI Physical Exam General Appearance: WD/WN Lines, tubes and drains: peripheral HEENT: normocephalic, atraumatic Neck: non-tender, normal alignment Respiratory/Chest: chest wall non-tender, lungs clear Cardiovascular/Chest: normal peripheral pulses, normal rate Abdomen: normal bowel sounds, non tender Genitourinary/Rectal: normal genital exam, heme negative stool Extremities: normal range of motion, non-tender Skin Exam: normal pigmentation 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 Last 24 Hour Vital Signs Date Time Temp Pulse Resp B/P (MAP) Pulse Ox O2 Delivery O2 Flow Rate FiO2 07/15/18 10:43 80 18 100 Nasal Cannula 2.0 28 07/15/18 10:36 75 16 97 Nasal Cannula 2.0 28 07/15/18 09:06 76 126/57 07/15/18 08:00 98.1 76 26 126/57 (80) 95 07/15/18 08:00 Nasal Cannula 2.0 07/15/18 08:00 75 07/15/18 07:14 78 18 100 Nasal Cannula 2.0 28 07/15/18 07:05 73 16 Nasal Cannula 2.0 28 07/15/18 07:05 Nasal Cannula 2.0 28 07/15/18 07:05 73 16 100 Nasal Cannula 2.0 28 07/15/18 07:05 100 Nasal Cannula 2.0 28 07/15/18 06:00 142/69 (93) 07/15/18 05:24 171/69 07/15/18 04:00 71 07/15/18 04:00 Nasal Cannula 2.0 07/15/18 04:00 98.1 62 24 167/63 (97) 98 07/15/18 03:31 73 18 100 Nasal Cannula 2.0 28 07/15/18 03:24 73 18 96 Nasal Cannula 2.0 28 07/15/18 02:38 176/75 07/15/18 02:31 64 07/15/18 02:00 98.4 61 20 176/75 (108) 92 07/15/18 02:00 Nasal Cannula 2.0 07/15/18 00:38 67 20 99 Nasal Cannula 2.0 28 07/15/18 00:30 68 16 95 Nasal Cannula 2.0 28 07/15/18 00:00 97.6 72 22 195/82 (119) 92 07/14/18 21:30 64 162/65 (97) 07/14/18 21:25 69 18 Room Air 21 07/14/18 21:00 Nasal Cannula 2.0 07/14/18 20:13 71 189/80 07/14/18 20:04 189/80 07/14/18 20:00 97.8 71 19 189/80 (116) 93 07/14/18 16:00 97.5 62 19 144/69 (94) 100 07/14/18 12:00 98.0 70 20 147/68 (94) 100 Intake and Output 07/14/18 07/15/18 19:00 07:00 Intake Total 1225 ml 615 ml Output Total 1600 ml Balance 1225 ml -985 ml Intake Oral 400 ml 240 ml IV Total 825 ml 375 ml Output Urine Total 1600 ml Laboratory Tests Test 07/14/18 20:30 07/15/18 00:30 Troponin I 0.075 ng/mL (0.000-0.056) Arterial Blood pH 7.348 (7.350-7.450) Arterial Blood Partial Pressure CO2 38.8 mmHg (35.0-45.0) Arterial Blood Partial Pressure O2 89.5 mmHg (75.0-100.0) Arterial Blood HCO3 20.8 mmol/L (22.0-26.0) L Arterial Blood Oxygen Saturation 96.0 % (95-100) Arterial Blood Base Excess -4.4 (-2-2) L Lobo Test Positive Height (Feet): 5 Height (Inches): 8.00 Weight (Pounds): 182 Medications Current Medications Medications (Trade) Dose Ordered Sig/Tommy Route PRN Reason Start Time Stop Time Status Last Admin Dose Admin Albuterol/ Ipratropium (Albuterol/ Ipratropium) 3 ml Q4HRT HHN 07/15/18 03:00 07/20/18 02:59 07/15/18 10:36 Amiodarone HCl (Cordarone) 200 mg EVERY 12 HOURS ORAL 07/15/18 09:00 08/11/18 20:59 07/15/18 09:06 Apixaban (Eliquis) 5 mg BID ORAL 07/15/18 09:00 08/11/18 17:59 07/15/18 09:07 Atorvastatin Calcium (Lipitor) 80 mg BEDTIME ORAL 07/15/18 21:00 08/11/18 20:59 Bisacodyl (Dulcolax) 10 mg DAILYPRN PRN RECTAL Constipation 07/15/18 02:00 08/11/18 01:59 Carvedilol (Coreg) 6.25 mg EVERY 12 HOURS ORAL 07/15/18 09:00 08/11/18 20:59 07/15/18 09:06 Clonidine HCl (Catapres Tab) 0.1 mg Q6H PRN ORAL For High Blood Pressure 07/15/18 02:00 08/11/18 01:59 Docusate Sodium (Colace) 100 mg TID ORAL 07/15/18 09:00 08/12/18 17:59 07/15/18 09:06 Famotidine (Pepcid) 20 mg BID ORAL 07/15/18 09:00 08/12/18 08:59 07/15/18 09:06 Furosemide (Lasix) 20 mg DAILY IV 07/15/18 12:00 08/14/18 11:59 Hydralazine HCl (Apresoline) 5 mg Q2H PRN IV SBP>160 07/15/18 02:45 08/14/18 00:44 07/15/18 05:24 Oseltamivir Phosphate (Tamiflu) 30 mg DAILY ORAL 07/15/18 09:00 07/18/18 08:59 07/15/18 09:07 Promethazine HCl/ Codeine (Phenergan with Codeine) 5 ml Q4H PRN ORAL For Cough 07/15/18 11:00 08/14/18 10:59 UNV Tamsulosin HCl (Flomax) 0.4 mg Q12HR ORAL 07/15/18 09:00 08/12/18 13:44 07/15/18 09:07 Assessment/Plan # Anemia of chronic disease (or of iron deficiency) due to underlying chronic medical issues, multifactorial --> Anemia workup has been ordered --> No evidence of hemolysis is noted, peripheral smear has been reviewed. --> Hgb goal >7. Transfuse prn. --> Epogen or iron at this time is not particularly indicated --> Medications have been reviewed # Thrombocytopenia - potential causes multifactorial, evaluate liver and viral etiologies to begin, also could be related to underlying medications patient has received. --> Hep panel and HIV ordered --> US abd to evaluate for cirrhosis and hsm ordered --> Peripheral smear ordered to evaluate for blasts /schistocytes --> abx and other meds have been reviewed --> ok for ppx if plt >50k w/ either heparin or lovenox --> Transfuse if Plt < 20k and fever, or if Plt < 10k without fever # Influenza, pneumonia, continue Tamiflu continue droplet precaution # Acute heart failure , require cardiac cath once influenza virus is resolved. -->appreciate cardiology recs # PAF, on Eliquis. # Permanent pacemaker, normal function. # Acute versus chronic renal fail, Avoid Nephrotoxics, flomax, 2D echo Global left ventricular hypokinesis, Left ventricular ejection fraction estimated to be 40 %. -->appreciate nephro recs # Dehydration, diuresed 4 liters so far, watch BUN/creatinine -->appreciate pulm recs The timing of this note does not necessarily reflect the time of the patient was seen. Greatly appreciate consultation! Jez Harp MD Jul 16, 2018 22:26
--- NOTE | 2018-07-16 23:45 | Cardiology Progress Note ---
Assessment/Plan Assessment/Plan 1. Acute heart failure with normal EF by echo, pseudo-normal LV physiology suggestive of moderately elevated LAP, continue lasix, ? ischemic CM given elevated troponin I levels, require cardiac cath once influenza virus is resolved. 2. Severe pulmonary hypertension, ? etiology, some contribution from left heart failure, ? other etiologies. Requires right heart catheterization to verify pulmonary HTN and to evaluate pulmonary vein pressure, i.e PCWP. 3. Influenza pneumonitis 4. PAF, on Eliquis. 5. Permanent pacemaker, normal function. Subjective Subjective Sinus rhythm at rate of 68. Objective Last 24 Hour Vital Signs Date Time Temp Pulse Resp B/P (MAP) Pulse Ox O2 Delivery O2 Flow Rate FiO2 07/16/18 20:49 68 137/59 07/16/18 20:00 98 Nasal Cannula 2.0 28 07/16/18 20:00 99.1 69 18 137/59 (85) 100 07/16/18 20:00 Nasal Cannula 2.0 07/16/18 20:00 68 18 Nasal Cannula 2.0 28 07/16/18 20:00 Nasal Cannula 2.0 28 07/16/18 20:00 72 18 100 Nasal Cannula 2.0 28 07/16/18 19:50 68 18 98 Nasal Cannula 2.0 28 07/16/18 19:36 66 07/16/18 16:21 62 18 100 Nasal Cannula 2.0 28 07/16/18 16:11 69 18 100 Nasal Cannula 2.0 28 07/16/18 16:00 Nasal Cannula 2.0 07/16/18 16:00 60 07/16/18 16:00 98.1 63 20 129/55 (79) 100 07/16/18 12:00 98.8 66 22 142/61 (88) 98 07/16/18 12:00 66 07/16/18 12:00 Nasal Cannula 2.0 07/16/18 11:51 64 18 100 Nasal Cannula 2.0 28 07/16/18 11:41 64 18 98 Nasal Cannula 2.0 28 07/16/18 08:34 62 157/62 07/16/18 08:00 Nasal Cannula 2.0 07/16/18 08:00 97.9 62 18 157/62 (93) 100 07/16/18 08:00 68 07/16/18 07:22 68 18 97 Nasal Cannula 2.0 28 07/16/18 07:13 62 16 Nasal Cannula 2.0 28 07/16/18 07:13 Nasal Cannula 2.0 28 07/16/18 07:12 68 18 94 Nasal Cannula 2.0 28 07/16/18 07:12 94 Nasal Cannula 2.0 28 07/16/18 04:00 Nasal Cannula 2.0 07/16/18 04:00 98.5 62 20 130/57 (81) 99 07/16/18 03:20 72 07/16/18 02:39 71 18 99 Nasal Cannula 2.0 28 07/16/18 00:46 71 18 100 Nasal Cannula 2.0 28 07/16/18 00:36 69 18 100 Nasal Cannula 2.0 28 07/16/18 00:00 Nasal Cannula 2.0 07/16/18 00:00 99.3 70 20 126/67 (86) 100 Intake and Output 07/15/18 07/16/18 18:59 06:59 Intake Total 540 ml 120 ml Output Total 1100 ml 800 ml Balance -560 ml -680 ml Intake Oral 540 ml 120 ml Output Urine Total 1100 ml 800 ml 2D Echo: Borderline LVEF ~45-50%, Pseudo-normal LV physio, Sev TR/RVSP ~80 Laboratory Tests Test 07/16/18 03:25 White Blood Count 8.2 K/UL (4.8-10.8) Red Blood Count 3.98 M/UL (4.70-6.10) L Hemoglobin 11.5 G/DL (14.2-18.0) L Hematocrit 34.8 % (42.0-52.0) L Mean Corpuscular Volume 87 FL (80-99) Mean Corpuscular Hemoglobin 28.8 PG (27.0-31.0) Mean Corpuscular Hemoglobin Concent 32.9 G/DL (32.0-36.0) Red Cell Distribution Width 13.1 % (11.6-14.8) Platelet Count 97 K/UL (150-450) L Mean Platelet Volume 11.2 FL (6.5-10.1) H Neutrophils (%) (Auto) % (45.0-75.0) Lymphocytes (%) (Auto) % (20.0-45.0) Monocytes (%) (Auto) % (1.0-10.0) Eosinophils (%) (Auto) % (0.0-3.0) Basophils (%) (Auto) % (0.0-2.0) Sodium Level 138 MMOL/L (136-145) Potassium Level 3.6 MMOL/L (3.5-5.1) Chloride Level 102 MMOL/L (98-107) Carbon Dioxide Level 26 MMOL/L (21-32) Anion Gap 10 mmol/L (5-15) Blood Urea Nitrogen 16 mg/dL (7-18) Creatinine 1.7 MG/DL (0.55-1.30) H Estimat Glomerular Filtration Rate mL/min (>60) Glucose Level 92 MG/DL (74-106) Hemoglobin A1c 6.0 % (4.3-6.0) Uric Acid 3.8 MG/DL (2.6-7.2) Calcium Level 7.8 MG/DL (8.5-10.1) L Phosphorus Level 2.7 MG/DL (2.5-4.9) Magnesium Level 1.6 MG/DL (1.8-2.4) L Total Bilirubin 1.1 MG/DL (0.2-1.0) H Direct Bilirubin 0.3 MG/DL (0.0-0.3) Aspartate Amino Transf (AST/SGOT) 33 U/L (15-37) Alanine Aminotransferase (ALT/SGPT) 25 U/L (12-78) Alkaline Phosphatase 53 U/L (46-116) Troponin I 0.061 ng/mL (0.000-0.056) Pro-B-Type Natriuretic Peptide 4638 pg/mL (0-125) H Total Protein 6.3 G/DL (6.4-8.2) L Albumin 2.5 G/DL (3.4-5.0) L Globulin 3.8 g/dL Albumin/Globulin Ratio 0.7 (1.0-2.7) L Microbiology Date/Time Source Procedure Growth Status 07/15/18 18:00 Sputum Gram Stain - Final Resulted 07/15/18 18:00 Sputum Sputum Culture - Preliminary NO GROWTH Resulted Objective HEENT: Atraumatic and normocephalic. Anicteric. Pupils are equal, round, and reactive to light and accommodation. Extraocular muscles intact. NECK: JVP is less than 5 cm. No carotid bruits. Carotid upstrokes 2+ bilaterally. CARDIOVASCULAR: Normal S1, S2. There is 3/6 holosystolic murmur at the apex. LUNGS: Bibasilar crackles. ABDOMEN: Soft, nontender, nondistended. No hepatosplenomegaly. Positive bowel sounds. EXTREMITIES: No evidence of edema, clubbing, or cyanosis. Markie Moreland MD Jul 16, 2018 23:45
[2018-07-17] VITALS: BP 141/55
[2018-07-17] MEDS: Albuterol/Ipratropium 3ml neb HHN SCH ×5 (00:11→15:00)
[2018-07-17 04:00] VITALS: BP 112/68
--- NOTE | 2018-07-17 07:20 | NUR ---
HAND-OFF: Report given to Sudheer Jimenez RN and Radha Grady RN.
[2018-07-17 08:00] VITALS: BP 126/61
--- NOTE | 2018-07-17 08:15 | NUR ---
NURSE NOTES: Received Pt from Aislinn Gan RN. Pt asleep at the moment with no cardiopulmonary distress noted. Left chest pacemaker noted. HR currently 69 bpm on monitor. Pt is on 2 L O2 NC. Pt is on a regular diet by mouth and uses urinal to void. Skin is intact. R 20g AC noted. Bed is in lowest position. Side rails up x 2. Call light within reach.
[2018-07-17] MEDS: Docusate 100mg cap ORAL SCH ×2 (09:31→12:45)
[2018-07-17] MEDS: Tamsulosin 0.4mg cap ORAL SCH (09:31)
[2018-07-17] MEDS: Eliquis 2.5mg tablet ORAL SCH ×2 (09:32→11:59)
[2018-07-17] MEDS: Carvedilol 6.25mg Tab ORAL SCH (09:34)
[2018-07-17] MEDS: Amiodarone 200mg tab ORAL SCH (09:34)
--- NOTE | 2018-07-17 10:26 | Infectious Diseases Prog Note ---
Assessment/Plan Assessment/Plan A 1. influenza A URI, pneumonia 2. hypertension 3. renal failure improving 4. BPH 5. Acute CHF 6. Pulmonary hypertension P 1. discontinue Tamiflu 2. discontinue droplet precautions 3. will follow up clinically Subjective ROS Limited/Unobtainable: No Constitutional: Reports: no symptoms Respiratory: Reports: productive cough Cardiovascular: Reports: no symptoms Gastrointestinal/Abdominal: Reports: no symptoms Genitourinary: Reports: no symptoms Allergies: Coded Allergies: No Known Allergies (Unverified , 02/08/17) Objective Vital Signs Last 24 Hour Vital Signs Date Time Temp Pulse Resp B/P (MAP) Pulse Ox O2 Delivery O2 Flow Rate FiO2 07/17/18 09:34 75 126/61 07/17/18 08:00 64 07/17/18 08:00 Nasal Cannula 2.0 07/17/18 08:00 98.0 75 17 126/61 (82) 100 07/17/18 07:12 78 18 99 Nasal Cannula 2.0 28 07/17/18 07:01 67 18 99 Nasal Cannula 2.0 28 07/17/18 07:00 Nasal Cannula 2.0 28 07/17/18 07:00 99 Nasal Cannula 2.0 28 07/17/18 04:00 98.1 66 20 112/68 (83) 99 07/17/18 04:00 Nasal Cannula 2.0 07/17/18 03:55 64 18 95 Nasal Cannula 2.0 28 07/17/18 03:44 60 18 92 Nasal Cannula 2.0 28 07/17/18 03:20 92 07/17/18 00:15 71 18 100 Nasal Cannula 2.0 28 07/17/18 00:00 Nasal Cannula 2.0 07/17/18 00:00 98.1 68 20 141/55 (83) 99 07/17/18 00:00 69 18 100 Nasal Cannula 2.0 28 07/16/18 23:30 64 07/16/18 20:49 68 137/59 07/16/18 20:00 98 Nasal Cannula 2.0 28 07/16/18 20:00 99.1 69 18 137/59 (85) 100 07/16/18 20:00 Nasal Cannula 2.0 07/16/18 20:00 68 18 Nasal Cannula 2.0 28 07/16/18 20:00 Nasal Cannula 2.0 28 07/16/18 20:00 72 18 100 Nasal Cannula 2.0 28 07/16/18 19:50 68 18 98 Nasal Cannula 2.0 28 07/16/18 19:36 66 07/16/18 16:21 62 18 100 Nasal Cannula 2.0 28 07/16/18 16:11 69 18 100 Nasal Cannula 2.0 28 07/16/18 16:00 Nasal Cannula 2.0 07/16/18 16:00 60 07/16/18 16:00 98.1 63 20 129/55 (79) 100 07/16/18 12:00 98.8 66 22 142/61 (88) 98 07/16/18 12:00 66 07/16/18 12:00 Nasal Cannula 2.0 07/16/18 11:51 64 18 100 Nasal Cannula 2.0 28 07/16/18 11:41 64 18 98 Nasal Cannula 2.0 28 Height (Feet): 5 Height (Inches): 8.00 Weight (Pounds): 178 General Appearance: no acute distress HEENT: mucous membranes moist Respiratory/Chest: lungs clear Cardiovascular: normal rate Abdomen: soft, non tender Extremities: no edema Neurologic/Psychiatric: alert, oriented x 3, responsive Microbiology Date/Time Source Procedure Growth Status 07/15/18 18:00 Sputum Gram Stain - Final Complete 07/15/18 18:00 Sputum Sputum Culture - Final NORMAL UPPER RESPIRATORY SENAIT PRESENT Complete Laboratory Tests Test 07/17/18 10:08 07/17/18 10:15 Arterial Blood pH 7.465 (7.350-7.450) Arterial Blood Partial Pressure CO2 39.7 mmHg (35.0-45.0) Arterial Blood Partial Pressure O2 49.0 mmHg (75.0-100.0) Arterial Blood HCO3 27.9 mmol/L (22.0-26.0) H Arterial Blood Oxygen Saturation 84.9 % (95-100) *L Arterial Blood Base Excess 3.9 (-2-2) H Lobo Test Positive White Blood Count Pending Red Blood Count Pending Hemoglobin Pending Hematocrit Pending Mean Corpuscular Volume Pending Mean Corpuscular Hemoglobin Pending Mean Corpuscular Hemoglobin Concent Pending Red Cell Distribution Width Pending Platelet Count Pending Mean Platelet Volume Pending Neutrophils (%) (Auto) Pending Lymphocytes (%) (Auto) Pending Monocytes (%) (Auto) Pending Eosinophils (%) (Auto) Pending Basophils (%) (Auto) Pending Sodium Level Pending Potassium Level Pending Chloride Level Pending Carbon Dioxide Level Pending Blood Urea Nitrogen Pending Creatinine Pending Estimat Glomerular Filtration Rate Pending Glucose Level Pending Calcium Level Pending Current Medications Medications (Trade) Dose Ordered Sig/Tommy Route PRN Reason Start Time Stop Time Status Last Admin Dose Admin Albuterol/ Ipratropium (Albuterol/ Ipratropium) 3 ml Q4HRT HHN 07/15/18 03:00 07/20/18 02:59 07/17/18 07:00 Amiodarone HCl (Cordarone) 200 mg EVERY 12 HOURS ORAL 07/15/18 09:00 08/11/18 20:59 07/17/18 09:34 Apixaban (Eliquis) 2.5 mg BID ORAL 07/16/18 18:00 08/15/18 17:59 07/16/18 17:45 Atorvastatin Calcium (Lipitor) 80 mg BEDTIME ORAL 07/15/18 21:00 08/11/18 20:59 07/16/18 20:48 Bisacodyl (Dulcolax) 10 mg DAILYPRN PRN RECTAL Constipation 07/15/18 02:00 08/11/18 01:59 Carvedilol (Coreg) 6.25 mg EVERY 12 HOURS ORAL 07/15/18 09:00 08/11/18 20:59 07/17/18 09:34 Clonidine HCl (Catapres Tab) 0.1 mg Q6H PRN ORAL For High Blood Pressure 07/15/18 02:00 08/11/18 01:59 Docusate Sodium (Colace) 100 mg TID ORAL 07/15/18 09:00 08/12/18 17:59 07/17/18 09:31 Famotidine (Pepcid) 20 mg BID ORAL 07/15/18 09:00 08/12/18 08:59 07/17/18 09:31 Furosemide (Lasix) 20 mg DAILY IV 07/15/18 12:00 08/14/18 11:59 07/16/18 08:35 Hydralazine HCl (Apresoline) 5 mg Q2H PRN IV SBP>160 07/15/18 02:45 08/14/18 00:44 07/15/18 05:24 Oseltamivir Phosphate (Tamiflu) 30 mg DAILY ORAL 07/15/18 09:00 07/18/18 08:59 07/17/18 09:00 Promethazine HCl/ Codeine (Phenergan with Codeine) 5 ml Q4H PRN ORAL For Cough 07/15/18 11:00 08/14/18 10:59 Tamsulosin HCl (Flomax) 0.4 mg Q12HR ORAL 07/15/18 09:00 08/12/18 13:44 07/17/18 09:31 Adrian Zambrano MD Jul 17, 2018 10:26
[2018-07-17 10:27] LABS: BASOPHILS % (AUTO) 0.4 % (0.0-2.0); EOSINOPHILS % (AUTO) 0.1 % (0.0-3.0); HEMATOCRIT 36.5 % (42.0-52.0); HEMOGLOBIN 11.9 G/DL (14.2-18.0); MEAN CORPUSCULAR VOLUME 88 FL (80-99); MONOCYTES % (AUTO) 9.4 % (1.0-10.0); PLATELET COUNT 123 K/UL (150-450); RED BLOOD COUNT 4.16 M/UL (4.70-6.10); WHITE BLOOD COUNT 9.6 K/UL (4.8-10.8)
[2018-07-17 10:40] LABS: ANION GAP 7 mmol/L (5-15); BLOOD UREA NITROGEN 14 mg/dL (7-18); CARBON DIOXIDE 29 MMOL/L (21-32); CHLORIDE 101 MMOL/L (98-107); CREATININE 1.6 MG/DL (0.55-1.30); POTASSIUM 3.9 MMOL/L (3.5-5.1); SODIUM 137 MMOL/L (136-145)
--- NOTE | 2018-07-17 10:45 | NUR ---
NURSE NOTES: Droplet isolation and oseltamivir d/c per Dr. Zambrano's order. ABG on RA results communicated with Dr. Freitas and instructed to remove NC to assess pt's current SaO2 on RA. Monitoring pt. Bed in lowest position. Side rails up x 3. Call light within reach
--- NOTE | 2018-07-17 11:19 | Pulmonology Progress Note ---
Assessment/Plan Problems: (1) Purulent bronchitis (2) CHF (congestive heart failure) (3) Renal failure (ARF), acute on chronic (4) Stented coronary artery (5) CAD (coronary artery disease) (6) HTN (hypertension) (7) Pacemaker Assessment/Plan diuresed 3.4 liters so far watch BUN/creatinine respiratory treatment monitor BP Physical therapy ordered dvt prophylaxis. pulse oximeter is 91%, will need home oxygen Subjective ROS Limited/Unobtainable: No Constitutional: Reports: no symptoms HEENT: Repors: no symptoms Allergies: Coded Allergies: No Known Allergies (Unverified , 02/08/17) Objective Last 24 Hour Vital Signs Date Time Temp Pulse Resp B/P (MAP) Pulse Ox O2 Delivery O2 Flow Rate FiO2 07/17/18 11:10 63 18 90 Room Air 21 07/17/18 09:34 75 126/61 07/17/18 08:00 64 07/17/18 08:00 Nasal Cannula 2.0 07/17/18 08:00 98.0 75 17 126/61 (82) 100 07/17/18 07:12 78 18 99 Nasal Cannula 2.0 28 07/17/18 07:01 67 18 99 Nasal Cannula 2.0 28 07/17/18 07:00 Nasal Cannula 2.0 28 07/17/18 07:00 99 Nasal Cannula 2.0 28 07/17/18 04:00 98.1 66 20 112/68 (83) 99 07/17/18 04:00 Nasal Cannula 2.0 07/17/18 03:55 64 18 95 Nasal Cannula 2.0 28 07/17/18 03:44 60 18 92 Nasal Cannula 2.0 28 07/17/18 03:20 92 07/17/18 00:15 71 18 100 Nasal Cannula 2.0 28 07/17/18 00:00 Nasal Cannula 2.0 07/17/18 00:00 98.1 68 20 141/55 (83) 99 07/17/18 00:00 69 18 100 Nasal Cannula 2.0 28 07/16/18 23:30 64 07/16/18 20:49 68 137/59 07/16/18 20:00 98 Nasal Cannula 2.0 28 07/16/18 20:00 99.1 69 18 137/59 (85) 100 07/16/18 20:00 Nasal Cannula 2.0 07/16/18 20:00 68 18 Nasal Cannula 2.0 28 07/16/18 20:00 Nasal Cannula 2.0 28 07/16/18 20:00 72 18 100 Nasal Cannula 2.0 28 07/16/18 19:50 68 18 98 Nasal Cannula 2.0 28 07/16/18 19:36 66 07/16/18 16:21 62 18 100 Nasal Cannula 2.0 28 07/16/18 16:11 69 18 100 Nasal Cannula 2.0 28 07/16/18 16:00 Nasal Cannula 2.0 07/16/18 16:00 60 07/16/18 16:00 98.1 63 20 129/55 (79) 100 07/16/18 12:00 98.8 66 22 142/61 (88) 98 07/16/18 12:00 66 07/16/18 12:00 Nasal Cannula 2.0 07/16/18 11:51 64 18 100 Nasal Cannula 2.0 28 07/16/18 11:41 64 18 98 Nasal Cannula 2.0 28 Intake and Output 07/16/18 07/17/18 19:00 07:00 Intake Total 570 ml 150 ml Output Total 870 ml 300 ml Balance -300 ml -150 ml Intake Oral 570 ml 150 ml Output Urine Total 870 ml 300 ml General Appearance: WD/WN HEENT: normocephalic Respiratory/Chest: chest wall non-tender, lungs clear Cardiovascular: normal peripheral pulses, normal rate Abdomen: soft, non tender, non distended Genitourinary: normal external genitalia Extremities: no clubbing Skin: no rash, no ulcers 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 Lymphatic: no neck adenopathy Musculoskeletal: normal muscle bulk Microbiology Date/Time Source Procedure Growth Status 07/15/18 18:00 Sputum Gram Stain - Final Complete 07/15/18 18:00 Sputum Sputum Culture - Final NORMAL UPPER RESPIRATORY SENAIT PRESENT Complete Laboratory Tests 07/17/18 10:08: Arterial Blood pH 7.465H, Arterial Blood Partial Pressure CO2 39.7, Arterial Blood Partial Pressure O2 49.0*L, Arterial Blood HCO3 27.9H, Arterial Blood Oxygen Saturation 84.9*L, Arterial Blood Base Excess 3.9H, Lobo Test Positive 07/17/18 10:15: White Blood Count 9.6, Red Blood Count 4.16L, Hemoglobin 11.9L, Hematocrit 36.5L , Mean Corpuscular Volume 88, Mean Corpuscular Hemoglobin 28.6, Mean Corpuscular Hemoglobin Concent 32.6, Red Cell Distribution Width 13.0, Platelet Count 123L, Mean Platelet Volume 10.9H, Neutrophils (%) (Auto) 81.0H, Lymphocytes (%) (Auto) 9.0L, Monocytes (%) (Auto) 9.4, Eosinophils (%) (Auto) 0.1, Basophils (%) (Auto) 0.4, Sodium Level 137, Potassium Level 3.9, Chloride Level 101, Carbon Dioxide Level 29, Anion Gap 7, Blood Urea Nitrogen 14, Creatinine 1.6H, Estimat Glomerular Filtration Rate , Glucose Level 119H, Calcium Level 8.0L Current Medications Medications (Trade) Dose Ordered Sig/Tommy Route PRN Reason Start Time Stop Time Status Last Admin Dose Admin Albuterol/ Ipratropium (Albuterol/ Ipratropium) 3 ml Q4HRT HHN 07/15/18 03:00 07/20/18 02:59 07/17/18 11:09 Amiodarone HCl (Cordarone) 200 mg EVERY 12 HOURS ORAL 07/15/18 09:00 08/11/18 20:59 07/17/18 09:34 Apixaban (Eliquis) 2.5 mg BID ORAL 07/16/18 18:00 08/15/18 17:59 07/16/18 17:45 Atorvastatin Calcium (Lipitor) 80 mg BEDTIME ORAL 07/15/18 21:00 08/11/18 20:59 07/16/18 20:48 Bisacodyl (Dulcolax) 10 mg DAILYPRN PRN RECTAL Constipation 07/15/18 02:00 08/11/18 01:59 Carvedilol (Coreg) 6.25 mg EVERY 12 HOURS ORAL 07/15/18 09:00 08/11/18 20:59 07/17/18 09:34 Clonidine HCl (Catapres Tab) 0.1 mg Q6H PRN ORAL For High Blood Pressure 07/15/18 02:00 08/11/18 01:59 Docusate Sodium (Colace) 100 mg TID ORAL 07/15/18 09:00 08/12/18 17:59 07/17/18 09:31 Famotidine (Pepcid) 20 mg BID ORAL 07/15/18 09:00 08/12/18 08:59 07/17/18 09:31 Furosemide (Lasix) 20 mg DAILY IV 07/15/18 12:00 08/14/18 11:59 07/16/18 08:35 Hydralazine HCl (Apresoline) 5 mg Q2H PRN IV SBP>160 07/15/18 02:45 08/14/18 00:44 07/15/18 05:24 Promethazine HCl/ Codeine (Phenergan with Codeine) 5 ml Q4H PRN ORAL For Cough 07/15/18 11:00 08/14/18 10:59 Tamsulosin HCl (Flomax) 0.4 mg Q12HR ORAL 07/15/18 09:00 08/12/18 13:44 07/17/18 09:31 Phuc Freitas MD Jul 17, 2018 11:19
[2018-07-17 12:00] VITALS: BP 130/64
--- NOTE | 2018-07-17 12:00 | NUR ---
NURSE NOTES: Pt's SaO2 on RA dropped to 90-91%. Dr. Freitas is aware and states pt can be discharged with home O2. Erendira Forte RN contacted Rand from Case Management and notified her. Erendira also contacted Dr. Moreland- [employer] Supervisor-and left message for further d/c instructions. Awaiting call back. Pt is in no distress. Hooked back to MN, SaO2 95%. R AC IV noted to be edematous. Proceeded to d/c R AC IV and started a 22g IV in L forearm. IV flushed and patent- asymptomatic. Bed in lowest position. Side rails up x 3. Call light within reach. Continuing to monitor pt.
--- NOTE | 2018-07-17 12:52 | NUR ---
NURSE NOTES: NC removed for for 5 minutes. SaO2 dropped to 87% on RA.
--- NOTE | 2018-07-17 12:55 | NUR ---
NURSE NOTES: Received call back from Dr. Moreland. Instructed to d/c pt. Pt back on NC. 4L O2. SaO2 increased to 94%. Pt is stable. No distress noted. Bed in lowest position. Side rails up x 3. Call light within reach.
--- NOTE | 2018-07-17 13:22 | Nephrology Progress Note ---
Assessment/Plan Problem List: (1) Renal failure (ARF), acute on chronic (2) Pacemaker (3) CHF (congestive heart failure) Assessment: cardiomyopathy Assessment renal failure: Likely acute on chronic Dehydration Diarrhea Influenza A Pacemaker Plan lasix for chf Urine studies Monitor renal parameters Avoid Nephrotoxics flomax 2D echo Global left ventricular hypokinesis. Left ventricular ejection fraction estimated to be 40 %. Subjective ROS Limited/Unobtainable: No Constitutional: Reports: malaise Objective Objective Last 24 Hour Vital Signs Date Time Temp Pulse Resp B/P (MAP) Pulse Ox O2 Delivery O2 Flow Rate FiO2 07/17/18 12:00 66 07/17/18 12:00 Nasal Cannula 2.0 07/17/18 12:00 98.1 78 19 130/64 (86) 94 07/17/18 11:20 70 16 99 Room Air 21 07/17/18 11:10 63 18 90 Room Air 21 07/17/18 09:34 75 126/61 07/17/18 08:00 64 07/17/18 08:00 Nasal Cannula 2.0 07/17/18 08:00 98.0 75 17 126/61 (82) 100 07/17/18 07:12 78 18 99 Nasal Cannula 2.0 28 07/17/18 07:01 67 18 99 Nasal Cannula 2.0 28 07/17/18 07:00 Nasal Cannula 2.0 28 07/17/18 07:00 99 Nasal Cannula 2.0 28 07/17/18 04:00 98.1 66 20 112/68 (83) 99 07/17/18 04:00 Nasal Cannula 2.0 07/17/18 03:55 64 18 95 Nasal Cannula 2.0 28 07/17/18 03:44 60 18 92 Nasal Cannula 2.0 28 07/17/18 03:20 92 07/17/18 00:15 71 18 100 Nasal Cannula 2.0 28 07/17/18 00:00 Nasal Cannula 2.0 07/17/18 00:00 98.1 68 20 141/55 (83) 99 07/17/18 00:00 69 18 100 Nasal Cannula 2.0 28 07/16/18 23:30 64 07/16/18 20:49 68 137/59 07/16/18 20:00 98 Nasal Cannula 2.0 28 07/16/18 20:00 99.1 69 18 137/59 (85) 100 07/16/18 20:00 Nasal Cannula 2.0 07/16/18 20:00 68 18 Nasal Cannula 2.0 28 07/16/18 20:00 Nasal Cannula 2.0 28 07/16/18 20:00 72 18 100 Nasal Cannula 2.0 28 07/16/18 19:50 68 18 98 Nasal Cannula 2.0 28 07/16/18 19:36 66 07/16/18 16:21 62 18 100 Nasal Cannula 2.0 28 07/16/18 16:11 69 18 100 Nasal Cannula 2.0 28 07/16/18 16:00 Nasal Cannula 2.0 07/16/18 16:00 60 07/16/18 16:00 98.1 63 20 129/55 (79) 100 Intake and Output 07/16/18 07/17/18 19:00 07:00 Intake Total 570 ml 150 ml Output Total 870 ml 300 ml Balance -300 ml -150 ml Intake Oral 570 ml 150 ml Output Urine Total 870 ml 300 ml Laboratory Tests 07/17/18 10:08: Arterial Blood pH 7.465H, Arterial Blood Partial Pressure CO2 39.7, Arterial Blood Partial Pressure O2 49.0*L, Arterial Blood HCO3 27.9H, Arterial Blood Oxygen Saturation 84.9*L, Arterial Blood Base Excess 3.9H, Lobo Test Positive 07/17/18 10:15: White Blood Count 9.6, Red Blood Count 4.16L, Hemoglobin 11.9L, Hematocrit 36.5L , Mean Corpuscular Volume 88, Mean Corpuscular Hemoglobin 28.6, Mean Corpuscular Hemoglobin Concent 32.6, Red Cell Distribution Width 13.0, Platelet Count 123L, Mean Platelet Volume 10.9H, Neutrophils (%) (Auto) 81.0H, Lymphocytes (%) (Auto) 9.0L, Monocytes (%) (Auto) 9.4, Eosinophils (%) (Auto) 0.1, Basophils (%) (Auto) 0.4, Sodium Level 137, Potassium Level 3.9, Chloride Level 101, Carbon Dioxide Level 29, Anion Gap 7, Blood Urea Nitrogen 14, Creatinine 1.6H, Estimat Glomerular Filtration Rate , Glucose Level 119H, Calcium Level 8.0L Height (Feet): 5 Height (Inches): 8.00 Weight (Pounds): 178 General Appearance: no apparent distress Cardiovascular: normal rate Respiratory/Chest: decreased breath sounds Objective no change Sunil Gill MD Jul 17, 2018 13:22
--- NOTE | 2018-07-17 13:45 | NUR ---
*-* DISCHARGE PLANNING *-* PATIENT REFERRAL SENT TO: [facility] P:[phone] F:[phone]
--- NOTE | 2018-07-17 14:25 | NUR ---
NURSE NOTES: Case Management informed about need for PT home health.
--- NOTE | 2018-07-17 14:28 | NUR ---
DOCTOR OF AUDIOLOGY NOTES SPOKE WITH TRACY FROM [facility], [place] HOME OXYGEN WILL BE DELIVERED TODAY @ BEDSIDE. OK TO DC PT HOME ONCE OXYGEN IS DELIVERED. PT ACCEPTED TO [facility] FOR SERVICES. [facility] [phone]
--- NOTE | 2018-07-17 14:33 | NUR ---
*-* DISCHARGE PLANNING *-* PATIENT HAS BEEN REFERRED TO: [email or web address] [phone] Addendum: 07/17/18 at 1526 by SIMON LEACH CM *-* SPOKE WITH [facility] AND THEY HAVE AGREED TO FOLLOW PATIENT
--- NOTE | 2018-07-17 15:05 | NUR ---
NURSE NOTES: Reviewed prescription meds written by Dr. Ferrari. Noted Tammiflu and 12.5mg Carvidilol PO. Contacted Dr Ferrari and informed him Dr. Zambrano d/c Tammiflu today and that pt's home med list include 3.[address] Ferrari instructed to d/c Tammiflu and keep Carvedilol dose at 3.125mg. Will update pt with these instructions.
[2018-07-17 16:00] VITALS: BP 134/56
--- NOTE | 2018-07-17 17:00 | NUR ---
NURSE NOTES: Pt and his spouse "Cade Vuong" educated about O2 Home Safety and how to use O2 tank. Pt and spouse verbalized understanding. Printed O2 Safety instructions and [employer] contact provided to spouse. Instructed pt's spouse to contact [facility] and to follow up with Dr. Moreland in 1 week. Contact numbers provided and spouse agreed. Also instructed pt and spouse not to continue Tammiflu and keep Coreg dose at 3.125mg per Dr. Ferrari's request. Educated pt and spouse about Influenza vaccine and how to avoid transmission- educational material provided. D/c L forearm peripheral IV and placed gauze. Pt in stable condition and hooked to O2 Tank at 2L. Pt SaO2 at 99%. No cardiopulmonary distress noted. Instructed Pt and spouse to return to ED if pt experiences SOB or chest pain after d/c. Pt and spouse verbalized understanding. Pt discharged per wheel chair with spouse and ESTELA Krishna to home with spouse's vehicle.
[2018-07-17] MEDS ORDERED: NS 275ml ONE (17:12)
[2018-07-17] MEDS ORDERED: Tubing IV Secondary IV ONE (17:12)
--- NOTE | 2018-07-17 19:15 | Progress Note ---
DATE: 07/17/2018 SUBJECTIVE: This is an elderly male, still short of breath and hypoxia which is late entry. The patient was found to be in CHF, started on Lasix, discussed with Pulmonary and Cardiology. PHYSICAL EXAMINATION: VITAL SIGNS: Stable. CHEST: Bilaterally scattered wheezing. CARDIOVASCULAR: Regular rhythm. No gallop. No murmur. ABDOMEN: Soft. EXTREMITIES: ____ CCE NEUROLOGICAL: The patient has no focal deficit. NEUROLOGICAL: Generalized weakness. ASSESSMENT: 1. CHF. 2. Hypoxia. 3. Hypertension. 4. History of pneumonia. PLAN: 1. We will currently continue antibiotics. 2. Continue Lasix. 3. Continue bronchodilator treatment. 4. Pulmonary and Cardiology is on the case. 5. Discussed with the patient and . Sanjeev Ferrari M.D. DR: Savita JOB#: [id number] CC:
--- NOTE | 2018-07-17 20:15 | Discharge Summary ---
DATE OF ADMISSION: 07/12/2018 DATE OF DISCHARGE: 07/17/2018 HOSPITAL COURSE: This is an elderly male, who was admitted for pneumonia, H. influenza, and short of breath, hypoxia. The patient during this hospital course was found to have acute versus chronic renal failure. Nephrology consult was obtained. The patient was given some hydration. The patient become more short of breath and hypoxia. Cardiology consult was obtained. The patient transferred to [facility] and was started on Lasix. Cardiology and pulmonary consult was obtained. The patient is clinically doing better. Short of breath is improved. He has generalized weakness, ordered physical therapy. The patient wants to go home. DISCHARGE DIAGNOSES: 1. Pneumonia. 2. Acute bronchitis. 3. CHF. 4. Hypertension. 5. Hyperlipidemia. DIET: A 2-gram sodium diet. ACTIVITY: As tolerated. DISCHARGE MEDICATIONS: See the list from the hospital. The patient was recommended to follow up office as well as discussed with Dr. Hayden, who is his primary care doctor. The patient is to come back to the emergency room, if again short of breath or any other chest pain. Sanjeev Ferrari M.D. DR: Savita JOB#: [id number] CC:
--- NOTE | 2018-07-17 23:04 | Cardiology Progress Note ---
Assessment/Plan Assessment/Plan 1. Acute heart failure with normal EF by echo, pseudo-normal LV physiology suggestive of moderately elevated LAP, continue lasix, ? ischemic CM given elevated troponin I levels, require cardiac cath once influenza virus is resolved. 2. Severe pulmonary hypertension, ? etiology, some contribution from left heart failure, ? other etiologies. Requires right heart catheterization to verify pulmonary HTN and to evaluate pulmonary vein pressure, i.e PCWP. 3. Influenza pneumonitis 4. PAF, on Eliquis. 5. Permanent pacemaker, normal function. Subjective Subjective Sinus rhythm at rate of 65. Objective Last 24 Hour Vital Signs Date Time Temp Pulse Resp B/P (MAP) Pulse Ox O2 Delivery O2 Flow Rate FiO2 07/17/18 16:00 98.1 65 21 134/56 (82) 99 07/17/18 16:00 Nasal Cannula 2.0 07/17/18 16:00 67 07/17/18 15:08 69 16 98 Nasal Cannula 2.0 28 07/17/18 15:07 69 18 98 Nasal Cannula 2.0 28 07/17/18 12:00 66 07/17/18 12:00 Nasal Cannula 2.0 07/17/18 12:00 98.1 78 19 130/64 (86) 94 07/17/18 11:20 70 16 99 Room Air 21 07/17/18 11:10 63 18 90 Room Air 21 07/17/18 09:34 75 126/61 07/17/18 08:00 64 07/17/18 08:00 Nasal Cannula 2.0 07/17/18 08:00 98.0 75 17 126/61 (82) 100 07/17/18 07:12 78 18 99 Nasal Cannula 2.0 28 07/17/18 07:01 67 18 99 Nasal Cannula 2.0 28 07/17/18 07:00 Nasal Cannula 2.0 28 07/17/18 07:00 99 Nasal Cannula 2.0 28 07/17/18 04:00 98.1 66 20 112/68 (83) 99 07/17/18 04:00 Nasal Cannula 2.0 07/17/18 03:55 64 18 95 Nasal Cannula 2.0 28 07/17/18 03:44 60 18 92 Nasal Cannula 2.0 28 07/17/18 03:20 92 07/17/18 00:15 71 18 100 Nasal Cannula 2.0 28 07/17/18 00:00 Nasal Cannula 2.0 07/17/18 00:00 98.1 68 20 141/55 (83) 99 07/17/18 00:00 69 18 100 Nasal Cannula 2.0 28 07/16/18 23:30 64 Intake and Output 07/16/18 07/17/18 18:59 06:59 Intake Total 570 ml 150 ml Output Total 870 ml 300 ml Balance -300 ml -150 ml Intake Oral 570 ml 150 ml Output Urine Total 870 ml 300 ml 2D Echo: Borderline LVEF ~45-50%, Pseudo-normal LV physio, Sev TR/RVSP ~80 Laboratory Tests Test 07/17/18 10:08 07/17/18 10:15 Arterial Blood pH 7.465 (7.350-7.450) Arterial Blood Partial Pressure CO2 39.7 mmHg (35.0-45.0) Arterial Blood Partial Pressure O2 49.0 mmHg (75.0-100.0) Arterial Blood HCO3 27.9 mmol/L (22.0-26.0) H Arterial Blood Oxygen Saturation 84.9 % (95-100) *L Arterial Blood Base Excess 3.9 (-2-2) H Lobo Test Positive White Blood Count 9.6 K/UL (4.8-10.8) Red Blood Count 4.16 M/UL (4.70-6.10) L Hemoglobin 11.9 G/DL (14.2-18.0) L Hematocrit 36.5 % (42.0-52.0) L Mean Corpuscular Volume 88 FL (80-99) Mean Corpuscular Hemoglobin 28.6 PG (27.0-31.0) Mean Corpuscular Hemoglobin Concent 32.6 G/DL (32.0-36.0) Red Cell Distribution Width 13.0 % (11.6-14.8) Platelet Count 123 K/UL (150-450) L Mean Platelet Volume 10.9 FL (6.5-10.1) H Neutrophils (%) (Auto) 81.0 % (45.0-75.0) H Lymphocytes (%) (Auto) 9.0 % (20.0-45.0) L Monocytes (%) (Auto) 9.4 % (1.0-10.0) Eosinophils (%) (Auto) 0.1 % (0.0-3.0) Basophils (%) (Auto) 0.4 % (0.0-2.0) Sodium Level 137 MMOL/L (136-145) Potassium Level 3.9 MMOL/L (3.5-5.1) Chloride Level 101 MMOL/L (98-107) Carbon Dioxide Level 29 MMOL/L (21-32) Anion Gap 7 mmol/L (5-15) Blood Urea Nitrogen 14 mg/dL (7-18) Creatinine 1.6 MG/DL (0.55-1.30) H Estimat Glomerular Filtration Rate mL/min (>60) Glucose Level 119 MG/DL (74-106) H Calcium Level 8.0 MG/DL (8.5-10.1) L Microbiology Date/Time Source Procedure Growth Status 07/15/18 18:00 Sputum Gram Stain - Final Complete 07/15/18 18:00 Sputum Sputum Culture - Final NORMAL UPPER RESPIRATORY SENAIT PRESENT Complete Objective HEENT: Atraumatic and normocephalic. Anicteric. Pupils are equal, round, and reactive to light and accommodation. Extraocular muscles intact. NECK: JVP is less than 5 cm. No carotid bruits. Carotid upstrokes 2+ bilaterally. CARDIOVASCULAR: Normal S1, S2. There is 3/6 holosystolic murmur at the apex. LUNGS: Bibasilar crackles. ABDOMEN: Soft, nontender, nondistended. No hepatosplenomegaly. Positive bowel sounds. EXTREMITIES: No evidence of edema, clubbing, or cyanosis. Markie Moreland MD Jul 17, 2018 23:04
== END 2018-07-17 17:13 | disposition home health service (06) | DRG 194 ==
LOC: EMR 07:28 → 3E 07:57 → EDBEDREQ 08:08 → 2W 07-15 01:50
DX: J10.00 Influenza due to other identified influenza virus with unspecified type of pneumonia (principal); N17.9 Acute kidney failure, unspecified; I24.9 Acute ischemic heart disease, unspecified; J20.9 Acute bronchitis, unspecified; E78.5 Hyperlipidemia, unspecified; D69.6 Thrombocytopenia, unspecified; I25.10 Atherosclerotic heart disease of native coronary artery without angina pectoris; R09.02 Hypoxemia; Z95.5 Presence of coronary angioplasty implant and graft; I11.0 Hypertensive heart disease with heart failure; I50.9 Heart failure, unspecified; Z95.0 Presence of cardiac pacemaker; N40.0 Benign prostatic hyperplasia without lower urinary tract symptoms; I48.0 Paroxysmal atrial fibrillation; I27.20 Pulmonary hypertension, unspecified; Z79.01 Long term (current) use of anticoagulants
CPT/HCPCS: 36415; 36600; 71045; 80048; 80053; 80061; 81001; 81003; 82248; 82550; 82803; 83036; 83605; 83735; 83880; 84100; 84300; 84484; 84550; 85007; 85025; 86140; 86710; 87070; 87205; 89050; 93005; 93306; 94640; 94664; 94760; 96361; 96374; 96375; 99285; J7620